=== PATIENT | female | born 1970 | race Caucasian/White ===

== ENCOUNTER 2016-12-02 00:25 | Emergency (ER) | payer OTHER, BC ==
[2016-12-02 00:41] VITALS: BP 157/98; PULSE 64; RESP 18; TEMP 98
[2016-12-02] MEDS ORDERED: AZITHROMYCIN 500 MG TAB PO STA (00:59)
[2016-12-02] MEDS ORDERED: IBUPROFEN 600 MG TAB PO STA (00:59)
--- NOTE | 2016-12-02 01:06 | ED ---
General Adult HPI - General Chief complaint: ENT Stated complaint: Ear Pain Time Seen by Provider: 12/02/16 00:47 Source: patient, RN notes reviewed Mode of arrival: ambulatory Limitations: no limitations - History of Present Illness Initial comments: Patient 46-year-old female who presents emergency room today with a chief complaint of increased pain to the right ear. Does admit that symptoms started week ago. Went to the urgent care 2 days ago had a cerumen impaction and it was irrigated. Does admit that the pain increased today. Does admit that she went back to urgent care had a check. States the pain was so bad she was unable to sleep tonight came here to the emergency room. Patient states that her daughter was diagnosed with a ear infection given antibiotic earlier today as well. Denies any other complaints or symptoms at this time. Patient mitts that she tried children's Tylenol at home with little relief. Patient denies any recent fever, chills, shortness of breath, chest pain, back pain, abdominal pain, nausea or vomiting, numbness or tingling, dysuria or hematuria, constipation or diarrhea, headaches or visual changes, or any other complaints. - Related Data Home Medications Medication Instructions Recorded Confirmed Lisinopril [Zestril] 20 mg PO HS 12/29/13 12/02/16 Multivitamins, Thera [Multivitamin] 1 tab PO DAILY 03/23/16 12/02/16 Previous Rx's Medication Instructions Recorded Azithromycin [Zithromax Z-pack] 0 mg PO DIRECTED #6 tab 12/02/16 Ofloxacin [Ofloxacin 0.3% Otic 10 drops RIGHT EAR BID 7 Days 12/02/16 Soln] Allergies Allergy/AdvReac Type Severity Reaction Status Date / Time Penicillins Allergy Unknown Verified 12/02/16 00:41 Childhood Sulfa (Sulfonamide Allergy Rash/Hives Verified 12/02/16 00:41 Antibiotics) Review of Systems ROS Statement: Those systems with pertinent positive or pertinent negative responses have been documented in the HPI. ROS Other: All systems not noted in ROS Statement are negative. Past Medical History Past Medical History: Hypertension Additional Past Medical History / Comment(s): hx neuroendocrine tumor, liver lesions, heart murmur History of Any Multi-Drug Resistant Organisms: None Reported Past Surgical History: Section, Orthopedic Surgery Additional Past Surgical History / Comment(s): whipple and tumor removed. orthopedic surgery john feet, c-sect x 1 Past Anesthesia/Blood Transfusion Reactions: No Reported Reaction Past Psychological History: No Psychological Hx Reported Smoking Status: Former smoker Past Alcohol Use History: Occasional Past Drug Use History: None Reported - Past Family History Mother Family Medical History: No Reported History General Exam - General Exam Comments Initial Comments: General: The patient is awake and alert, in no distress, and does not appear acutely ill. Eye: Pupils are equal, round and reactive to light, extra-ocular movements are intact. No nystagmus. There is normal conjunctiva bilaterally. No signs of icterus. Ears, nose, mouth and throat: There are moist mucous membranes and no oral lesions. Increased swelling to the right ear canal with white drainage. Difficult to see TM. Left is clear. Neck: The neck is supple, there is no tenderness or JVD. Cardiovascular: There is a regular rate and rhythm. No murmur, rub or gallop is appreciated. Respiratory: Lungs are clear to auscultation, respirations are non-labored, breath sounds are equal. No wheezes, stridor, rales, or rhonchi. Musculoskeletal: Normal ROM, no tenderness. Strength 5/5. Sensation intact. Pulses equal bilaterally 2+. Neurological: A&O x 3. CN II-XII intact, There are no obvious motor or sensory deficits. Coordination appears grossly intact. Speech is normal. Skin: Skin is warm and dry and no rashes or lesions are noted. Psychiatric: Cooperative, appropriate mood & affect, normal judgment. Limitations: no limitations Course Vital Signs 12/02/16 00:37 Temperature 98.0 F Pulse Rate 64 Respiratory 18 Rate Blood Pressure 157/98 O2 Sat by Pulse 100 Oximetry Medical Decision Making - Medical Decision Making Patient's findings are consistent with otitis externa. Will be started on antibiotic drops and oral antibiotic. Advised follow-up with the next 2 days return if any symptoms increase or worsen or for any other concerns. Disposition Clinical Impression: Acute otitis externa of right ear Disposition: HOME SELF-CARE Condition: Good Instructions: Otitis Externa (ED) Additional Instructions: Please use medication as discussed. Please follow-up with family doctor in the next 2 days of symptoms have not improved. Please return to emergency room if the symptoms increase or worsen or for any other concerns. Prescriptions: Azithromycin [Zithromax Z-pack] 0 mg PO DIRECTED #6 tab Ofloxacin [Ofloxacin 0.3% Otic Soln] 10 drops RIGHT EAR BID 7 Days Referrals: Esa Keller DO [Primary Care Provider] - 1-2 days Time of Disposition: 01:06
[2016-12-02] MEDS ORDERED: OFLOXACIN 0.3% OPHTH DROPS 5 ML BOTTLE RIGHT EAR SCH (09:00)
== END 2016-12-02 01:21 | disposition home or self-care (01) ==
LOC: EC 00:25
DX: H60.501 Unspecified acute noninfective otitis externa, right ear (principal); Z88.0 Allergy status to penicillin; Z88.2 Allergy status to sulfonamides; Z79.899 Other long term (current) drug therapy; I10 Essential (primary) hypertension; Z87.891 Personal history of nicotine dependence
CPT/HCPCS: 99282

== ENCOUNTER 2016-12-03 22:56 | Emergency (ER) | payer OTHER, BC ==
[2016-12-04] MEDS ORDERED: HYDROcodone/APAP 5-325MG 1 EACH TAB PO STA (01:08)
--- NOTE | 2016-12-04 01:11 | ED ---
General Adult HPI - General Chief complaint: ENT Stated complaint: Ear Pain Time Seen by Provider: 12/03/16 23:25 Source: patient, family, RN notes reviewed, old records reviewed Mode of arrival: ambulatory Limitations: no limitations - History of Present Illness Initial comments: Chief complaint and history of present illness is a 46-year-old female who presents today with a tender swollen right external canal. Diagnosed with otitis externa yesterday. Her family doctor has her on Augmentin at this time. She was also placed on eardrops but they can't get into the ear canal because it swollen.. A Cantor's otowick will be inserted. - Related Data Home Medications Medication Instructions Recorded Confirmed Lisinopril [Zestril] 20 mg PO HS 12/29/13 12/03/16 Multivitamins, Thera [Multivitamin] 1 tab PO DAILY 03/23/16 12/03/16 Amoxicillin/Potassium Clav 1 tab PO Q12HR 12/03/16 12/03/16 [Augmentin 875-125 Tablet] Ibuprofen [Motrin] 600 mg PO ONCE PRN 12/03/16 12/03/16 Previous Rx's Medication Instructions Recorded Ofloxacin [Ofloxacin 0.3% Otic 10 drops RIGHT EAR BID 7 Days 12/02/16 Soln] Hydrocodone/Acetaminophen [[place] 1 each PO Q6HR PRN #20 tab 12/04/16 5-325] Allergies Allergy/AdvReac Type Severity Reaction Status Date / Time Penicillins Allergy Unknown Verified 12/03/16 23:30 Childhood Sulfa (Sulfonamide Allergy Rash/Hives Verified 12/03/16 23:30 Antibiotics) Review of Systems ROS Statement: Those systems with pertinent positive or pertinent negative responses have been documented in the HPI. Review of systems patient has discomfort around the right ear. Evidence of discharge. Ear was irrigated at the clinic several days ago. Now it is swollen shut. Past medical problems include hypertension and history of neuroendocrine tumors. Surgeries , and a Whipple procedure for neuroendocrine tumor. ALLERGIES penicillin and sulfa ROS Other: All systems not noted in ROS Statement are negative. Past Medical History Past Medical History: Hypertension Additional Past Medical History / Comment(s): hx neuroendocrine tumor, liver lesions, heart murmur History of Any Multi-Drug Resistant Organisms: None Reported Past Surgical History: Section, Orthopedic Surgery Additional Past Surgical History / Comment(s): whipple and tumor removed. orthopedic surgery john feet, c-sect x 1 Past Anesthesia/Blood Transfusion Reactions: No Reported Reaction Past Psychological History: No Psychological Hx Reported Smoking Status: Former smoker Past Alcohol Use History: None Reported Past Drug Use History: None Reported - Past Family History Mother Family Medical History: No Reported History General Exam - General Exam Comments Initial Comments: General: The patient is awake and alert, mild to moderate distress because of the pain of right otitis externa. Vital signs temp 97.1 pulse 71 respiratory rate 18 pulse ox 99% room air blood pressure 155/84 Eye: Pupils are equal, extra-ocular movements are intact; there is normal conjunctiva bilaterally. Ears, nose, mouth and throat: Patient has tenderness and swelling all around the right ear as well as a swollen closed external auditory canal. Patient's been trying to put eardrops in but can't because the canal is closed. Neck: The neck is supple, mild preauricular lymphadenopathy. Limitations: no limitations Course Vital Signs 12/03/16 23:05 Temperature 97.1 F L Pulse Rate 71 Respiratory 18 Rate Blood Pressure 155/84 O2 Sat by Pulse 99 Oximetry Medical Decision Making - Medical Decision Making The patient states she does now to penicillin but she's been taking her Augmentin without problems. She can't remember why as a child she was told she has no ALLERGY. She is not having hives she does not have any respiratory distress. And her oncologist put her on Augmentin. She was advised to continue with this, she does develop some adverse reaction. Also advised to place the eardrops on the Cantor otowick 3 times daily. She will also be referred onto her family physician and follow up with ENT if she is not improved. Disposition Clinical Impression: Right otitis externa Disposition: HOME SELF-CARE Condition: Stable Instructions: Otitis Externa (ED) Additional Instructions: Take [place] in addition to your ibuprofen for pain relief. Continue until complete your antibiotics both eardrops and oral medications. Follow-up with your family physician, your oncologist and if needed on-call ENT Dr. Ramírez Prescriptions: Hydrocodone/Acetaminophen [[place] 5-325] 1 each PO Q6HR PRN #20 tab PRN Reason: Pain Referrals: Esa Keller DO [Primary Care Provider] - 1-2 days
[2016-12-04 01:18] VITALS: BP 157/66; PULSE 82; RESP 16; TEMP 97.8
== END 2016-12-04 01:17 | disposition home or self-care (01) ==
LOC: EC 22:56
DX: H60.91 Unspecified otitis externa, right ear (principal); Z87.891 Personal history of nicotine dependence; I10 Essential (primary) hypertension; Z79.899 Other long term (current) drug therapy; Z88.0 Allergy status to penicillin; Z88.2 Allergy status to sulfonamides
CPT/HCPCS: 99283

== ENCOUNTER 2016-12-04 17:19 | Emergency (ER) | payer OTHER, BC ==
[2016-12-04 17:37] VITALS: BP 164/77; PULSE 66; RESP 20; TEMP 99.6
--- NOTE | 2016-12-04 18:15 | ED ---
General Adult HPI - General Chief complaint: ENT Stated complaint: ENT, Revisit Time Seen by Provider: 12/04/16 17:46 Source: patient, RN notes reviewed, old records reviewed Mode of arrival: ambulatory Limitations: no limitations - History of Present Illness Initial comments: Patient 46-year-old female who presents emergency room today with chief complaint of pain to the right ear. Doesn't that she's been diagnosed with otitis media and externa. Patient states that she has been using antibiotics as prescribed. She states she was seen earlier this morning and had a wick placed in the right ear. She states it has fallen out. She states she still having pain swelling to the area. She states she's been using the hydrocodone that was prescribed with little relief the symptoms. She denies any other complaints or associated symptoms at this time. she does admit that she did try to follow-up with ENT specialist today but was not able to get her appointment until next week. Patient denies any recent fever, chills, shortness of breath, chest pain, back pain, abdominal pain, nausea or vomiting, numbness or tingling , dysuria or hematuria, constipation or diarrhea, headaches or visual changes, or any other complaints. - Related Data Home Medications Medication Instructions Recorded Confirmed Lisinopril [Zestril] 20 mg PO HS 12/29/13 12/03/16 Multivitamins, Thera [Multivitamin] 1 tab PO DAILY 03/23/16 12/03/16 Amoxicillin/Potassium Clav 1 tab PO Q12HR 12/03/16 12/03/16 [Augmentin 875-125 Tablet] Ibuprofen [Motrin] 600 mg PO ONCE PRN 12/03/16 12/03/16 Previous Rx's Medication Instructions Recorded Ofloxacin [Ofloxacin 0.3% Otic 10 drops RIGHT EAR BID 7 Days 12/02/16 Soln] Ciprofloxacin HCl [Cipro] 500 mg PO Q12HR #20 day 12/04/16 Hydrocodone/Acetaminophen [[place] 1 each PO Q6HR PRN #20 tab 12/04/16 5-325] Ofloxacin 0.3% Otic Soln [Floxin 10 drops BOTH EARS BID 7 Days 12/04/16 0.3% Otic Soln] Allergies Allergy/AdvReac Type Severity Reaction Status Date / Time Penicillins Allergy Unknown Verified 12/04/16 17:38 Childhood Sulfa (Sulfonamide Allergy Rash/Hives Verified 12/04/16 17:38 Antibiotics) Review of Systems ROS Statement: Those systems with pertinent positive or pertinent negative responses have been documented in the HPI. ROS Other: All systems not noted in ROS Statement are negative. Past Medical History Past Medical History: Hypertension Additional Past Medical History / Comment(s): hx neuroendocrine tumor, liver lesions, heart murmur History of Any Multi-Drug Resistant Organisms: None Reported Past Surgical History: Section, Orthopedic Surgery Additional Past Surgical History / Comment(s): whipple and tumor removed. orthopedic surgery john feet, c-sect x 1 Past Anesthesia/Blood Transfusion Reactions: No Reported Reaction Past Psychological History: No Psychological Hx Reported Smoking Status: Former smoker Past Alcohol Use History: None Reported Past Drug Use History: None Reported - Past Family History Mother Family Medical History: No Reported History General Exam - General Exam Comments Initial Comments: General: The patient is awake and alert, in no distress, and does not appear acutely ill. Eye: Pupils are equal, round and reactive to light, extra-ocular movements are intact. No nystagmus. There is normal conjunctiva bilaterally. No signs of icterus. Ears, nose, mouth and throat: There are moist mucous membranes and no oral lesions. Neck: The neck is supple, there is no tenderness or JVD. Cardiovascular: There is a regular rate and rhythm. No murmur, rub or gallop is appreciated. Respiratory: Lungs are clear to auscultation, respirations are non-labored, breath sounds are equal. No wheezes, stridor, rales, or rhonchi. Musculoskeletal: Normal ROM, no tenderness. Strength 5/5. Sensation intact. Pulses equal bilaterally 2+. Neurological: A&O x 3. CN II-XII intact, There are no obvious motor or sensory deficits. Coordination appears grossly intact. Speech is normal. Skin: Skin is warm and dry and no rashes or lesions are noted. Psychiatric: Cooperative, appropriate mood & affect, normal judgment. Limitations: no limitations Course Vital Signs 12/04/16 17:32 Temperature 99.6 F Pulse Rate 66 Respiratory 20 Rate Blood Pressure 164/77 O2 Sat by Pulse 99 Oximetry Medical Decision Making - Medical Decision Making Case was discussed with ENT custom protection officer Dr. Ramírez recommends changing antibiotic drop to ciprofloxacin. Patient did have photo were placed here in the emergency room. Patient had antibiotics of ciprofloxacin placed into the right ear canal. Patient tolerated well. Patient will be discharged home advised follow-up with ENT over the next 2 days. Disposition Clinical Impression: Acute otitis externa Disposition: HOME SELF-CARE Condition: Good Instructions: Otitis Externa (ED) Additional Instructions: Please continue antibiotic drops as previously prescribed. Please discontinue Augmentin and use Cipro antibiotic as discussed. Please follow-up with the ENT doctor over the next 2 days. Please return to emergency room if symptoms increase or worsen Prescriptions: Ciprofloxacin HCl [Cipro] 500 mg PO Q12HR #20 day Ofloxacin 0.3% Otic Soln [Floxin 0.3% Otic Soln] 10 drops BOTH EARS BID 7 Days Referrals: Esa Keller DO [Primary Care Provider] - 1-2 days Jung Solares DO [Doctor of Osteopathic Medicine] - 1-2 days Time of Disposition: 18:55
== END 2016-12-04 19:15 | disposition home or self-care (01) ==
LOC: EC 17:19
DX: H60.501 Unspecified acute noninfective otitis externa, right ear (principal); I10 Essential (primary) hypertension; Z87.891 Personal history of nicotine dependence; Z79.899 Other long term (current) drug therapy; Z88.0 Allergy status to penicillin; Z88.2 Allergy status to sulfonamides
CPT/HCPCS: 99283

== ENCOUNTER 2016-12-06 16:05 | Emergency (ER) | payer OTHER, BC ==
[2016-12-06 16:12] VITALS: BP 139/89; PULSE 84; RESP 20; TEMP 97.5
--- NOTE | 2016-12-06 16:45 | ED ---
ENT HPI - General Chief complaint: ENT Stated complaint: Ear Pain Time Seen by Provider: 12/06/16 16:13 Source: patient, RN notes reviewed, old records reviewed Mode of arrival: ambulatory Limitations: no limitations - History of Present Illness Initial comments: This is a 46-year-old female presenting with right ear pain. She's been seen in the emergency department four times due to this ear pain with in the last week. Patient reports that she had in the ear wick placed, but reports that the ear wic came out. . Patient reports she's concerned that the ear wick is still partially within the ear.She reports that her ear is feeling much better after being placed on the appropriate antibiotic yesterday. The swelling has went down.She reports that she still has trouble hearing from the ear. - Related Data Home Medications Medication Instructions Recorded Confirmed Lisinopril [Zestril] 20 mg PO HS 12/29/13 12/03/16 Multivitamins, Thera [Multivitamin] 1 tab PO DAILY 03/23/16 12/03/16 Amoxicillin/Potassium Clav 1 tab PO Q12HR 12/03/16 12/03/16 [Augmentin 875-125 Tablet] Ibuprofen [Motrin] 600 mg PO ONCE PRN 12/03/16 12/03/16 Previous Rx's Medication Instructions Recorded Ofloxacin [Ofloxacin 0.3% Otic 10 drops RIGHT EAR BID 7 Days 12/02/16 Soln] Ciprofloxacin HCl [Cipro] 500 mg PO Q12HR #20 day 12/04/16 Hydrocodone/Acetaminophen [[place] 1 each PO Q6HR PRN #20 tab 12/04/16 5-325] Ofloxacin 0.3% Otic Soln [Floxin 10 drops BOTH EARS BID 7 Days 12/04/16 0.3% Otic Soln] Allergies Allergy/AdvReac Type Severity Reaction Status Date / Time Penicillins Allergy Unknown Verified 12/06/16 16:12 Childhood Sulfa (Sulfonamide Allergy Rash/Hives Verified 12/06/16 16:12 Antibiotics) Review of Systems ROS Statement: Those systems with pertinent positive or pertinent negative responses have been documented in the HPI. ROS Other: All systems not noted in ROS Statement are negative. Past Medical History Past Medical History: Hypertension Additional Past Medical History / Comment(s): hx neuroendocrine tumor, liver lesions, heart murmur History of Any Multi-Drug Resistant Organisms: None Reported Past Surgical History: Section, Orthopedic Surgery Additional Past Surgical History / Comment(s): whipple and tumor removed. orthopedic surgery john feet, c-sect x 1 Past Anesthesia/Blood Transfusion Reactions: No Reported Reaction Past Psychological History: No Psychological Hx Reported Smoking Status: Former smoker Past Alcohol Use History: None Reported Past Drug Use History: None Reported - Past Family History Mother Family Medical History: No Reported History General Exam - General Exam Comments Initial Comments: Well. 46-year-old female.No acute distress. Limitations: no limitations General appearance: alert, in no apparent distress Head exam: Present: atraumatic, normocephalic, normal inspection Eye exam: Present: normal appearance, PERRL, EOMI. Absent: scleral icterus, conjunctival injection, periorbital swelling ENT exam: Present: normal exam, mucous membranes moist. Absent: TM's normal bilaterally (right ear canal is edematous. Not able to visualise TM, however there apears to be wax in the canal, possible retained ear wick. ) Neck exam: Present: normal inspection. Absent: tenderness, meningismus, lymphadenopathy Respiratory exam: Present: normal lung sounds bilaterally. Absent: respiratory distress, wheezes, rales, rhonchi, stridor Cardiovascular Exam: Present: regular rate, normal rhythm, normal heart sounds. Absent: systolic murmur, diastolic murmur, rubs, gallop, clicks GI/Abdominal exam: Present: soft, normal bowel sounds. Absent: distended, tenderness, guarding, rebound, rigid Extremities exam: Present: normal inspection, full ROM, normal capillary refill. Absent: tenderness, pedal edema, joint swelling, calf tenderness Back exam: Present: normal inspection Neurological exam: Present: alert, oriented X3, CN II-XII intact Psychiatric exam: Present: normal affect, normal mood Skin exam: Present: warm, dry, intact, normal color. Absent: rash Course Vital Signs 12/06/16 16:09 Temperature 97.5 F L Pulse Rate 84 Respiratory 20 Rate Blood Pressure 139/89 O2 Sat by Pulse 100 Oximetry Medical Decision Making - Medical Decision Making This is a 46-year-old female presenting with right ear pain. She's been seen in the emergency department four times due to this ear pain with in the last week. She has been diagnosed with otitis externa after having her ear irrigated. Patient reports that she had in the ear wick placed, but reports that the ear wic came out. . Patient reports she's concerned that the ear wick is still partially within the ear.She reports that her ear is feeling much better after being placed on the appropriate antibiotic yesterday. The swelling has went down.She reports that she still has trouble hearing from the ear. Right ear canal is still edematous, and patient TM not fully visualized. She reports it is improving. Possiblity of retained ear wick, multiple attempts to remove the foreign body and it appears to only be ear cerumen. A new ear wick was installed, and I used patient ear drops to place it. Patient agrees to follow upwith ENT. Return parameters discussed. Disposition Clinical Impression: Acute otitis externa of right ear Disposition: HOME SELF-CARE Condition: Good Instructions: Otitis Externa (ED) Additional Instructions: Patient is follow-up with her primary care provider and ENT specialist. Return to the emergency department if any alarming signs or symptoms occur. Take antibiotics as directed. Referrals: Esa Keller DO [Primary Care Provider] - 1-2 days Jung Solares DO [Doctor of Osteopathic Medicine] - 1-2 days Time of Disposition: 16:45
== END 2016-12-06 16:59 | disposition home or self-care (01) ==
LOC: EC 16:05
DX: H60.501 Unspecified acute noninfective otitis externa, right ear (principal); I10 Essential (primary) hypertension; Z87.891 Personal history of nicotine dependence; Z79.899 Other long term (current) drug therapy; Z88.0 Allergy status to penicillin; Z88.2 Allergy status to sulfonamides
CPT/HCPCS: 99283

== ENCOUNTER 2017-01-07 14:59 | Emergency (ER) | payer OTHER, BC ==
[2017-01-07] MEDS ORDERED: ORPHENADRINE 30 MG/ML 2 ML VIAL IM STA (15:30)
[2017-01-07] MEDS ORDERED: KETOROLAC 60 MG/2 ML VIAL IM STA (15:30)
--- NOTE | 2017-01-07 15:30 | ED ---
General Adult HPI - General Chief complaint: Back Pain/Injury Stated complaint: Back Pain Time Seen by Provider: 01/07/17 15:14 Source: patient, RN notes reviewed Mode of arrival: ambulatory Limitations: no limitations - History of Present Illness Initial comments: 46-year-old female presents to the emergency department with a chief complaint of right sided low back pain. Patient states she's been about 2 or 3 days. She states that she twisted she will that she then she has increased pain. 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 Patient states it radiated into her back. Patient states there is no falls traumas or injuries to the area. Patient states she hasn't had any changes in urination any nausea or vomiting. Patient states that she was concerned due to her discomfort so she thought that she should be seen.Patient denies any recent fever, chills, shortness of breath , chest pain, abdominal pain, nausea vomiting, numbness or tingling, dysuria or hematuria, constipation or diarrhea, headaches or visual changes, or any other current symptoms. - Related Data Home Medications Medication Instructions Recorded Confirmed Lisinopril [Zestril] 20 mg PO HS 12/29/13 01/07/17 Multivitamins, Thera [Multivitamin] 1 tab PO DAILY 03/23/16 01/07/17 Previous Rx's Medication Instructions Recorded Ciprofloxacin HCl [Cipro] 500 mg PO Q12HR #14 tablet 01/07/17 Ibuprofen [Motrin] 600 mg PO Q6HR PRN #20 tab 01/07/17 Orphenadrine [Norflex] 100 mg PO Q12H #10 tablet.er 01/07/17 Allergies Allergy/AdvReac Type Severity Reaction Status Date / Time Penicillins Allergy Unknown Verified 01/07/17 15:13 Childhood Sulfa (Sulfonamide Allergy Rash/Hives Verified 01/07/17 15:13 Antibiotics) Review of Systems ROS Statement: Those systems with pertinent positive or pertinent negative responses have been documented in the HPI. ROS Other: All systems not noted in ROS Statement are negative. Past Medical History Past Medical History: Hypertension Additional Past Medical History / Comment(s): hx neuroendocrine tumor, liver lesions, heart murmur History of Any Multi-Drug Resistant Organisms: None Reported Past Surgical History: Section, Orthopedic Surgery Additional Past Surgical History / Comment(s): whipple and tumor removed. orthopedic surgery john feet, c-sect x 1 Past Anesthesia/Blood Transfusion Reactions: No Reported Reaction Past Psychological History: No Psychological Hx Reported Smoking Status: Former smoker Past Alcohol Use History: Rare Past Drug Use History: None Reported - Past Family History Mother Family Medical History: No Reported History General Exam Limitations: no limitations General appearance: alert, in no apparent distress Head exam: Present: atraumatic, normocephalic, normal inspection ENT exam: Present: normal exam, mucous membranes moist Neck exam: Present: normal inspection. Absent: tenderness, meningismus, lymphadenopathy Respiratory exam: Present: normal lung sounds bilaterally. Absent: respiratory distress, wheezes, rales, rhonchi, stridor Cardiovascular Exam: Present: regular rate, normal rhythm, normal heart sounds. Absent: systolic murmur, diastolic murmur, rubs, gallop, clicks Extremities exam: Present: normal inspection, full ROM, normal capillary refill. Absent: tenderness, pedal edema, joint swelling, calf tenderness Back exam: Present: normal inspection, full ROM, paraspinal tenderness (Right). Absent: tenderness, rash noted Expanded Back exam: Negative Straight Leg Raising: Left, Right Neurological exam: Present: alert, oriented X3, CN II-XII intact Psychiatric exam: Present: normal affect, normal mood Skin exam: Present: warm, dry, intact, normal color. Absent: rash Course Vital Signs 01/07/17 15:09 Temperature 99.5 F Pulse Rate 90 Respiratory 20 Rate Blood Pressure 162/88 O2 Sat by Pulse 97 Oximetry Medical Decision Making - Medical Decision Making 46-year-old female presents to the emergency department with what appears to be lumbar strain. xrays reviewed as well as CAT scan and blood work. There is concern for UTI along with lumbar strain.. This time we did discuss follow-up and return parameters all patient's questions. pateint in agreement with plan. Patient will be discharged home. - Lab Data Result diagrams: 01/07/17 15:55 01/07/17 15:55 Lab Results 01/07/17 01/07/17 01/07/17 Range/Units 15:25 15:55 15:55 WBC 8.5 (3.8-10.6) k/uL RBC 4.28 (3.80-5.40) m/uL Hgb 11.6 (11.4-16.0) gm/dL Hct 34.4 (34.0-46.0) % MCV 80.4 (80.0-100.0) fL MCH 27.1 (25.0-35.0) pg MCHC 33.7 (31.0-37.0) g/dL RDW 13.9 (11.5-15.5) % Plt Count 295 (150-450) k/uL Neutrophils % 60 % Lymphocytes % 28 % Monocytes % 4 % Eosinophils % 6 % Basophils % 0 % Neutrophils # 5.1 (1.3-7.7) k/uL Lymphocytes # 2.4 (1.0-4.8) k/uL Monocytes # 0.3 (0-1.0) k/uL Eosinophils # 0.5 (0-0.7) k/uL Basophils # 0.0 (0-0.2) k/uL Sodium 141 (137-145) mmol/L Potassium 4.4 (3.5-5.1) mmol/L Chloride 105 (98-107) mmol/L Carbon Dioxide 26 (22-30) mmol/L Anion Gap 10 mmol/L BUN 13 (7-17) mg/dL Creatinine 0.70 (0.52-1.04) mg/dL Est GFR (MDRD) Af Amer >60 (>60 ml/min/1.73 sqM) Est GFR (MDRD) Non-Af >60 (>60 ml/min/1.73 sqM) Glucose 103 H (74-99) mg/dL Calcium 9.2 (8.4-10.2) mg/dL Total Bilirubin 0.2 (0.2-1.3) mg/dL AST 36 (14-36) U/L ALT 58 H (9-52) U/L Alkaline Phosphatase 84 (38-126) U/L Total Protein 7.0 (6.3-8.2) g/dL Albumin 4.1 (3.5-5.0) g/dL Urine Color Yellow Urine Appearance Clear (Clear) Urine pH 6.5 (5.0-8.0) Ur Specific [place] 1.015 (1.001-1.035) Urine Protein Negative (Negative) Urine Glucose (UA) Negative (Negative) Urine Ketones Negative (Negative) Urine Blood Large H (Negative) Urine Nitrite Negative (Negative) Urine Bilirubin Negative (Negative) Urine Urobilinogen <2.0 (<2.0) mg/dL Ur Leukocyte Esterase Small H (Negative) Urine RBC 42 H (0-5) /hpf Urine WBC 14 H (0-5) /hpf Ur Squamous Epith Cells 3 (0-4) /hpf Amorphous Sediment Occasional H (None) /hpf Urine Bacteria Occasional H (None) /hpf Hyaline Casts 7 H (0-2) /lpf Urine Mucus Rare H (None) /hpf - Radiology Data Radiology results: report reviewed, image reviewed Disposition Clinical Impression: Lumbar strain, UTI (urinary tract infection), Ovarian cyst, Hepatosplenomegaly Disposition: HOME SELF-CARE Condition: Stable Instructions: Low Back Strain (ED), Lower Back Exercises (ED) Additional Instructions: Please use medication as discussed. Please follow up with family doctor if symptoms have not improved over the next two days. Please return to the emergency room if your symptoms increase or worsen or for any other concerns. Prescriptions: Ciprofloxacin HCl [Cipro] 500 mg PO Q12HR #14 tablet Ibuprofen [Motrin] 600 mg PO Q6HR PRN #20 tab PRN Reason: Pain Orphenadrine [Norflex] 100 mg PO Q12H #10 tablet.er Referrals: Esa Keller DO [Primary Care Provider] - 1-2 days Time of Disposition: 16:41
[2017-01-07 15:39] LABS: Amorphous Sediment,Urine Occasional /hpf; Appearance,Urine Clear (Clear); Bacteria,Urine Occasional /hpf; Bilirubin,Urine Negative (Negative); Glucose,Urine (UA) Negative (Negative); Ketones,Urine Negative (Negative); Leukocyte Esterase,Urine Small (Negative); Mucus,Urine Rare /hpf; Nitrite,Urine Negative (Negative); PH, Urine 6.5 (5.0-8.0); Particle Count 3207; Protein,Urine Negative (Negative); RBC,Urine 42 /hpf (0-5); Specific Gravity,Urine 1.015 (1.001-1.035); Squamous Epithelial Cell,Urine 3 /hpf (0-4); UA Billing (MACRO vs. MICRO) MICRO; Urobilinogen,Urine <2.0 mg/dL (<2.0); WBC,Urine 14 /hpf (0-5)
--- NOTE | 2017-01-07 15:46 | XR ---
EXAM TYPE: LUMBAR SPINE X RAY SERIES COMPARISON: NONE HISTORY: right sided lower back pain TECHNIQUE: 4 views are submitted. FINDINGS: Alignment is anatomic. The pedicles are intact. The transverse processes are intact. There is no s pondylolysis or spondylolisthesis. Hypertrophic and degenerative change of the spine seen with most marked findings at L4-5 and L5-S1. IMPRESSION: 1. Degenerative disc disease at multiple levels. Correlate with MRI as clinically warranted.
[2017-01-07] MEDS ORDERED: SODIUM CHLORIDE 0.9% 1,000 ML IV STA (15:47)
[2017-01-07 16:18] LABS: Basophils % (A) 0 %; CH 26.5; CHCM 33.1; Eosinophils # (A) 0.5 k/uL (0-0.7); Eosinophils % (A) 6 %; HCT 34.4 % (34.0-46.0); HGB 11.6 gm/dL (11.4-16.0); Luc # (Auto) 0.14; Luc % (Auto) 2; Lymphocytes # (A) 2.4 k/uL (1.0-4.8); Lymphocytes % (A) 28 %; MCH 27.1 pg (25.0-35.0); MCHC 33.7 g/dL (31.0-37.0); MCV 80.4 fL (80.0-100.0); Mean Platelet Volume 7.2; Monocytes # (A) 0.3 k/uL (0-1.0); Monocytes % (A) 4 %; Neutrophils # (A) 5.1 k/uL (1.3-7.7); Neutrophils % (A) 60 %; RBC 4.28 m/uL (3.80-5.40); RDW 13.9 % (11.5-15.5); WBC 8.5 k/uL (3.8-10.6)
[2017-01-07 16:20] LABS: ALT 58 U/L (9-52); AST 36 U/L (14-36); Alkaline Phosphatase 84 U/L (38-126); Anion Gap 10 mmol/L; Blood Urea Nitrogen 13 mg/dL (7-17); Calcium 9.2 mg/dL (8.4-10.2); Carbon Dioxide 26 mmol/L (22-30); Chloride 105 mmol/L (98-107); Glucose 103 mg/dL (74-99); Non-African American GFR(MDRD) >60 (>60 ml/min/1.73 sqM); Potassium 4.4 mmol/L (3.5-5.1); Sodium 141 mmol/L (137-145); Total Bilirubin 0.2 mg/dL (0.2-1.3)
--- NOTE | 2017-01-07 16:26 | CT ---
EXAMINATION TYPE: CT abdomen pelvis wo con DATE OF EXAM: 01/07/2017 COMPARISON: Previous study dated 05/23/2012 HISTORY: Right flank pain. CT DLP: 1105.00 mGycm Automated exposure control for dose reduction was used. FINDINGS: Visualized portions of the lungs are clear. There is no pleural or pericardial fluid. The h eart is not enlarged. Within the abdomen, the liver is enlarged measuring 24 cm. The spleen is upper limits of normal in si ze measuring 13 cm. The liver is fatty infiltrated with focal areas of fatty sparing. The gallbladder is not identified. Both adrenal glands are normal. There is no evidence of hydronephrosis or nephrolithiasis. Limited views of the pancreas are unremarkable. There is stable, shotty para-aortic and paracaval adenopathy. There is a 2.1 cm right ovarian cyst. There is follicular change in the left ovary. The uterus is unr emarkable. The bladder is unremarkable. There is some thickening in the mid sigmoid colon. Much of the descending colon is collapsed making i t difficult to assess colonic wall thickening. The appendix is normal. Small bowel loops are normal in caliber. There is no free fluid and no free air identified. There is mild degenerative disc disease and hypertrophic spondylosis within the spine. No bony destru ctive lesion is seen. IMPRESSION: 1. HEPATOMEGALY AND BORDERLINE SPLENOMEGALY WITH FATTY INFILTRATION OF THE LIVER. 2. NO EVIDENCE OF NEPHROLITHIASIS OR HYDRONEPHROSIS. 3. 2.1 CM RIGHT OVARIAN CYST. 4. THICKENING IN THE SIGMOID COLON. I CANNOT EXCLUDE SOME THICKENING OF THE DESCENDING COLON. PLEASE CORRELATE CLINICALLY FOR COLITIS. 5. MILD DEGENERATIVE CHANGE IN THE SPINE.
[2017-01-07 16:48] VITALS: BP 159/91; PULSE 69; RESP 18; TEMP 97
== END 2017-01-07 17:02 | disposition home or self-care (01) ==
LOC: EC 14:59
DX: S39.012A Strain of muscle, fascia and tendon of lower back, initial encounter (principal); N83.201 Unspecified ovarian cyst, right side; N39.0 Urinary tract infection, site not specified; R16.2 Hepatomegaly with splenomegaly, not elsewhere classified; I10 Essential (primary) hypertension; Z87.891 Personal history of nicotine dependence; Z79.899 Other long term (current) drug therapy; Z88.0 Allergy status to penicillin; Z88.2 Allergy status to sulfonamides; Z53.20 Procedure and treatment not carried out because of patient's decision for unspecified reasons; X58.XXXA Exposure to other specified factors, initial encounter
CPT/HCPCS: 36415; 80053; 85025; 81001; 87086; 72100; 74176; 99284; 96365; 96361; 96372; J0696; J1885

== ENCOUNTER 2017-03-25 12:08 | Emergency (ER) | payer OTHER, BC ==
[2017-03-25 12:54] VITALS: BP 165/98; PULSE 62; RESP 18; TEMP 97.7
[2017-03-25] MEDS ORDERED: ORPHENADRINE 30 MG/ML 2 ML VIAL IM STA (13:08)
[2017-03-25] MEDS ORDERED: predniSONE 50 MG TAB PO STA (13:08)
--- NOTE | 2017-03-25 13:21 | ED ---
Back Pain HPI - General Chief Complaint: Back Pain/Injury Stated Complaint: Back Pain Time Seen by Provider: 03/25/17 12:54 Source: patient, RN notes reviewed Limitations: no limitations - History of Present Illness Initial Comments: This is a 46-year-old female who presents to the emergency department with chief complaint of right-sided back pain. 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 Patient states that she does repetitive movements of right-sided twisting every day for work. 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 Patient states that she was seen here in December with lumbar back pain and at that time the pain was much worse. When the pain came on this morning she was worried it was going to get as bad as it did in December. Patient states that currently her pain has significantly decreased because she took 400 mg of ibuprofen prior to arrival. Patient also states that while walking this morning she felt radiation of sharp pain down her right buttock which she attributes to sciatica. Patient denies saddle paresthesias or loss of bladder or bowel function. Denies fever, chills, chest pain, shortness of breath, abdominal pain, nausea or vomiting, constipation or diarrhea, dysuria or hematuria, numbness or tingling, headache or vision changes. - Related Data Home Medications Medication Instructions Recorded Confirmed Lisinopril [Zestril] 20 mg PO HS 12/29/13 01/07/17 Multivitamins, Thera [Multivitamin] 1 tab PO DAILY 03/23/16 01/07/17 Previous Rx's Medication Instructions Recorded Ciprofloxacin HCl [Cipro] 500 mg PO Q12HR #14 tablet 01/07/17 Ibuprofen [Motrin] 600 mg PO Q6HR PRN #20 tab 01/07/17 Orphenadrine [Norflex] 100 mg PO Q12H #10 tablet.er 01/07/17 Orphenadrine [Norflex] 100 mg PO Q12H #10 tablet.er 03/25/17 predniSONE 20 mg PO DAILY #4 tab 03/25/17 Allergies Allergy/AdvReac Type Severity Reaction Status Date / Time Penicillins Allergy Unknown Verified 03/25/17 12:54 Childhood Sulfa (Sulfonamide Allergy Rash/Hives Verified 03/25/17 12:54 Antibiotics) Review of Systems ROS Statement: Those systems with pertinent positive or pertinent negative responses have been documented in the HPI. ROS Other: All systems not noted in ROS Statement are negative. Past Medical History Past Medical History: Hypertension Additional Past Medical History / Comment(s): hx neuroendocrine tumor, liver lesions, heart murmur History of Any Multi-Drug Resistant Organisms: None Reported Past Surgical History: Section, Orthopedic Surgery Additional Past Surgical History / Comment(s): whipple and tumor removed. orthopedic surgery john feet, c-sect x 1 Past Anesthesia/Blood Transfusion Reactions: No Reported Reaction Past Psychological History: No Psychological Hx Reported Smoking Status: Former smoker Past Alcohol Use History: Rare Past Drug Use History: None Reported - Past Family History Mother Family Medical History: No Reported History General Exam - General Exam Comments Initial Comments: General: Awake and alert, well-developed; in no apparent distress. Pleasant and cooperative woman. HEENT: Head atraumatic, normocephalic. Pupils are equal, round and reactive to light. Extraocular movements intact. Oropharynx moist without erythema or exudate. Neck: Supple. Normal ROM. No tenderness. Cardiovascular: Regular rate and rhythm. No murmurs, rubs or gallops. Chest symmetrical. Respiratory: Lungs clear to auscultation bilaterally. No wheezes, rales or rhonchi. Normal respiratory effort with no use of accessory muscles. Musculoskeletal: Patient has full and active range of motion of full spine. There is tenderness on palpation of right sided paraspinal muscles. No vertebral bony point tenderness. Pain is elicited with right side-bending and twisting. Sensation is intact. Pedal and posterior tibial pulses are 2+ equal and palpable bilaterally. No CVA tenderness bilaterally. Skin: [place], warm and dry without rashes or lesions. Neurological: Alert and oriented x3. CN II-XII grossly intact. Speech is fluent and answers are appropriate. No focal neuro deficits. Psychiatric: Normal mood and affect. No overt signs of depression or anxiety noted. Limitations: no limitations Course Vital Signs 03/25/17 12:49 Temperature 97.7 F Pulse Rate 62 Respiratory 18 Rate Blood Pressure 165/98 O2 Sat by Pulse 100 Oximetry Medical Decision Making - Medical Decision Making This is a 46-year-old female who presents to the emergency department with chief complaint of right-sided lumbar back pain. Patient denies any injury or trauma. 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 Patient denies any saddle paresthesias or loss of bladder or bowel function. She denies any numbness or tingling. Patient is in no acute distress at this time and is feeling well. While in the emergency department she was given steroids and a muscle relaxer. She will be discharged home with a short course of steroids and muscle relaxers. She was also recommended to continue taking ibuprofen as needed. Patient is in agreement to the plan and voices understanding. All questions were answered. Disposition Clinical Impression: Strain of lumbar region, Sciatica Disposition: HOME SELF-CARE Condition: Good Instructions: Sciatica (ED), Low Back Strain (ED), Lower Back Exercises (ED) Additional Instructions: Please take medications as prescribed. Please follow up with primary care provider within 1-2 days. Return to emergency department if symptoms should worsen or any concerns arise. Prescriptions: Orphenadrine [Norflex] 100 mg PO Q12H #10 tablet.er predniSONE 20 mg PO DAILY #4 tab Referrals: Esa Keller DO [Primary Care Provider] - 1-2 days Time of Disposition: 13:37
== END 2017-03-25 13:35 | disposition home or self-care (01) ==
LOC: EC 12:08
DX: S39.012A Strain of muscle, fascia and tendon of lower back, initial encounter (principal); M54.31 Sciatica, right side; I10 Essential (primary) hypertension; Z87.891 Personal history of nicotine dependence; Z88.0 Allergy status to penicillin; Z88.2 Allergy status to sulfonamides; Z79.899 Other long term (current) drug therapy; X50.3XXA Overexertion from repetitive movements, initial encounter; Y93.89 Activity, other specified
CPT/HCPCS: 99283; 96372; J2360; J7512

== ENCOUNTER → 2018-09-08 | Outpatient (CLI) | payer OTHER, BC ==
--- NOTE | 2018-09-09 12:58 | MM ---
Reason for exam: screening (asymptomatic). Last mammogram was performed 5 years ago. History: Patient history of other cancer. Family history of breast cancer in paternal grandmother. Physical Findings: A clinical breast exam by your physician is recommended on an annual basis and results should be correlated with mammographic findings. MG 3D Screening Mammo W/Cad Bilateral CC and MLO view(s) were taken. Prior study comparison: September 05, 2013, bilateral digital screening mammo w/CAD. June 13, 2010, bilateral digital screening mammo w/CAD. The breast tissue is heterogeneously dense. This may lower the sensitivity of mammography. There is no discrete abnormality. ASSESSMENT: Negative, BI-RAD 1 RECOMMENDATION: Routine screening mammogram of both breasts in 1 year.
== END | disposition home or self-care (01) ==
LOC: RADMAMWWP 13:33
PROVIDERS: ATTEND Obstetrics & Gynecology
DX: Z12.31 Encounter for screening mammogram for malignant neoplasm of breast (principal)
CPT/HCPCS: 77063; 77067

== ENCOUNTER → 2019-01-23 | Outpatient (CLI) | payer OTHER, BC ==
[2019-01-23 20:53] LABS: Basophils % (A) 1 %; Eosinophils # (A) 0.1 k/uL (0-0.7); Eosinophils % (A) 4 %; HCT 31.3 % (34.0-46.0); HGB 10.5 gm/dL (11.4-16.0); Lymphocytes # (A) 1.2 k/uL (1.0-4.8); Lymphocytes % (A) 35 %; MCH 26.5 pg (25.0-35.0); MCHC 33.7 g/dL (31.0-37.0); MCV 78.5 fL (80.0-100.0); Mean Platelet Volume 8.7; Monocytes # (A) 0.1 k/uL (0-1.0); Monocytes % (A) 4 %; Neutrophils # (A) 1.9 k/uL (1.3-7.7); Neutrophils % (A) 55 %; Platelet Count 230 k/uL (150-450); RBC 3.98 m/uL (3.80-5.40); RDW 12.8 % (11.5-15.5); WBC 3.5 k/uL (3.8-10.6)
== END | disposition home or self-care (01) ==
LOC: LABWHC1 15:52
PROVIDERS: ATTEND Radiology Radiation Oncology
DX: C79.51 Secondary malignant neoplasm of bone (principal)
CPT/HCPCS: 36415; 85025

== ENCOUNTER 2019-05-29 10:45 | Emergency (ER) | payer OTHER, BC ==
[2019-05-29 11:36] LABS: Glucose,Whole Blood 362 mg/dL (75-99)
--- NOTE | 2019-05-29 11:45 | ED ---
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 hale. Patient also is a diabetic. Patient states that her sugars were over 400 and she's been very thirsty and urinating a lot so she decided come to the emergency department today. - Related Data Home Medications Medication Instructions Recorded Confirmed Lisinopril [Zestril] 20 mg PO HS 12/29/13 02/28/19 Multivitamins, Thera [Multivitamin] 1 tab PO DAILY 03/23/16 02/28/19 Cyclobenzaprine [Flexeril] 5 mg PO DAILY 02/28/19 02/28/19 Octreotide Lar [SandoSTATIN LAR] 20 mg SQ QMONTH 02/28/19 02/28/19 Ondansetron HCl 8 mg PO DAILY 02/28/19 02/28/19 Vit D3/Folic Acid/B2/B6/B12 1 tab PO DAILY 02/28/19 02/28/19 [Folgard Tablet] metFORMIN HCL 500 mg PO DAILY 02/28/19 02/28/19 metFORMIN HCL [metFORMIN HCL ER 1,000 mg PO DAILY 02/28/19 02/28/19 Osmotic] Previous Rx's Medication Instructions Recorded Ciprofloxacin HCl [Cipro] 500 mg PO Q12HR #14 tablet 01/07/17 Ibuprofen [Motrin] 600 mg PO Q6HR PRN #20 tab 01/07/17 Allergies Allergy/AdvReac Type Severity Reaction Status Date / Time Penicillins Allergy Unknown Verified 05/29/19 10:55 Childhood Sulfa (Sulfonamide Allergy Rash/Hives Verified 05/29/19 10:55 Antibiotics) Review of Systems ROS Statement: Those systems with pertinent positive or pertinent negative responses have been documented in the HPI. ROS Other: All systems not noted in ROS Statement are negative. Past Medical History Past Medical History: Cancer, Chest Pain / Angina, Diabetes Mellitus, Hy pertension Additional Past Medical History / Comment(s): hx neuroendocrine tumor, liver lesions, heart murmur History of Any Multi-Drug Resistant Organisms: None Reported Past Surgical History: Section, Orthopedic Surgery Additional Past Surgical History / Comment(s): whipple and tumor removed. orthopedic surgery john feet, c-sect x 1 Past Anesthesia/Blood Transfusion Reactions: No Reported Reaction Past Psychological History: No Psychological Hx Reported Smoking Status: Former smoker Past Alcohol Use History: None Reported Past Drug Use History: None Reported - Past Family History Mother Family Medical History: No Reported History General Exam - General Exam Comments Initial Comments: GENERAL: Patient is well-developed and well-nourished. Patient is nontoxic and well- hydrated and is in no acute distress. ENT: Neck is soft and supple. No significant lymphadenopathy is noted. Oropharynx is clear. Moist mucous membranes. Neck has full range of motion without eliciting any pain. EYES: The sclera were anicteric and conjunctiva were pink and moist. Extraocular movements were intact and pupils were equal round and reactive to light. Eyelids were unremarkable. PULMONARY: Unlabored respirations. Good breath sounds bilaterally. No audible rales rhonchi or wheezing was noted. CARDIOVASCULAR: There is a regular rate and rhythm without any murmurs gallops or rubs. ABDOMEN: Soft and nontender with normal bowel sounds. No palpable organomegaly was noted. There is no palpable pulsatile mass. SKIN: Skin is clear with no lesions or rashes and otherwise unremarkable. NEUROLOGIC: Patient is alert and oriented x3. Cranial nerves II through XII are grossly intact. Motor and sensory are also intact. Normal speech, volume and content. Symmetrical smile. MUSCULOSKELETAL: Normal extremities with adequate strength and full range of motion. No lower extremity swelling or edema. No calf tenderness. LYMPHATICS: No significant lymphadenopathy is noted PSYCHIATRIC: Normal psychiatric evaluation. Limitations: no limitations Course Vital Signs 05/29/19 10:50 Temperature 98.3 F Pulse Rate 77 Respiratory 18 Rate Blood Pressure 164/102 O2 Sat by Pulse 98 Oximetry Medical Decision Making - Medical Decision Making EKG shows normal sinus rhythm at 70 bpm KS interval is 146 QRS is under QT intervals 400 QTC is 432. Patient's EKG shows no ST segment elevation or depression or T wave abnormalities are noted. Patient's chest x-ray shows no acute abnormality. Patient was given 10 units of NovoLog in the emergency department and her glucose started to come down. Patient also was given a liter half of fluid. Patient states she was already given Jardiance but has not started it yet. She states she will start and follow-up with her doctor as soon as possible ensured he has an appointment Dr. Gallardo on Wednesday. - Lab Data Result diagrams: 05/29/19 11:37 05/29/19 11:37 Lab Results 05/29/19 05/29/19 05/29/19 Range/Units 11:35 11:37 11:37 WBC 4.3 (3.8-10.6) k/uL RBC 4.62 (3.80-5.40) m/uL Hgb 11.9 (11.4-16.0) gm/dL Hct 35.4 (34.0-46.0) % MCV 76.6 L (80.0-100.0) fL MCH 25.8 (25.0-35.0) pg MCHC 33.6 (31.0-37.0) g/dL RDW 13.9 (11.5-15.5) % Plt Count 220 (150-450) k/uL Neutrophils % 70 % Lymphocytes % 19 % Monocytes % 4 % Eosinophils % 4 % Basophils % 1 % Neutrophils # 3.0 (1.3-7.7) k/uL Lymphocytes # 0.8 L (1.0-4.8) k/uL Monocytes # 0.2 (0-1.0) k/uL Eosinophils # 0.2 (0-0.7) k/uL Basophils # 0.0 (0-0.2) k/uL Sodium 136 L (137-145) mmol/L Potassium 4.4 (3.5-5.1) mmol/L Chloride 99 (98-107) mmol/L Carbon Dioxide 26 (22-30) mmol/L Anion Gap 11 mmol/L BUN 17 (7-17) mg/dL Creatinine 0.68 (0.52-1.04) mg/dL Est GFR (CKD-EPI)AfAm >90 (>60 ml/min/1.73 sqM) Est GFR (CKD-EPI)NonAf >90 (>60 ml/min/1.73 sqM) Glucose 369 H (74-99) mg/dL POC Glucose (mg/dL) 362 H (75-99) mg/dL POC Glu Sleeve Setter Safety Stitch ID [place] Calcium 9.4 (8.4-10.2) mg/dL Total Bilirubin 0.5 (0.2-1.3) mg/dL AST 115 H (14-36) U/L ALT 116 H (4-34) U/L Alkaline Phosphatase 108 (38-126) U/L Total Protein 7.8 (6.3-8.2) g/dL Albumin 4.5 (3.5-5.0) g/dL Urine Color Urine Appearance (Clear) Urine pH (5.0-8.0) Ur Specific [place] (1.001-1.035) Urine Protein (Negative) Urine Glucose (UA) (Negative) Urine Ketones (Negative) Urine Blood (Negative) Urine Nitrite (Negative) Urine Bilirubin (Negative) Urine Urobilinogen (<2.0) mg/dL Ur Leukocyte Esterase (Negative) Urine RBC (0-5) /hpf Urine WBC (0-5) /hpf Ur Squamous Epith Cells (0-4) /hpf Urine Bacteria (None) /hpf Acetone, Qual Negative (Negative) 05/29/19 05/29/19 05/29/19 Range/Units 11:37 12:45 13:23 WBC (3.8-10.6) k/uL RBC (3.80-5.40) m/uL Hgb (11.4-16.0) gm/dL Hct (34.0-46.0) % MCV (80.0-100.0) fL MCH (25.0-35.0) pg MCHC (31.0-37.0) g/dL RDW (11.5-15.5) % Plt Count (150-450) k/uL Neutrophils % % Lymphocytes % % Monocytes % % Eosinophils % % Basophils % % Neutrophils # (1.3-7.7) k/uL Lymphocytes # (1.0-4.8) k/uL Monocytes # (0-1.0) k/uL Eosinophils # (0-0.7) k/uL Basophils # (0-0.2) k/uL Sodium (137-145) mmol/L Potassium (3.5-5.1) mmol/L Chloride (98-107) mmol/L Carbon Dioxide (22-30) mmol/L Anion Gap mmol/L BUN (7-17) mg/dL Creatinine (0.52-1.04) mg/dL Est GFR (CKD-EPI)AfAm (>60 ml/min/1.73 sqM) Est GFR (CKD-EPI)NonAf (>60 ml/min/1.73 sqM) Glucose (74-99) mg/dL POC Glucose (mg/dL) 338 H 311 H (75-99) mg/dL POC Glu Sleeve Setter Safety Stitch ID [place], Helga [place], Helga Calcium (8.4-10.2) mg/dL Total Bilirubin (0.2-1.3) mg/dL AST (14-36) U/L ALT (4-34) U/L Alkaline Phosphatase (38-126) U/L Total Protein (6.3-8.2) g/dL Albumin (3.5-5.0) g/dL Urine Color Yellow Urine Appearance Clear (Clear) Urine pH 5.5 (5.0-8.0) Ur Specific Hardy 1.029 (1.001-1.035) Urine Protein Trace H (Negative) Urine Glucose (UA) 4+ H (Negative) Urine Ketones Negative (Negative) Urine Blood Moderate H (Negative) Urine Nitrite Negative (Negative) Urine Bilirubin Negative (Negative) Urine Urobilinogen <2.0 (<2.0) mg/dL Ur Leukocyte Esterase Negative (Negative) Urine RBC 34 H (0-5) /hpf Urine WBC 1 (0-5) /hpf Ur Squamous Epith Cells 1 (0-4) /hpf Urine Bacteria Rare H (None) /hpf Acetone, Qual (Negative) Disposition Clinical Impression: Hyperglycemia Disposition: HOME SELF-CARE Condition: Good Instructions (If sedation given, give patient instructions): Diabetic Hyperglycemia (ED) Additional Instructions: Patient is to follow-up with primary medical care doctor for elevated sugars. Is patient prescribed a controlled substance at d/c from ED?: No Referrals: Esa Keller DO [Primary Care Provider] - 1-2 days Time of Disposition: 13:25
[2019-05-29] MEDS ORDERED: INSULIN ASPART (NovoLOG) 100 UNIT/ML VIAL SQ ONE ×2 (11:46→11:47)
[2019-05-29] MEDS ORDERED: SODIUM CHLORIDE 0.9% 500 ML 500 ML IV ONE (11:47)
[2019-05-29] MEDS ORDERED: SODIUM CHLORIDE 0.9% 1,000 ML IV ONE (11:47)
[2019-05-29 12:19] LABS: ALT 116 U/L (4-34); AST 115 U/L (14-36); African American GFR (CKD) >90 (>60 ml/min/1.73 sqM); Albumin 4.5 g/dL (3.5-5.0); Alkaline Phosphatase 108 U/L (38-126); Anion Gap 11 mmol/L; Blood Urea Nitrogen 17 mg/dL (7-17); Calcium 9.4 mg/dL (8.4-10.2); Carbon Dioxide 26 mmol/L (22-30); Chloride 99 mmol/L (98-107); Glucose 369 mg/dL (74-99); Non-African American GFR(CKD) >90 (>60 ml/min/1.73 sqM); Potassium 4.4 mmol/L (3.5-5.1); Sodium 136 mmol/L (137-145); Total Bilirubin 0.5 mg/dL (0.2-1.3); Total Protein 7.8 g/dL (6.3-8.2)
--- NOTE | 2019-05-29 12:19 | XR ---
EXAMINATION TYPE: XR chest 2V DATE OF EXAM: 05/29/2019 COMPARISON: 05/23/2012 HISTORY: Chest pain TECHNIQUE: Frontal and lateral views of the chest are obtained. FINDINGS: There is no focal air space opacity. No evidence for pneumothorax. No pleural effusion. The cardiac silhouette size is within normal limits. The osseous structures are grossly intact. IMPRESSION: 1. No acute cardiopulmonary process.
[2019-05-29 12:24] LABS: Basophils % (A) 1 %; Eosinophils # (A) 0.2 k/uL (0-0.7); Eosinophils % (A) 4 %; HCT 35.4 % (34.0-46.0); HGB 11.9 gm/dL (11.4-16.0); Lymphocytes # (A) 0.8 k/uL (1.0-4.8); Lymphocytes % (A) 19 %; MCH 25.8 pg (25.0-35.0); MCHC 33.6 g/dL (31.0-37.0); MCV 76.6 fL (80.0-100.0); Mean Platelet Volume 8.6; Monocytes # (A) 0.2 k/uL (0-1.0); Monocytes % (A) 4 %; Neutrophils % (A) 70 %; Platelet Count 220 k/uL (150-450); RBC 4.62 m/uL (3.80-5.40); RDW 13.9 % (11.5-15.5); WBC 4.3 k/uL (3.8-10.6)
[2019-05-29 12:26] LABS: Appearance,Urine Clear (Clear); Bacteria,Urine Rare /hpf; Bilirubin,Urine Negative (Negative); Blood,Urine Moderate (Negative); Color,Urine Yellow; Glucose,Urine (UA) 4+ (Negative); Ketones,Urine Negative (Negative); Leukocyte Esterase,Urine Negative (Negative); Nitrite,Urine Negative (Negative); PH, Urine 5.5 (5.0-8.0); Protein,Urine Trace (Negative); RBC,Urine 34 /hpf (0-5); Specific Gravity,Urine 1.029 (1.001-1.035); Squamous Epithelial Cell,Urine 1 /hpf (0-4); Urobilinogen,Urine <2.0 mg/dL (<2.0); WBC,Urine 1 /hpf (0-5)
[2019-05-29 12:48] LABS: Glucose,Whole Blood 338 mg/dL (75-99)
[2019-05-29 13:26] LABS: Glucose,Whole Blood 311 mg/dL (75-99)
[2019-05-29 13:46] VITALS: BP 154/92; PULSE 76; RESP 16; TEMP 98
== END 2019-05-29 13:44 | disposition home or self-care (01) ==
LOC: EC 10:45
DX: E11.65 Type 2 diabetes mellitus with hyperglycemia (principal); I10 Essential (primary) hypertension; Z87.891 Personal history of nicotine dependence; Z88.0 Allergy status to penicillin; Z88.2 Allergy status to sulfonamides; Z79.84 Long term (current) use of oral hypoglycemic drugs; Z79.899 Other long term (current) drug therapy; Z85.858 Personal history of malignant neoplasm of other endocrine glands; Z98.890 Other specified postprocedural states
CPT/HCPCS: 36415; 71046; 80053; 81001; 82009; 85025; 93005; 96360; 99285

== ENCOUNTER 2019-06-02 08:36 | Inpatient (IN) | payer OTHER, BC ==
[2019-06-02] MEDS ORDERED: HYDROmorphone 1 MG/ML 1 ML SYRINGE IVP STA (09:03)
[2019-06-02] MEDS ORDERED: SODIUM CHLORIDE 0.9% 1,000 ML IV STA (09:03)
--- NOTE | 2019-06-02 09:08 | ED ---
General Adult HPI - General Chief complaint: Abdominal Pain Stated complaint: ride sided pain Time Seen by Provider: 06/02/19 08:57 Source: patient, RN notes reviewed Mode of arrival: ambulatory Limitations: no limitations - History of Present Illness Initial comments: Patient is a pleasant 58-year-old female presenting to the emergency Department with right-sided rib pain. Onset of symptoms was around an hour ago. Symptoms started after eating cereal. Patient states she has had her gallbladder removed during her Whipple procedure years ago. No nausea or vomiting. No constipation or diarrhea. Discomfort is a right lower ribs and patient states that does wrap around towards the back. Discomfort does increase somewhat with breathing and movement. Otherwise no shortness of breath. Discomfort is waxing and waning and is up to 8/10. No history of similar symptoms previously. - Related Data Home Medications Medication Instructions Recorded Confirmed Lisinopril [Zestril] 20 mg PO HS 12/29/13 06/02/19 metFORMIN HCL 1,000 mg PO BID 02/28/19 06/02/19 Afinitor 10mg 10 mg PO HS 06/02/19 06/02/19 Calcium Carbonate [Calcium] 600 mg PO DAILY 06/02/19 06/02/19 Cholecalciferol [Vitamin D3 (25 1,000 unit PO DAILY 06/02/19 06/02/19 Mcg = 1000 Iu)] Empagliflozin [Jardiance] 10 mg PO HS 06/02/19 06/02/19 Ferrous Sulfate [Feosol] 325 mg PO DAILY 06/02/19 06/02/19 Insulin Aspart [NovoLOG Flexpen] See Protocol SQ ACHS 06/02/19 06/02/19 Insulin Glargine,Hum.rec.anlog 10 unit SQ HS 06/02/19 06/02/19 [Lantus Solostar] Octreotide Lar [SandoSTATIN LAR] 30 mg IM Q30D 06/02/19 06/02/19 Allergies Allergy/AdvReac Type Severity Reaction Status Date / Time Penicillins Allergy Unknown Verified 06/02/19 10:20 Childhood Sulfa (Sulfonamide Allergy Rash/Hives Verified 06/02/19 10:20 Antibiotics) GANOLINIUM CONTRAST Allergy Unknown Uncoded 06/02/19 10:20 Review of Systems ROS Statement: Those systems with pertinent positive or pertinent negative responses have been documented in the HPI. ROS Other: All systems not noted in ROS Statement are negative. Constitutional: Denies: fever, chills Eyes: Denies: eye pain ENT: Denies: as per HPI, throat pain Respiratory: Denies: cough, dyspnea Cardiovascular: Reports: as per HPI Endocrine: Denies: as per HPI Gastrointestinal: Reports: as per HPI Genitourinary: Denies: dysuria Musculoskeletal: Reports: as per HPI Skin: Denies: rash Neurological: Denies: weakness Past Medical History Past Medical History: Cancer, Chest Pain / Angina, Diabetes Mellitus, Hypertension Additional Past Medical History / Comment(s): hx neuroendocrine tumor, liver lesions, heart murmur History of Any Multi-Drug Resistant Organisms: None Reported Past Surgical History: Section, Orthopedic Surgery Additional Past Surgical History / Comment(s): whipple and tumor removed. orthopedic surgery john feet, c-sect x 1 Past Anesthesia/Blood Transfusion Reactions: No Reported Reaction Past Psychological History: No Psychological Hx Reported Smoking Status: Former smoker Past Alcohol Use History: None Reported Past Drug Use History: None Reported - Past Family History Mother Family Medical History: No Reported History General Exam Limitations: no limitations General appearance: alert, other (Patient does appear uncomfortable at times) Head exam: Present: normocephalic Eye exam: Present: normal appearance Neck exam: Present: normal inspection Respiratory exam: Present: normal lung sounds bilaterally. Absent: chest wall tenderness Cardiovascular Exam: Present: regular rate, normal rhythm Expanded Peripheral pulses: 2+: Posterior Tibialis (R), Posterior Tibialis (L), Dorsalis Pedis (R), Dorsalis Pedis (L) GI/Abdominal exam: Present: soft, normal bowel sounds. Absent: distended, tenderness, guarding, rebound, rigid, pulsatile mass Extremities exam: Present: normal inspection. Absent: pedal edema, calf tenderness Back exam: Present: normal inspection. Absent: tenderness, CVA tenderness (R) Neurological exam: Present: alert Psychiatric exam: Present: normal affect, normal mood Skin exam: Present: normal color Course Vital Signs 06/02/19 06/02/19 06/02/19 08:45 08:50 09:50 Temperature 98.2 F Pulse Rate 98 90 Respiratory 18 20 20 Rate Blood Pressure 142/80 140/85 145/92 O2 Sat by Pulse 96 96 96 Oximetry 06/02/19 06/02/19 10:00 11:00 Temperature Pulse Rate 90 85 Respiratory 20 20 Rate Blood Pressure 140/92 135/91 O2 Sat by Pulse 96 96 Oximetry EKG Findings - EKG Comments: EKG Findings:: Normal sinus rhythm 87. UT 164. QRS 98. QT 386. QTc 464. Normal axis. Normal QRS. No acute ST change. Medical Decision Making - Medical Decision Making Patient reevaluated and resting comfortably in bed. Abdomen soft and nontender. Patient and family updated on results and plan. Case was discussed with Dr. Sexton, covering for Dr. Mack, who admits for Dr. Keller, who will admit. - Lab Data Result diagrams: 06/02/19 08:57 06/02/19 08:57 Lab Results 06/02/19 06/02/19 06/02/19 Range/Units 08:57 08:57 08:57 WBC 6.6 (3.8-10.6) k/uL RBC 4.86 (3.80-5.40) m/uL Hgb 12.7 (11.4-16.0) gm/dL Hct 38.0 (34.0-46.0) % MCV 78.2 L (80.0-100.0) fL MCH 26.1 (25.0-35.0) pg MCHC 33.4 (31.0-37.0) g/dL RDW 13.9 (11.5-15.5) % Plt Count 291 (150-450) k/uL Neutrophils % 78 % Lymphocytes % 15 % Monocytes % 3 % Eosinophils % 3 % Basophils % 0 % Neutrophils # 5.2 (1.3-7.7) k/uL Lymphocytes # 1.0 (1.0-4.8) k/uL Monocytes # 0.2 (0-1.0) k/uL Eosinophils # 0.2 (0-0.7) k/uL Basophils # 0.0 (0-0.2) k/uL PT 9.4 (9.0-12.0) sec INR 0.9 (<1.2) APTT 23.1 (22.0-30.0) sec Sodium 142 (137-145) mmol/L Potassium 3.9 (3.5-5.1) mmol/L Chloride 106 (98-107) mmol/L Carbon Dioxide 20 L (22-30) mmol/L Anion Gap 16 mmol/L BUN 23 H (7-17) mg/dL Creatinine 0.75 (0.52-1.04) mg/dL Est GFR (CKD-EPI)AfAm >90 (>60 ml/min/1.73 sqM) Est GFR (CKD-EPI)NonAf >90 (>60 ml/min/1.73 sqM) Glucose 321 H (74-99) mg/dL Calcium 9.2 (8.4-10.2) mg/dL Total Bilirubin 0.6 (0.2-1.3) mg/dL AST 123 H (14-36) U/L ALT 124 H (4-34) U/L Alkaline Phosphatase 107 (38-126) U/L Creatine Kinase 216 H (30-135) U/L Troponin I (0.000-0.034) ng/mL Total Protein 8.2 (6.3-8.2) g/dL Albumin 4.5 (3.5-5.0) g/dL Amylase 40 (30-110) U/L Lipase 41 (23-300) U/L Urine Color Urine Appearance (Clear) Urine pH (5.0-8.0) Ur Specific [place] (1.001-1.035) Urine Protein (Negative) Urine Glucose (UA) (Negative) Urine Ketones (Negative) Urine Blood (Negative) Urine Nitrite (Negative) Urine Bilirubin (Negative) Urine Urobilinogen (<2.0) mg/dL Ur Leukocyte Esterase (Negative) Urine RBC (0-5) /hpf Urine WBC (0-5) /hpf Ur Squamous Epith Cells (0-4) /hpf 06/02/19 06/02/19 Range/Units 08:57 10:30 WBC (3.8-10.6) k/uL RBC (3.80-5.40) m/uL Hgb (11.4-16.0) gm/dL Hct (34.0-46.0) % MCV (80.0-100.0) fL MCH (25.0-35.0) pg MCHC (31.0-37.0) g/dL RDW (11.5-15.5) % Plt Count (150-450) k/uL Neutrophils % % Lymphocytes % % Monocytes % % Eosinophils % % Basophils % % Neutrophils # (1.3-7.7) k/uL Lymphocytes # (1.0-4.8) k/uL Monocytes # (0-1.0) k/uL Eosinophils # (0-0.7) k/uL Basophils # (0-0.2) k/uL PT (9.0-12.0) sec INR (<1.2) APTT (22.0-30.0) sec Sodium (137-145) mmol/L Potassium (3.5-5.1) mmol/L Chloride (98-107) mmol/L Carbon Dioxide (22-30) mmol/L Anion Gap mmol/L BUN (7-17) mg/dL Creatinine (0.52-1.04) mg/dL Est GFR (CKD-EPI)AfAm (>60 ml/min/1.73 sqM) Est GFR (CKD-EPI)NonAf (>60 ml/min/1.73 sqM) Glucose (74-99) mg/dL Calcium (8.4-10.2) mg/dL Total Bilirubin (0.2-1.3) mg/dL AST (14-36) U/L ALT (4-34) U/L Alkaline Phosphatase (38-126) U/L Creatine Kinase (30-135) U/L Troponin I <0.012 (0.000-0.034) ng/mL Total Protein (6.3-8.2) g/dL Albumin (3.5-5.0) g/dL Amylase (30-110) U/L Lipase (23-300) U/L Urine Color Light Yellow Urine Appearance Clear (Clear) Urine pH 5.0 (5.0-8.0) Ur Specific [place] 1.029 (1.001-1.035) Urine Protein Negative (Negative) Urine Glucose (UA) 4+ H (Negative) Urine Ketones Negative (Negative) Urine Blood Moderate H (Negative) Urine Nitrite Negative (Negative) Urine Bilirubin Negative (Negative) Urine Urobilinogen <2.0 (<2.0) mg/dL Ur Leukocyte Esterase Small H (Negative) Urine RBC 12 H (0-5) /hpf Urine WBC 9 H (0-5) /hpf Ur Squamous Epith Cells 1 (0-4) /hpf - Radiology Data Radiology results: report reviewed (CT angios chest showschanges to suspect pulmonary embolism however suboptimal study. No dissection of the aorta. Computed tomography scan of the abdomen pelvis shows possible right upper to mid abdomen enteritis or partial small bowel obstruction.) Disposition Clinical Impression: Abdominal pain Disposition: ADMITTED IP TO THIS HOSP Is patient prescribed a controlled substance at d/c from ED?: No Referrals: Esa Keller DO [Primary Care Provider] - 1-2 days Decision Time: 11:29
[2019-06-02 09:15] LABS: Basophils % (A) 0 %; Eosinophils # (A) 0.2 k/uL (0-0.7); Eosinophils % (A) 3 %; HGB 12.7 gm/dL (11.4-16.0); Lymphocytes % (A) 15 %; MCH 26.1 pg (25.0-35.0); MCHC 33.4 g/dL (31.0-37.0); MCV 78.2 fL (80.0-100.0); Monocytes # (A) 0.2 k/uL (0-1.0); Monocytes % (A) 3 %; Neutrophils # (A) 5.2 k/uL (1.3-7.7); Neutrophils % (A) 78 %; Platelet Count 291 k/uL (150-450); RBC 4.86 m/uL (3.80-5.40); RDW 13.9 % (11.5-15.5); WBC 6.6 k/uL (3.8-10.6)
[2019-06-02 09:24] LABS: ALT 124 U/L (4-34); AST 123 U/L (14-36); African American GFR (CKD) >90 (>60 ml/min/1.73 sqM); Albumin 4.5 g/dL (3.5-5.0); Alkaline Phosphatase 107 U/L (38-126); Amylase 40 U/L (30-110); Anion Gap 16 mmol/L; Blood Urea Nitrogen 23 mg/dL (7-17); Calcium 9.2 mg/dL (8.4-10.2); Carbon Dioxide 20 mmol/L (22-30); Chloride 106 mmol/L (98-107); Creatine Kinase 216 U/L (30-135); Glucose 321 mg/dL (74-99); Non-African American GFR(CKD) >90 (>60 ml/min/1.73 sqM); Potassium 3.9 mmol/L (3.5-5.1); Sodium 142 mmol/L (137-145); Total Bilirubin 0.6 mg/dL (0.2-1.3); Total Protein 8.2 g/dL (6.3-8.2)
[2019-06-02 09:30] LABS: INR 0.9 (<1.2); Partial Thromboplastin Time 23.1 sec (22.0-30.0); Prothrombin Time 9.4 sec (9.0-12.0)
[2019-06-02 10:54] LABS: Appearance,Urine Clear (Clear); Bilirubin,Urine Negative (Negative); Blood,Urine Moderate (Negative); Color,Urine Light Yellow; Glucose,Urine (UA) 4+ (Negative); Ketones,Urine Negative (Negative); Leukocyte Esterase,Urine Small (Negative); Nitrite,Urine Negative (Negative); Protein,Urine Negative (Negative); RBC,Urine 12 /hpf (0-5); Specific Gravity,Urine 1.029 (1.001-1.035); Squamous Epithelial Cell,Urine 1 /hpf (0-4); Urobilinogen,Urine <2.0 mg/dL (<2.0); WBC,Urine 9 /hpf (0-5)
--- NOTE | 2019-06-02 10:54 | CT ---
EXAMINATION TYPE: CT abdomen pelvis w con DATE OF EXAM: 06/02/2019 HISTORY: RUQ pain CT DLP: 1002mGycm Automated Exposure Control for Dose Reduction was Utilized. CONTRAST: CT scan of the abdomen and pelvis is performed with oral and with IV Contrast, patient injected with 100 mL of Isovue 370. COMPARISON: CT January 07, [address] May 23, 2012 FINDINGS: LUNG BASES: Please refer to same day CTA chest report for complete details on the lung bases. Persist ent elevated right hemidiaphragm. LIVER/GB: Persistent low dense diffuse appearance to liver consistent with diffuse fatty infiltration . Liver size stable and measures upper limits of normal. PANCREAS: No significant abnormality is seen. SPLEEN: Spleen is mildly enlarged at 13.4 cm long axis axial image 26. ADRENALS: No significant abnormality is seen. KIDNEYS: Symmetric cortical medullary uptake and excretion without hydronephrosis bilaterally. BOWEL: Oral contrast only and stomach makes evaluation majority of bowel suboptimal. There is no susp icious small bowel dilatation. Few small bowel loops in the right upper to mid abdomen are fluid-fill ed and slightly prominent measuring nearly after 3.0 cm in diameter with some air-fluid levels. Fecal material is seen in nondistended colon along the periphery. Slight redundancy of the sigmoid colon. Poor visualization of duodenal sweep due to suboptimal opacification and adjacent bowel loops. Linear curvilinear density right upper quadrant redemonstrated near coronal image 39 significantly changed from prior. UTERUS/ADNEXA: Anteverted uterus projects just to left of midline. LYMPH NODES: No greater than 1cm abdominal or pelvic lymph nodes are appreciated. OSSEOUS STRUCTURES: Endplate sclerosis inferior L2 level with [id number] spurring. Additional m [id number] multilevel spurring greatest at L4 level. OTHER: No significant additional abnormality is seen. IMPRESSION: Possible right upper to mid abdominal enteritis and/or partial proximal small bowel obstr uction. Correlate clinically.
--- NOTE | 2019-06-02 10:57 | CT ---
EXAMINATION TYPE: CT angio chest DATE OF EXAM: 06/02/2019 COMPARISON: 05/23/2012 HISTORY: RUQ pain, history of pancreatic cancer with Whipple procedure MR right rib pain00 CT DLP: 1013.6 mGycm, Automated exposure control for dose reduction was used. CONTRAST: Performed injected with 100 mL of Isovue 370. TECHNIQUE: Axial images were obtained at 5 mm thick sections. Reconstructed images are reviewed on [employer] computer in the coronal plane. Contrast timing is suboptimal for pulmonary embolism evaluation. No aortic dissection is identified. FINDINGS: Portion of the thyroid visualized is normal. No suspicious lung nodules or focal infiltrates are present. No enlarged mediastinal or hilar adenopathy is evident. The ascending aorta diameter at the level o f the main pulmonary artery is 3.8 cm. The main pulmonary artery diameter at the bifurcation is 3.[address] sections are obtained through the upper abdomen. There is moderate fatty infiltration thro ugh the enlarged liver. No suspicious osseous abnormality is evident. IMPRESSIONS: 1. No suspicious changes to suggest acute pulmonary embolism. However, examination is suboptimal with contrast timing. Smaller pulmonary emboli may not be visualized. 2. No aortic dissection.
[2019-06-02] MEDS ORDERED: NALOXONE 0.4 MG/ML 1 ML VIAL IV PRN (11:29)
[2019-06-02] MEDS ORDERED: HYDROmorphone 1 MG/ML 1 ML SYRINGE IVP PRN (11:29)
[2019-06-02 12:28] LABS: Glucose,Whole Blood 185 mg/dL (75-99)
[2019-06-02] MEDS: SODIUM CHLORIDE 0.9% 1,000 ML IV SCH ×2 (12:33→21:13)
[2019-06-02] MEDS: INSULIN ASPART (NovoLOG) 100 UNIT/ML VIAL SQ SCH ×3 (12:34→20:41)
[2019-06-02] MEDS ORDERED: ONDANSETRON 4 MG/2 ML VIAL IVP PRN (15:40)
[2019-06-02 16:43] LABS: Glucose,Whole Blood 173 mg/dL (75-99)
[2019-06-02] MEDS: HEPARIN SODIUM,PORCINE 5,000 UNIT/ML 1 ML VIAL SQ SCH ×2 (16:51→23:13)
--- NOTE | 2019-06-02 18:32 | P.GSCN ---
History of Present Illness Consult date: 06/02/19 History of present illness: CHIEF COMPLAINT: Small bowel obstruction HISTORY OF PRESENT ILLNESS: The patient is a 48 year old female who is admitted secondary to small bowel obstruction. She reports this started acutely this morning right upper quadrant crampy and sharp steady abdominal pain, less than 18 hours ago. She denies any alleviating or modifying factors. She has history for Whipple procedure 7 years ago at [facility] for pancreatic neuroendocrine tumor. She follows up with oncologist. 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 She is now passing flatus which is new since this morning. She still reports right upper quadrant abdominal pain initially intense now tolerable. No significant emesis. PAST MEDICAL HISTORY: See list. PAST SURGICAL HISTORY: See list. MEDICATIONS: See list. ALLERGIES: See list. SOCIAL HISTORY: See list. FAMILY HISTORY: See list. REVIEW OF ORGAN SYSTEMS: CONSTITUTIONAL: No fevers or chills. No recent weight loss. EYES: Denies any trouble with vision. HEENT: No difficulties with hearing. No nosebleeds. No difficulty swallowing. RESPIRATORY: Denies pneumonia. Denies any troubles with breathing or dyspnea on exertion. CARDIOVASCULAR: Denies any chest pain, palpitations, or recent heart attacks. Has hypertension. GASTROINTESTINAL: Denies fatty food intolerance. Denies change in bowel habits and gas bloat. GENITOURINARY: Denies any blood in urine or increased urinary frequency. NEUROLOGICAL: Denies any numbness or tingling along the distal extremities. No seizure disorders or headaches. MUSCULOSKELETAL: Has back pain, stiffness or joint arthritis. SKIN: No current skin cancer. No rash. PSYCHIATRIC: Denies current depression or suicidal thoughts. ENDOCRINE: Denies current thyroid disorders.Has blood sugar glucose intolerance. 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 No recent deep venous thrombosis. ALLERGY/IMMUNOLOGY: On chemotherapy BREAST: Denies current breast lumps, pain or nipple discharge. PHYSICAL EXAM: VITALS: Reviewed CONSTITUTIONAL: Well developed and in no acute distress. EYES: Conjuctivae without sclera icterus. Extraocular movements grossly intact. HEAD, EARS, NOSE, THROAT: Moist buccal mucosa. Head is atraumatic, normocephalic. Hears conversational speech. No nasal drainage. NECK: Supple. No JV distention. RESPIRATORY: Non-labored respirations and equal bilateral excursions. No gross wheezes. CARDIOVASCULAR: Regular rate and rhythm. Palpable 2+ radial pulses. ABDOMEN: Soft. No peritonitis. MUSCULOSKELETAL: Nail and fingers with good capillary refill. SKIN: Warm and well perfused with good skin turgor. NEUROLOGIC: Cranial nerves I through XII grossly intact. Sensation upper and extremities intact. No focal or lateralizing signs. PSYCH: Appropriate affect. Alert and oriented to person, place and time. Displays appropriate insight. CLINCAL LABS: Reviewed. WBC normal. AST and ALT elevated IMAGING: CT of the abdomen and pelvis independently reviewed by me demonstrating mild localized dilated loop right upper quadrant. Rest of the abdomen suspic ious for ileus. RADIOLOGY: Report reviewed ASSESSMENT: 1. Small bowel obstruction, resolving 2. History of Whipple for pancreatic neuroendocrine tumor 3. Diabetes type 2, insulin dependent PLAN: 1. Recommend repeat abdominal x-ray. 2. May start liquid diet. 3. Likely no surgical prevention needed at this time. Thank you for this kind consultation. Past Medical History Past Medical History: Cancer, Chest Pain / Angina, Diabetes Mellitus, Hypertension Additional Past Medical History / Comment(s): hx neuroendocrine tumor, liver lesions, heart murmur History of Any Multi-Drug Resistant Organisms: None Reported Past Surgical History: Section, Orthopedic Surgery Additional Past Surgical History / Comment(s): whipple and tumor removed. orthopedic surgery john feet, c-sect x 1 Past Anesthesia/Blood Transfusion Reactions: No Reported Reaction Past Psychological History: No Psychological Hx Reported Smoking Status: Former smoker Past Alcohol Use History: None Reported Additional Past Alcohol Use History / Comment(s): smoked 10-12 years 1/2 ppd quit age 27 Past Drug Use History: None Reported - Past Family History Mother Family Medical History: No Reported History Medications and Allergies Home Medications Medication Instructions Recorded Confirmed Type Lisinopril [Zestril] 20 mg PO HS 12/29/13 06/02/19 History metFORMIN HCL 1,000 mg PO BID 02/28/19 06/02/19 History Afinitor 10mg 10 mg PO HS 06/02/19 06/02/19 History Calcium Carbonate [Calcium] 600 mg PO DAILY 06/02/19 06/02/19 History Cholecalciferol [Vitamin D3 (25 1,000 unit PO DAILY 06/02/19 06/02/19 History Mcg = 1000 Iu)] Empagliflozin [Jardiance] 10 mg PO HS 06/02/19 06/02/19 History Ferrous Sulfate [Feosol] 325 mg PO DAILY 06/02/19 06/02/19 History Insulin Aspart [NovoLOG Flexpen] See Protocol SQ ACHS 06/02/19 06/02/19 History Insulin Glargine,Hum.rec.anlog 10 unit SQ HS 06/02/19 06/02/19 History [Lantus Solostar] Octreotide Lar [SandoSTATIN LAR] 30 mg IM Q30D 06/02/19 06/02/19 History Allergies Allergy/AdvReac Type Severity Reaction Status Date / Time Penicillins Allergy Unknown Verified 06/02/19 10:20 Childhood Sulfa (Sulfonamide Allergy Rash/Hives Verified 06/02/19 10:20 Antibiotics) GANOLINIUM CONTRAST Allergy Unknown Uncoded 06/02/19 10:20 Surgical - Exam Vital Signs Temp Pulse Resp BP Pulse Ox 98.2 F 98 18 142/80 96 06/02/19 08:45 06/02/19 08:45 06/02/19 08:45 06/02/19 08:45 06/02/19 08:45 Results - Labs 06/02/19 08:57 06/02/19 08:57 Abnormal Lab Results - Last 24 Hours (Table) 06/02/19 06/02/19 06/02/19 Range/Units 08:57 08:57 10:30 MCV 78.2 L (80.0-100.0) fL Carbon Dioxide 20 L (22-30) mmol/L BUN 23 H (7-17) mg/dL Glucose 321 H (74-99) mg/dL POC Glucose (mg/dL) (75-99) mg/dL AST 123 H (14-36) U/L ALT 124 H (4-34) U/L Creatine Kinase 216 H (30-135) U/L Urine Glucose (UA) 4+ H (Negative) Urine Blood Moderate H (Negative) Ur Leukocyte Esterase Small H (Negative) Urine RBC 12 H (0-5) /hpf Urine WBC 9 H (0-5) /hpf 06/02/19 06/02/19 Range/Units 12:26 16:41 MCV (80.0-100.0) fL Carbon Dioxide (22-30) mmol/L BUN (7-17) mg/dL Glucose (74-99) mg/dL POC Glucose (mg/dL) 185 H 173 H (75-99) mg/dL AST (14-36) U/L ALT (4-34) U/L Creatine Kinase (30-135) U/L Urine Glucose (UA) (Negative) Urine Blood (Negative) Ur Leukocyte Esterase (Negative) Urine RBC (0-5) /hpf Urine WBC (0-5) /hpf Diabetes panel 06/02/19 Range/Units 08:57 Sodium 142 (137-145) mmol/L Potassium 3.9 (3.5-5.1) mmol/L Chloride 106 (98-107) mmol/L Carbon Dioxide 20 L (22-30) mmol/L BUN 23 H (7-17) mg/dL Creatinine 0.75 (0.52-1.04) mg/dL Glucose 321 H (74-99) mg/dL Calcium 9.2 (8.4-10.2) mg/dL AST 123 H (14-36) U/L ALT 124 H (4-34) U/L Alkaline Phosphatase 107 (38-126) U/L Total Protein 8.2 (6.3-8.2) g/dL Albumin 4.5 (3.5-5.0) g/dL Calcium panel 06/02/19 Range/Units 08:57 Calcium 9.2 (8.4-10.2) mg/dL Albumin 4.5 (3.5-5.0) g/dL Pituitary panel 06/02/19 Range/Units 08:57 Sodium 142 (137-145) mmol/L Potassium 3.9 (3.5-5.1) mmol/L Chloride 106 (98-107) mmol/L Carbon Dioxide 20 L (22-30) mmol/L BUN 23 H (7-17) mg/dL Creatinine 0.75 (0.52-1.04) mg/dL Glucose 321 H (74-99) mg/dL Calcium 9.2 (8.4-10.2) mg/dL Adrenal panel 06/02/19 Range/Units 08:57 Sodium 142 (137-145) mmol/L Potassium 3.9 (3.5-5.1) mmol/L Chloride 106 (98-107) mmol/L Carbon Dioxide 20 L (22-30) mmol/L BUN 23 H (7-17) mg/dL Creatinine 0.75 (0.52-1.04) mg/dL Glucose 321 H (74-99) mg/dL Calcium 9.2 (8.4-10.2) mg/dL Total Bilirubin 0.6 (0.2-1.3) mg/dL AST 123 H (14-36) U/L ALT 124 H (4-34) U/L Alkaline Phosphatase 107 (38-126) U/L Total Protein 8.2 (6.3-8.2) g/dL Albumin 4.5 (3.5-5.0) g/dL Assessment and Plan (1) Small bowel obstruction Current Visit: Yes Status: Acute Code(s): K56.609 - UNSP INTESTNL OBST, UNSP TO PARTIAL VERSUS COMPLETE OBST SNOMED Code(s): 926804352 (2) H/O resection of pancreas Current Visit: Yes Status: Acute Code(s): Z90.410 - ACQUIRED TOTAL ABSENCE OF PANCREAS SNOMED Code(s): 065611640 (3) Diabetes mellitus, insulin dependent (IDDM), controlled Current Visit: Yes Status: Acute Code(s): E11.9 - TYPE 2 DIABETES MELLITUS WITHOUT COMPLICATIONS; Z79.4 - CLINICAL REVIEW NURSE (CURRENT) USE OF INSULIN SNOMED Code(s): 51795570 (4) Neuroendocrine tumor of pancreas Current Visit: Yes Status: Acute Code(s): D3A.8 - OTHER BENIGN NEUROENDOCRINE TUMORS SNOMED Code(s): 223886821 (5) Morbid obesity due to excess calories Current Visit: Yes Status: Acute Code(s): E66.01 - MORBID (SEVERE) OBESITY DUE TO EXCESS CALORIES SNOMED Code(s): 334080182 (6) Metastatic disease Current Visit: Yes Status: Acute Code(s): C79.9 - SECONDARY MALIGNANT NEOPLASM OF UNSPECIFIED SITE SNOMED Code(s): 781633922
[2019-06-02 20:02] LABS: Glucose,Whole Blood 157 mg/dL (75-99)
[2019-06-02] MEDS ORDERED: INSULIN DETEMIR (LEVEMIR) 100 UNIT/ML SYR SQ SCH (21:00)
[2019-06-02] MEDS ORDERED: LISINOPRIL 20 MG TAB PO SCH (21:00)
--- NOTE | 2019-06-02 22:53 | P.HPIM ---
History of Present Illness H&P Date: 06/02/19 Chief Complaint: Right-sided rib pain. Patient is a 48 old female with a known history of metastatic pancreatic neuroendocrine tumor to her liver lung and spine, history of Whipple's procedure secondary to neuroendocrine tumor 7 years ago at [facility], diabetes type 2, hypertension, osteoarthritis and previous history of smoking came to ER with complaints of right-sided chest pain. Chest pain is mainly right lower rib cage and right upper quadrant abdominal pain. Associated with nausea. Discomfort is mainly at right lower ribs and wraps around towards the back. Associated with some shortness of breath. Pain is 8 x 10 in severity. Patient presented to ER for evaluation. CT of abdomen pelvis showed right upper to mid abdominal enteritis, partial small bowel obstruction. Correlate clinically CT angiogram of the chest showed no evidence of pulmonary embolism. EKG showed normal sinus rhythm. Laboratory data reviewed. Blood sugar is greater than 350 elevated AST and ALT Review of Systems Constitutional: Patient denies any fever or chills . No generalized weakness or weight loss. Abdomen: Patient denied nausea vomiting and diarrhea and abdominal pain. Right upper quadrant pain. Cardiovascular: Patient denies any chest pain or short of breath no palpitations. Respiratory: patient denied any cough is from production. No shortness of breath Neurologic: Patient denied any numbness or tingling headache. Musculoskeletal: Patient denies any complaints of joint swelling or deformity. Skin: Negative Psychiatric: Negative Endocrine: No heat or cold intolerance. No recent weight gain. Genitourinary: No dysuria or hematuria. All other 14 point ROS negative except the above Past Medical History Past Medical History: Cancer, Chest Pain / Angina, Diabetes Mellitus, Hypertension Additional Past Medical History / Comment(s): hx neuroendocrine tumor, liver lesions, heart murmur History of Any Multi-Drug Resistant Organisms: None Reported Past Surgical History: Section, Orthopedic Surgery Additional Past Surgical History / Comment(s): whipple and tumor removed. orthopedic surgery john feet, c-sect x 1 Past Anesthesia/Blood Transfusion Reactions: No Reported Reaction Past Psychological History: No Psychological Hx Reported Smoking Status: Former smoker Past Alcohol Use History: None Reported Additional Past Alcohol Use History / Comment(s): smoked 10-12 years 1/2 ppd quit age 27 Past Drug Use History: None Reported - Past Family History Mother Family Medical History: No Reported History Medications and Allergies Home Medications Medication Instructions Recorded Confirmed Type Lisinopril [Zestril] 20 mg PO HS 12/29/13 06/02/19 History metFORMIN HCL 1,000 mg PO BID 02/28/19 06/02/19 History Afinitor 10mg 10 mg PO HS 06/02/19 06/02/19 History Calcium Carbonate [Calcium] 600 mg PO DAILY 06/02/19 06/02/19 History Cholecalciferol [Vitamin D3 (25 1,000 unit PO DAILY 06/02/19 06/02/19 History Mcg = 1000 Iu)] Empagliflozin [Jardiance] 10 mg PO HS 06/02/19 06/02/19 History Ferrous Sulfate [Feosol] 325 mg PO DAILY 06/02/19 06/02/19 History Insulin Aspart [NovoLOG Flexpen] See Protocol SQ ACHS 06/02/19 06/02/19 History Insulin Glargine,Hum.rec.anlog 10 unit SQ HS 06/02/19 06/02/19 History [Lantus Solostar] Octreotide Lar [SandoSTATIN LAR] 30 mg IM Q30D 06/02/19 06/02/19 History Allergies Allergy/AdvReac Type Severity Reaction Status Date / Time Penicillins Allergy Unknown Verified 06/02/19 10:20 Childhood Sulfa (Sulfonamide Allergy Rash/Hives Verified 06/02/19 10:20 Antibiotics) GANOLINIUM CONTRAST Allergy Unknown Uncoded 06/02/19 10:20 Physical Exam Vitals: Vital Signs Temp Pulse Pulse Resp BP BP Pulse Ox 06/02/19 14:57 98.1 F 68 16 138/89 98 06/02/19 12:06 78 20 134/93 97 06/02/19 12:00 98.2 F 80 16 146/87 99 06/02/19 11:00 85 20 135/91 96 06/02/19 10:00 90 20 140/92 96 06/02/19 09:50 90 20 145/92 96 06/02/19 08:50 20 140/85 96 06/02/19 08:45 98.2 F 98 18 142/80 96 Intake and Output 06/02/19 06/02/19 06/02/19 06:59 14:59 22:59 Other: Weight 101.605 kg PHYSICAL EXAMINATION: Patient is lying in the bed comfortably, no acute distress, awake alert and oriented.. HEENT: Normocephalic. Neck is supple. Pupils reactive. Nostrils clear. Oral cavity is moist. Ears reveal no drainage. Neck reveals no JVD, carotid bruits, or thyromegaly. CHEST EXAMINATION: Trachea is central. Symmetrical expansion. Lung corley clear to auscultation and percussion. CARDIAC: Normal S1, S2 with no gallops. No murmurs ABDOMEN: Soft. Upper abdominal tenderness. No guarding no rigidity. Bowel sounds normal. No organomegaly. No abdominal bruits. Extremities: reveal no edema. No clubbing or cyanosis Neurologically awake, alert, oriented x3 with well-coordinated movements. No focal deficits noted Skin: No rash or skin lesions. Psychiatric: Coperative. Nonsuicidal Musculoskeletal: No joint swelling or deformity. Normal range of motion. Results CBC & Chem 7: 06/02/19 08:57 06/02/19 08:57 Labs: Abnormal Lab Results - Last 24 Hours (Table) 06/02/19 06/02/19 06/02/19 Range/Units 08:57 08:57 10:30 MCV 78.2 L (80.0-100.0) fL Carbon Dioxide 20 L (22-30) mmol/L BUN 23 H (7-17) mg/dL Glucose 321 H (74-99) mg/dL POC Glucose (mg/dL) (75-99) mg/dL AST 123 H (14-36) U/L ALT 124 H (4-34) U/L Creatine Kinase 216 H (30-135) U/L Urine Glucose (UA) 4+ H (Negative) Urine Blood Moderate H (Negative) Ur Leukocyte Esterase Small H (Negative) Urine RBC 12 H (0-5) /hpf Urine WBC 9 H (0-5) /hpf 06/02/19 06/02/19 06/02/19 Range/Units 12:26 16:41 20:00 MCV (80.0-100.0) fL Carbon Dioxide (22-30) mmol/L BUN (7-17) mg/dL Glucose (74-99) mg/dL POC Glucose (mg/dL) 185 H 173 H 157 H (75-99) mg/dL AST (14-36) U/L ALT (4-34) U/L Creatine Kinase (30-135) U/L Urine Glucose (UA) (Negative) Urine Blood (Negative) Ur Leukocyte Esterase (Negative) Urine RBC (0-5) /hpf Urine WBC (0-5) /hpf Thrombosis Risk Factor Assmnt - DVT/VTE Prophylaxis DVT/VTE Prophylaxis: Pharmacologic Prophylaxis ordered Assessment and Plan Assessment: Right upper quadrant abdominal pain with CT evidence of enteritis and partial small bowel obstruction Partial small bowel obstruction Hyperglycemia with uncontrolled diabetes type 2. Insulin-dependent. History of pancreatic neuroendocrine tumor status post Whipple's procedure in 7 years ago and metastasis to lung and liver and bones Previous history of smoking Hypertension Morbid obesity with BMI 35.1 DVT prophylaxis with heparin subcu Plan: Patient will be continued on IV fluids, pain management and nothing by mouth until patient is able to tolerate oral diet. Symptomatic management for nausea and vomiting. Gen. surgery was consulted. No surgical intervention recommended at this time. Follow up closely. Time with Patient: Greater than 30
[2019-06-03 06:55] LABS: Glucose,Whole Blood 147 mg/dL (75-99)
[2019-06-03] MEDS: INSULIN ASPART (NovoLOG) 100 UNIT/ML VIAL SQ SCH ×2 (07:07→12:12)
--- NOTE | 2019-06-03 07:08 | XR ---
EXAMINATION TYPE: XR abdomen 2V , 3 VIEWS DATE OF EXAM ORDERED: 06/03/2019 HISTORY: ileus. COMPARISON: Previous study dated 05/23/2012. FINDINGS: The lung bases are clear. Within the abdomen, there is contrast within the colon from a previous CT scan of the abdomen from . There is no evidence of obstruction or free air. No unusual calcifications are seen. IMPRESSION: NO ACUTE INTRA-ABDOMINAL ABNORMALITY.
[2019-06-03 07:33] LABS: Basophils % (A) 1 %; Eosinophils # (A) 0.1 k/uL (0-0.7); Eosinophils % (A) 2 %; HCT 33.5 % (34.0-46.0); HGB 10.7 gm/dL (11.4-16.0); Lymphocytes # (A) 0.6 k/uL (1.0-4.8); Lymphocytes % (A) 21 %; MCH 25.4 pg (25.0-35.0); MCV 79.3 fL (80.0-100.0); Monocytes # (A) 0.2 k/uL (0-1.0); Monocytes % (A) 6 %; Neutrophils # (A) 2.1 k/uL (1.3-7.7); Neutrophils % (A) 69 %; Platelet Count 173 k/uL (150-450); RBC 4.22 m/uL (3.80-5.40); RDW 14.2 % (11.5-15.5); WBC 3.1 k/uL (3.8-10.6)
[2019-06-03 07:53] LABS: ALT 99 U/L (4-34); AST 85 U/L (14-36); African American GFR (CKD) >90 (>60 ml/min/1.73 sqM); Albumin 3.5 g/dL (3.5-5.0); Alkaline Phosphatase 93 U/L (38-126); Anion Gap 8 mmol/L; Blood Urea Nitrogen 15 mg/dL (7-17); Calcium 8.5 mg/dL (8.4-10.2); Carbon Dioxide 26 mmol/L (22-30); Chloride 108 mmol/L (98-107); Glucose 150 mg/dL (74-99); Non-African American GFR(CKD) >90 (>60 ml/min/1.73 sqM); Potassium 3.8 mmol/L (3.5-5.1); Sodium 142 mmol/L (137-145); Total Bilirubin 0.6 mg/dL (0.2-1.3); Total Protein 6.6 g/dL (6.3-8.2)
[2019-06-03] MEDS: HEPARIN SODIUM,PORCINE 5,000 UNIT/ML 1 ML VIAL SQ SCH ×2 (08:23→16:03)
[2019-06-03] MEDS: SODIUM CHLORIDE 0.9% 1,000 ML IV SCH (08:24)
[2019-06-03] MEDS ORDERED: PANTOPRAZOLE 40 MG/10 ML VIAL IV SCH (09:00)
[2019-06-03 11:43] LABS: Glucose,Whole Blood 255 mg/dL (75-99)
--- NOTE | 2019-06-03 14:49 | P.PN ---
Subjective Progress Note Date: 06/03/19 CHIEF COMPLAINT: Small bowel obstruction HISTORY OF PRESENT ILLNESS: The patient is a 48 year old female who is admitted secondary to small bowel obstruction yesterday. She presented with focal right upper quadrant abdominal pain. Today, "I feel great.". She is tolerating liquids. Her abdominal pain is resolved. No nausea and vomiting. She is eager for discharge. She also reports eating a pineapple pizza where she had emesis last night and feels so much better. REVIEW OF ORGAN SYSTEMS: No nausea or vomiting today. No fevers or chills. PHYSICAL EXAM: VITALS: Reviewed CONSTITUTIONAL: Well developed and in no acute distress. EYES: Conjuctivae without sclera icterus. Extraocular movements grossly intact. HEAD, EARS, NOSE, THROAT: Moist buccal mucosa. Head is atraumatic, normocephal ic. Hears conversational speech. No nasal drainage. NECK: Supple. No JV distention. RESPIRATORY: Non-labored respirations and equal bilateral excursions. No gross wheezes. CARDIOVASCULAR: Regular rate and rhythm. Palpable 2+ radial pulses. ABDOMEN: Soft. No peritonitis. Nontender MUSCULOSKELETAL: Nail and fingers with good capillary refill. SKIN: Warm and well perfused with good skin turgor. NEUROLOGIC: Cranial nerves I through XII grossly intact. Sensation upper and extremities intact. No focal or lateralizing signs. PSYCH: Appropriate affect. Alert and oriented to person, place and time. Displays appropriate insight. IMAGING: Abdominal x-ray independently reviewed demonstrating no bowel obstruction free air or dilated small intestine. RADIOLOGY: Report reviewed abdominal x-ray done obstructive bowel gas pattern ASSESSMENT: 1. Small bowel obstruction, resolved 2. History of Whipple for pancreatic neuroendocrine tumor 3. Diabetes type 2, insulin dependent PLAN: 1. Regular diet. 2. May discharge home once tolerating diet 3. Follow-up as outpatient as needed Objective - Vital Signs Vital signs: Vital Signs Temp 97.7 F 06/03/19 07:00 Pulse 62 06/03/19 07:00 Resp 17 06/03/19 07:00 BP 142/86 06/03/19 07:00 Pulse Ox 99 06/03/19 07:00 Intake & Output 06/02/19 06/03/19 06/03/19 18:59 06:59 18:59 Intake Total 1380 Balance 1380 Weight 101.605 kg Intake: Intake, IV Titration 800 Amount Sodium Chloride 0.9% 1, 800 000 ml @ 100 mls/hr IV . Q10H [facility] Rx#:[id number] Oral 580 Other: # Voids 1 2 - Labs CBC & Chem 7: 06/03/19 06:28 06/03/19 06:28 Labs: Abnormal Lab Results - Last 24 Hours (Table) 06/02/19 06/02/19 06/03/19 Range/Units 16:41 20:00 06:28 WBC (3.8-10.6) k/uL Hgb (11.4-16.0) gm/dL Hct (34.0-46.0) % MCV (80.0-100.0) fL Lymphocytes # (1.0-4.8) k/uL Chloride 108 H (98-107) mmol/L Glucose 150 H (74-99) mg/dL POC Glucose (mg/dL) 173 H 157 H (75-99) mg/dL AST 85 H (14-36) U/L ALT 99 H (4-34) U/L 06/03/19 06/03/19 06/03/19 Range/Units 06:28 06:52 11:41 WBC 3.1 L (3.8-10.6) k/uL Hgb 10.7 L (11.4-16.0) gm/dL Hct 33.5 L (34.0-46.0) % MCV 79.3 L (80.0-100.0) fL Lymphocytes # 0.6 L (1.0-4.8) k/uL Chloride (98-107) mmol/L Glucose (74-99) mg/dL POC Glucose (mg/dL) 147 H 255 H (75-99) mg/dL AST (14-36) U/L ALT (4-34) U/L Assessment and Plan (1) Small bowel obstruction Current Visit: Yes Status: Acute Code(s): K56.609 - UNSP INTESTNL OBST, UNSP TO PARTIAL VERSUS COMPLETE OBST SNOMED Code(s): 923495861 (2) H/O resection of pancreas Current Visit: Yes Status: Acute Code(s): Z90.410 - ACQUIRED TOTAL ABSENCE OF PANCREAS SNOMED Code(s): 506941216 (3) Diabetes mellitus, insulin dependent (IDDM), controlled Current Visit: Yes Status: Acute Code(s): E11.9 - TYPE 2 DIABETES MELLITUS WITHOUT COMPLICATIONS; Z79.4 - LONGTERM (CURRENT) USE OF INSULIN SNOMED Code(s): 90751450 (4) Neuroendocrine tumor of pancreas Current Visit: Yes Status: Acute Code(s): D3A.8 - OTHER BENIGN NEUROENDOCRINE TUMORS SNOMED Code(s): 400074062 (5) Morbid obesity due to excess calories Current Visit: Yes Status: Acute Code(s): E66.01 - MORBID (SEVERE) OBESITY DUE TO EXCESS CALORIES SNOMED Code(s): 845764999 (6) Metastatic disease Current Visit: Yes Status: Acute Code(s): C79.9 - SECONDARY MALIGNANT NEOPLASM OF UNSPECIFIED SITE SNOMED Code(s): 712486478
[2019-06-03 14:59] VITALS: BP 143/90; PULSE 67; RESP 16; TEMP 98.2
== END 2019-06-03 16:00 | disposition home or self-care (01) | DRG 389 ==
LOC: EC 08:36 → 4SSUR 11:29
PROVIDERS: ADMIT Internal Medicine; ATTEND Internal Medicine
DX: K56.600 Partial intestinal obstruction, unspecified as to cause (principal); C7B.8 Other secondary neuroendocrine tumors; K86.81 Exocrine pancreatic insufficiency; K52.9 Noninfective gastroenteritis and colitis, unspecified; E11.65 Type 2 diabetes mellitus with hyperglycemia; I10 Essential (primary) hypertension; M19.90 Unspecified osteoarthritis, unspecified site; E66.01 Morbid (severe) obesity due to excess calories; Z68.35 Body mass index [BMI] 35.0-35.9, adult; Z79.4 Long term (current) use of insulin; Z79.899 Other long term (current) drug therapy; Z85.07 Personal history of malignant neoplasm of pancreas; Z90.411 Acquired partial absence of pancreas; Z90.49 Acquired absence of other specified parts of digestive tract; Z87.891 Personal history of nicotine dependence; Z98.891 History of uterine scar from previous surgery; Z98.890 Other specified postprocedural states; Z88.0 Allergy status to penicillin; Z88.2 Allergy status to sulfonamides; Z91.041 Radiographic dye allergy status
CPT/HCPCS: 36415; 71275; 74019; 74177; 80053; 81001; 82150; 82550; 83690; 84484; 85025; 85610; 85730; 93005; 96361; 96374; 99285

== ENCOUNTER 2020-02-15 12:10 | Inpatient (IN) | payer OTHER, BC ==
[2020-02-15] MEDS ORDERED: ACETAMINOPHEN TAB 500 MG TAB PO STA (12:52)
--- NOTE | 2020-02-15 13:00 | ED ---
General Adult HPI - General Chief complaint: Fever Stated complaint: cancer pt, fever Time Seen by Provider: 02/15/20 12:30 Source: patient, RN notes reviewed Mode of arrival: ambulatory Limitations: no limitations - History of Present Illness Initial comments: Patient is a pleasant 49-year-old female presenting to the emergency department with complaints of fever. Onset of symptoms was this morning. Temperature was 101 and then when she rechecked it was higher. Patient complains of fatigue and myalgias and chills. No abdominal pain. No nausea vomiting. No dysuria or urinary symptoms. No cough. Patient does take oral chemotherapy - Related Data Home Medications Medication Instructions Recorded Confirmed lisinopriL [Zestril] 20 mg PO DAILY 12/29/13 02/15/20 Afinitor 10mg 10 mg PO DIRECTED 06/02/19 02/15/20 Calcium Carbonate [Calcium] 600 mg PO DAILY 06/02/19 02/15/20 Cholecalciferol [Vitamin D3 (25 1,000 unit PO DAILY 06/02/19 02/15/20 Mcg = 1000 Iu)] Ferrous Sulfate [Iron (65 MG 325 mg PO DAILY 06/02/19 02/15/20 Elemental)] Insulin Glargine,Hum.rec.anlog 10 unit SQ HS 06/02/19 02/15/20 [Lantus Solostar] Octreotide Lar [SandoSTATIN LAR] 30 mg IM Q30D 06/02/19 02/15/20 Ascorbic Acid [Vitamin C] 500 mg PO DAILY 02/15/20 02/15/20 Insulin Lispro [humaLOG Kwikpen] See Protocol SQ AC-TID 02/15/20 02/15/20 Levofloxacin [Levaquin] 500 mg PO DAILY 02/15/20 02/15/20 [place]-3 Fatty Acids [[place]-3] 1,000 mg PO DAILY 02/15/20 02/15/20 Turmeric Root Extract [Turmeric] 500 mg PO DAILY 02/15/20 02/15/20 Ubidecarenone [Co Q-10] 100 mg PO DAILY 02/15/20 02/15/20 metFORMIN HCL [Glucophage] 1,000 mg PO W/SUPPER 02/15/20 02/15/20 metFORMIN HCL [Glucophage] 500 mg PO DAILY 02/15/20 02/15/20 Allergies Allergy/AdvReac Type Severity Reaction Status Date / Time Penicillins Allergy Unknown Verified 02/15/20 13:45 Childhood Sulfa (Sulfonamide Allergy Rash/Hives Verified 02/15/20 13:45 Antibiotics) GANOLINIUM CONTRAST Allergy Unknown Uncoded 02/15/20 12:30 Review of Systems ROS Statement: Those systems with pertinent positive or pertinent negative responses have been documented in the HPI. ROS Other: All systems not noted in ROS Statement are negative. Constitutional: Reports: fever, chills Eyes: Denies: eye pain ENT: Denies: ear pain Respiratory: Denies: cough, dyspnea Cardiovascular: Denies: chest pain Endocrine: Reports: fatigue Gastrointestinal: Denies: abdominal pain, nausea, vomiting, diarrhea, constipation Genitourinary: Denies: dysuria, frequency, hematuria Musculoskeletal: Denies: back pain Skin: Denies: rash Neurological: Denies: weakness Past Medical History Past Medical History: Cancer, Chest Pain / Angina, Diabetes Mellitus, Hypertension Additional Past Medical History / Comment(s): hx neuroendocrine tumor, liver lesions, heart murmur History of Any Multi-Drug Resistant Organisms: None Reported Past Surgical History: Section, Orthopedic Surgery Additional Past Surgical History / Comment(s): whipple and tumor removed. orthopedic surgery john feet, c-sect x 1 Past Anesthesia/Blood Transfusion Reactions: No Reported Reaction Past Psychological History: No Psychological Hx Reported Smoking Status: Never smoker Past Alcohol Use History: Rare Past Drug Use History: None Reported - Past Family History Mother Family Medical History: No Reported History General Exam Limitations: no limitations General appearance: alert, in no apparent distress Head exam: Present: normocephalic Eye exam: Present: normal appearance ENT exam: Present: normal oropharynx Neck exam: Present: normal inspection. Absent: tenderness, meningismus Respiratory exam: Present: normal lung sounds bilaterally. Absent: respiratory distress Cardiovascular Exam: Present: tachycardia GI/Abdominal exam: Present: soft. Absent: tenderness Extremities exam: Present: normal inspection. Absent: pedal edema, calf tenderness Neurological exam: Present: alert Psychiatric exam: Present: normal affect, normal mood Skin exam: Present: normal color Course Vital Signs 02/15/20 02/15/20 02/15/20 12:26 12:42 14:16 Temperature 104.5 F H 103.2 F H 102.2 F H Pulse Rate 117 H 109 H Respiratory 18 17 Rate Blood Pressure 157/88 147/95 O2 Sat by Pulse 98 98 Oximetry - Reevaluation(s) Reevaluation #1: 02/15/20 14:24 Patient does meet sepsis criteria diagnosed at 1420. Blood culture and lactic acid ordered. IV antibiotics will be started. Medical Decision Making - Medical Decision Making Of note patient was positive for Coronavirus in July. Patient did have antibody testing done 1 month ago which was still positive. Case was discussed in detail with practitioner Hillary Antonio, who would like patient to be admitted for IV antibiotics. Case also discussed with Dr. Mack who will admit For Dr. Keller. - Lab Data Result diagrams: 02/15/20 13:00 02/15/20 13:00 Lab Results 02/15/20 02/15/20 02/15/20 Range/Units 13:00 13:00 13:00 WBC 6.5 (3.8-10.6) k/uL RBC 4.23 (3.80-5.40) m/uL Hgb 10.6 L (11.4-16.0) gm/dL Hct 32.1 L (34.0-46.0) % MCV 75.8 L (80.0-100.0) fL MCH 25.0 (25.0-35.0) pg MCHC 33.0 (31.0-37.0) g/dL RDW 15.1 (11.5-15.5) % Plt Count 186 (150-450) k/uL Neutrophils % 86 % Lymphocytes % 6 % Monocytes % 4 % Eosinophils % 4 % Basophils % 0 % Neutrophils # 5.6 (1.3-7.7) k/uL Lymphocytes # 0.4 L (1.0-4.8) k/uL Monocytes # 0.2 (0-1.0) k/uL Eosinophils # 0.3 (0-0.7) k/uL Basophils # 0.0 (0-0.2) k/uL Microcytosis Slight PT 9.7 (9.0-12.0) sec INR 0.9 (<1.2) APTT 23.7 (22.0-30.0) sec Sodium (137-145) mmol/L Potassium (3.5-5.1) mmol/L Chloride (98-107) mmol/L Carbon Dioxide (22-30) mmol/L Anion Gap mmol/L BUN (7-17) mg/dL Creatinine (0.52-1.04) mg/dL Est GFR (CKD-EPI)AfAm (>60 ml/min/1.73 sqM) Est GFR (CKD-EPI)NonAf (>60 ml/min/1.73 sqM) Glucose (74-99) mg/dL Plasma Lactic Acid Chavez (0.7-2.0) mmol/L Calcium (8.4-10.2) mg/dL Total Bilirubin (0.2-1.3) mg/dL AST (14-36) U/L ALT (4-34) U/L Alkaline Phosphatase (38-126) U/L Total Protein (6.3-8.2) g/dL Albumin (3.5-5.0) g/dL Urine Color Yellow Urine Appearance Clear (Clear) Urine pH 6.5 (5.0-8.0) Ur Specific [place] 1.014 (1.001-1.035) Urine Protein 1+ H (Negative) Urine Glucose (UA) Negative (Negative) Urine Ketones Negative (Negative) Urine Blood Large H (Negative) Urine Nitrite Negative (Negative) Urine Bilirubin Negative (Negative) Urine Urobilinogen <2.0 (<2.0) mg/dL Ur Leukocyte Esterase Moderate H (Negative) Urine RBC 54 H (0-5) /hpf Urine WBC 12 H (0-5) /hpf Ur Squamous Epith Cells 1 (0-4) /hpf Hyaline Casts 3 H (0-2) /lpf Urine Mucus Rare H (None) /hpf 02/15/20 02/15/20 Range/Units 13:00 13:00 WBC (3.8-10.6) k/uL RBC (3.80-5.40) m/uL Hgb (11.4-16.0) gm/dL Hct (34.0-46.0) % MCV (80.0-100.0) fL MCH (25.0-35.0) pg MCHC (31.0-37.0) g/dL RDW (11.5-15.5) % Plt Count (150-450) k/uL Neutrophils % % Lymphocytes % % Monocytes % % Eosinophils % % Basophils % % Neutrophils # (1.3-7.7) k/uL Lymphocytes # (1.0-4.8) k/uL Monocytes # (0-1.0) k/uL Eosinophils # (0-0.7) k/uL Basophils # (0-0.2) k/uL Microcytosis PT (9.0-12.0) sec INR (<1.2) APTT (22.0-30.0) sec Sodium 135 L (137-145) mmol/L Potassium 4.5 (3.5-5.1) mmol/L Chloride 100 (98-107) mmol/L Carbon Dioxide 26 (22-30) mmol/L Anion Gap 9 mmol/L BUN 17 (7-17) mg/dL Creatinine 1.00 (0.52-1.04) mg/dL Est GFR (CKD-EPI)AfAm 78 (>60 ml/min/1.73 sqM) Est GFR (CKD-EPI)NonAf 68 (>60 ml/min/1.73 sqM) Glucose 147 H (74-99) mg/dL Plasma Lactic Acid Chavez 1.5 (0.7-2.0) mmol/L Calcium 9.3 (8.4-10.2) mg/dL Total Bilirubin 0.7 (0.2-1.3) mg/dL AST 48 H (14-36) U/L ALT 44 H (4-34) U/L Alkaline Phosphatase 79 (38-126) U/L Total Protein 7.4 (6.3-8.2) g/dL Albumin 4.1 (3.5-5.0) g/dL Urine Color Urine Appearance (Clear) Urine pH (5.0-8.0) Ur Specific [place] (1.001-1.035) Urine Protein (Negative) Urine Glucose (UA) (Negative) Urine Ketones (Negative) Urine Blood (Negative) Urine Nitrite (Negative) Urine Bilirubin (Negative) Urine Urobilinogen (<2.0) mg/dL Ur Leukocyte Esterase (Negative) Urine RBC (0-5) /hpf Urine WBC (0-5) /hpf Ur Squamous Epith Cells (0-4) /hpf Hyaline Casts (0-2) /lpf Urine Mucus (None) /hpf - Radiology Data Radiology results: image reviewed (Chest x-ray shows no acute process) Critical Care Time Critical Care Time: Yes Total Critical Care Time: 32 Disposition Clinical Impression: Neuroendocrine tumor of pancreas, Urinary tract infection, Sepsis Disposition: ADMITTED IP TO THIS HOSP Is patient prescribed a controlled substance at d/c from ED?: No Referrals: Esa Keller DO [Primary Care Provider] - 1-2 days Decision Time: 14:26
[2020-02-15 13:14] LABS: Basophils % (A) 0 %; Eosinophils # (A) 0.3 k/uL (0-0.7); Eosinophils % (A) 4 %; HCT 32.1 % (34.0-46.0); HGB 10.6 gm/dL (11.4-16.0); Lymphocytes # (A) 0.4 k/uL (1.0-4.8); Lymphocytes % (A) 6 %; MCV 75.8 fL (80.0-100.0); Mean Platelet Volume 7.2; Microcytosis Slight; Monocytes # (A) 0.2 k/uL (0-1.0); Monocytes % (A) 4 %; Neutrophils # (A) 5.6 k/uL (1.3-7.7); Neutrophils % (A) 86 %; Platelet Count 186 k/uL (150-450); RBC 4.23 m/uL (3.80-5.40); RDW 15.1 % (11.5-15.5); WBC 6.5 k/uL (3.8-10.6)
[2020-02-15 13:23] LABS: Albumin 4.1 g/dL (3.5-5.0); Calcium 9.3 mg/dL (8.4-10.2); Potassium 4.5 mmol/L (3.5-5.1); Total Bilirubin 0.7 mg/dL (0.2-1.3); Total Protein 7.4 g/dL (6.3-8.2)
[2020-02-15 13:26] LABS: Appearance,Urine Clear (Clear); Bilirubin,Urine Negative (Negative); Blood,Urine Large (Negative); Color,Urine Yellow; Glucose,Urine (UA) Negative (Negative); Hyaline Casts,Urine 3 /lpf (0-2); Ketones,Urine Negative (Negative); Leukocyte Esterase,Urine Moderate (Negative); Mucus,Urine Rare /hpf; Nitrite,Urine Negative (Negative); PH, Urine 6.5 (5.0-8.0); Protein,Urine 1+ (Negative); RBC,Urine 54 /hpf (0-5); Specific Gravity,Urine 1.014 (1.001-1.035); Squamous Epithelial Cell,Urine 1 /hpf (0-4); Urobilinogen,Urine <2.0 mg/dL (<2.0); WBC,Urine 12 /hpf (0-5)
[2020-02-15 13:30] LABS: INR 0.9 (<1.2); Partial Thromboplastin Time 23.7 sec (22.0-30.0); Prothrombin Time 9.7 sec (9.0-12.0)
[2020-02-15] MEDS: SODIUM CHLORIDE 0.9% 1,000 ML IV SCH ×2 (13:31→21:45)
--- NOTE | 2020-02-15 13:42 | XR ---
EXAMINATION TYPE: XR chest 2V DATE OF EXAM: 02/15/2020 COMPARISON: Chest x-ray May 29, 2019. CTA chest June 02, 2019 HISTORY: Recent cold with no fever. TECHNIQUE: Frontal and lateral views of the chest are obtained. FINDINGS: There is no suspicious new focal air space opacity, pleural effusion, or pneumothorax seen . The cardiac silhouette size remains within normal limits. The osseous structures are intact. IMPRESSION: No suspicious new acute pulmonary process.
[2020-02-15] MEDS ORDERED: ACETAMINOPHEN TAB 325 MG TAB PO PRN (14:26)
[2020-02-15] MEDS ORDERED: NALOXONE 0.4 MG/ML 1 ML VIAL IV PRN (14:26)
[2020-02-15] MEDS ORDERED: LEVOFLOXACIN 750MG-D5W PMX 750 MG in DEXTROSE/WATER 1 150ML.BAG IVPB STA (14:26)
[2020-02-15 21:03] LABS: Glucose,Whole Blood 180 mg/dL (75-99)
[2020-02-15] MEDS: INSULIN ASPART (NovoLOG) 100 UNIT/ML VIAL SQ SCH ×2 (21:38→21:44)
[2020-02-15] MEDS: INSULIN DETEMIR (LEVEMIR) 100 UNIT/ML SYR SQ SCH (21:45)
--- NOTE | 2020-02-15 21:52 | P.HPIM ---
History of Present Illness H&P Date: 02/15/20 Chief Complaint: fever or chills History of presenting complaint: This is a pleasant 49-year-old patient of Dr. Keller. Diagnosed with pancreatic cancer and about 7 a half years ago. During a routine ultrasound. Underwent Whipple's procedure. About 2 years ago done of metastatic systems the liver and/or vertebra. Patient is on a maintenance chemotherapy pill doing this well with the same. One day ago patient started out with high fevers and chills at home. No respiratory symptoms. It may be noted that patient's children were positive for: September of this year with antibodies. Also January. Patient had no obvious urine symptoms. Patient UA did come back positive the ER started on Levaquin. Since then patient's feeling better. Previously feeling t ired and rundown. Review of systems: GEN.: Fever tired EYES: None HEENT: None NECK: None RESPIRATORY: None CARDIOVASCULAR: None GASTROINTESTINAL: None GENITOURINARY: None MUSCULOSKELETAL: None LYMPHATICS: None HEMATOLOGICAL: None PSYCHIATRY: None NEUROLOGICAL: None. Past medical history to include: Diabetes mellitus type 2, hypertension, or endocrine tumor, liver lesions, pancreatic cancer metastatic systems the liver and lower vertebra, plantar fasciitis Social history: Patient smoked for about 10-12 years, half a pack a day stopped her age of 27. Alcohol rarely. Family history: Reviewed, noncontributory to presentation Physical examination: VITAL SIGNS: 102.2, 109, 17, 147/95, 98% room air GENERAL: BMI 32.9, laying in bed, comfortable. EYES: Pupils equal. Conjunctiva normal. HEENT: External appearance of nose and ears normal, oral cavity grossly normal. NECK: JVD not raised; masses not palpable. HEART: First and second heart sounds are normal; no edema. LUNGS: Respiratory rate normal; clear to auscultation. ABDOMEN: Soft, nontender, liver spleen not palpable, no masses palpable. PSYCH: Alert and oriented x3; mood and affect normal. NEUROLOGICAL: Cranial nerves grossly intact; no facial asymmetry, power and sensation grossly intact. LYMPHATICS: No lymph nodes palpable in the axilla and neck INVESTIGATIONS, reviewed in the clinical context: White count 6.5 hemoglobin 10.6 platelets 186 potassium 4.5 creatinine 1.0 UA positive for leukoesterase, WBC Chest x-ray film personally reviewed by rupert Assessment: -Acute UTI with cystitis, in a patient who is immunosuppressed. Only 1 day history of fever and chills. With a positive UA. Clinical symptomatology more compatible with UTI then with COVID. -Sepsis from UTI -Pancreatic cancer treated with Whipple's surgery several half years ago but now with recurrence to the liver and lower vertebra. Currently on chemotherapeutic pills that she takes for 3 weeks on and 1 week off -Diabetes mellitus type 2 -Essential hypertension -Obesity BMI 32.9 Plan: Home medications be continued. Accu-Cheks will be followed with sliding scale insulin. Patient be continued on Levaquin. IV fluids. Blood cultures are pending. COVID 19 this tested but clinically seems to be unlikely care was di scussed with the patient. Questions answered. 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 orthopedic surgery john feet, c-sect x 1 Past Anesthesia/Blood Transfusion Reactions: No Reported Reaction Past Psychological History: No Psychological Hx Reported Smoking Status: Former smoker Past Alcohol Use History: Rare Additional Past Alcohol Use History / Comment(s): smoked 10-12 years 1/2 ppd quit age 27 Past Drug Use History: None Reported - Past Family History Mother Family Medical History: No Reported History Medications and Allergies Home Medications Medication Instructions Recorded Confirmed Type lisinopriL [Zestril] 20 mg PO DAILY 12/29/13 02/15/20 History Afinitor 10mg 10 mg PO DIRECTED 06/02/19 02/15/20 History Calcium Carbonate [Calcium] 600 mg PO DAILY 06/02/19 02/15/20 History Cholecalciferol [Vitamin D3 (25 1,000 unit PO DAILY 06/02/19 02/15/20 History Mcg = 1000 Iu)] Ferrous Sulfate [Iron (65 MG 325 mg PO DAILY 06/02/19 02/15/20 History Elemental)] Insulin Glargine,Hum.rec.anlog 10 unit SQ HS 06/02/19 02/15/20 History [Lantus Solostar] Octreotide Lar [SandoSTATIN LAR] 30 mg IM Q30D 06/02/19 02/15/20 History Ascorbic Acid [Vitamin C] 500 mg PO DAILY 02/15/20 02/15/20 History Insulin Lispro [humaLOG Kwikpen] See Protocol SQ AC-TID 02/15/20 02/15/20 History Levofloxacin [Levaquin] 500 mg PO DAILY 02/15/20 02/15/20 History [place]-3 Fatty Acids [[place]-3] 1,000 mg PO DAILY 02/15/20 02/15/20 History Turmeric Root Extract [Turmeric] 500 mg PO DAILY 02/15/20 02/15/20 History Ubidecarenone [Co Q-10] 100 mg PO DAILY 02/15/20 02/15/20 History metFORMIN HCL [Glucophage] 1,000 mg PO W/SUPPER 02/15/20 02/15/20 History metFORMIN HCL [Glucophage] 500 mg PO DAILY 02/15/20 02/15/20 History Allergies Allergy/AdvReac Type Severity Reaction Status Date / Time Penicillins Allergy Unknown Verified 02/15/20 13:45 Childhood Sulfa (Sulfonamide Allergy Rash/Hives Verified 02/15/20 13:45 Antibiotics) GANOLINIUM CONTRAST Allergy Unknown Uncoded 02/15/20 12:30 Physical Exam Vitals: Vital Signs Temp Pulse Pulse Resp BP BP Pulse Ox 02/15/20 16:05 99.1 F 103 H 18 123/80 97 02/15/20 15:55 102 H 18 141/85 97 02/15/20 15:08 100.2 F H 02/15/20 14:16 102.2 F H 109 H 17 147/95 98 02/15/20 12:42 103.2 F H 02/15/20 12:26 104.5 F H 117 H 18 157/88 98 Intake and Output 02/15/20 02/15/20 02/15/20 06:59 14:59 22:59 Other: Weight 95.254 kg 95.254 kg Results CBC & Chem 7: 02/15/20 13:00 02/15/20 13:00 Labs: Abnormal Lab Results - Last 24 Hours (Table) 02/15/20 02/15/20 02/15/20 Range/Units 13:00 13:00 13:00 Hgb 10.6 L (11.4-16.0) gm/dL Hct 32.1 L (34.0-46.0) % MCV 75.8 L (80.0-100.0) fL Lymphocytes # 0.4 L (1.0-4.8) k/uL Sodium 135 L (137-145) mmol/L Glucose 147 H (74-99) mg/dL POC Glucose (mg/dL) (75-99) mg/dL AST 48 H (14-36) U/L ALT 44 H (4-34) U/L Urine Protein 1+ H (Negative) Urine Blood Large H (Negative) Ur Leukocyte Esterase Moderate H (Negative) Urine RBC 54 H (0-5) /hpf Urine WBC 12 H (0-5) /hpf Hyaline Casts 3 H (0-2) /lpf Urine Mucus Rare H (None) /hpf 02/15/20 Range/Units 20:57 Hgb (11.4-16.0) gm/dL Hct (34.0-46.0) % MCV (80.0-100.0) fL Lymphocytes # (1.0-4.8) k/uL Sodium (137-145) mmol/L Glucose (74-99) mg/dL POC Glucose (mg/dL) 180 H (75-99) mg/dL AST (14-36) U/L ALT (4-34) U/L Urine Protein (Negative) Urine Blood (Negative) Ur Leukocyte Esterase (Negative) Urine RBC (0-5) /hpf Urine WBC (0-5) /hpf Hyaline Casts (0-2) /lpf Urine Mucus (None) /hpf Microbiology - Last 24 Hours (Table) 02/15/20 13:00 Urine Culture - Preliminary Urine,Voided
[2020-02-15] MEDS: ENOXAPARIN 40 MG/0.4 ML SYRINGE SQ SCH (22:33)
[2020-02-16] MEDS: SODIUM CHLORIDE 0.9% 1,000 ML IV SCH ×3 (04:41→20:25)
[2020-02-16 06:12] LABS: Basophils % (A) 0 %; Eosinophils # (A) 0.1 k/uL (0-0.7); Eosinophils % (A) 2 %; HCT 28.3 % (34.0-46.0); HGB 9.5 gm/dL (11.4-16.0); Lymphocytes # (A) 0.7 k/uL (1.0-4.8); Lymphocytes % (A) 17 %; MCH 25.5 pg (25.0-35.0); MCHC 33.4 g/dL (31.0-37.0); MCV 76.3 fL (80.0-100.0); Mean Platelet Volume 7.1; Microcytosis Slight; Monocytes # (A) 0.3 k/uL (0-1.0); Monocytes % (A) 7 %; Neutrophils % (A) 73 %; Platelet Count 146 k/uL (150-450); RBC 3.71 m/uL (3.80-5.40); RDW 15.2 % (11.5-15.5); WBC 4.1 k/uL (3.8-10.6)
[2020-02-16 07:01] LABS: Glucose,Whole Blood 149 mg/dL (75-99)
[2020-02-16] MEDS: FERROUS SULFATE 325 MG TAB PO SCH (07:19)
[2020-02-16] MEDS: ASCORBIC ACID 500 MG TAB PO SCH (07:19)
[2020-02-16] MEDS: CHOLECALCIFEROL 1,000 UNIT TAB PO SCH (07:19)
[2020-02-16] MEDS: CALCIUM CARBONATE 500 MG CHEWABLE PO SCH (07:20)
[2020-02-16] MEDS: INSULIN ASPART (NovoLOG) 100 UNIT/ML VIAL SQ SCH ×8 (07:20→20:34)
[2020-02-16] MEDS: metFORMIN 500 MG TAB PO SCH ×2 (07:20→17:22)
[2020-02-16] MEDS: ENOXAPARIN 40 MG/0.4 ML SYRINGE SQ SCH (07:22)
[2020-02-16] MEDS: lisinopriL 20 MG TAB PO SCH (07:25)
[2020-02-16 10:17] LABS: African American GFR (CKD) 88.2 (60.0-200.0); Albumin 3.6 g/dL (3.80-4.90); Albumin/Globulin Ratio 1.71 (1.60-3.17); Anion Gap 8.7 mmol/L (4.00-12.00); BUN/Creat Ratio 16.67 Ratio (12.00-20.00); Calcium 8.9 mg/dL (8.7-10.3); Carbon Dioxide 26.3 mmol/L (21.6-31.8); Globulin 2.1 g/dL (1.6-3.3); Non-African American GFR(CKD) 76.1 (60.0-200.0); Potassium 4.1 mmol/L (3.5-5.5); Total Bilirubin 0.5 mg/dL (0.3-1.2); Total Protein 5.7 g/dL (6.2-8.2)
[2020-02-16 11:47] LABS: Reticulocyte % 2.7 % (0.5-2.0)
[2020-02-16 11:58] LABS: Glucose,Whole Blood 123 mg/dL (75-99)
--- NOTE | 2020-02-16 15:33 | P.CONS ---
History of Present Illness - Reason for Consult Consult date: 02/16/20 Neuroendocrine Pancreatic Cancer Requesting physician: Conrad Hanley - Chief Complaint Fever on Chemo - History of Present Illness Trice is a patient who is well known to our practice for treatment of underlying metastatic pancreatic neuroendocrine. She continues on afinitor and sandostatin since December of 2018 with well controlled disease. In september if this year she did have diagnosis of COVID and antibodies were present following active infection. She presented to emergency with mid-high back pain, Fever T- Max 104, and hot and cold chills and sweats. She denies any recent known sick contacts. She is on her off week of afinitor, which is now on hold with concern of likely UTI/pyelonephritis. Antibiotics have been initiated and she has not had fever in past 12 hours, as well as feels much better overall. Review of Systems All systems: negative Constitutional: Reports as per HPI Past Medical History Past Medical History: Cancer, Chest Pain / Angina, Diabetes Mellitus, Hypertension Additional Past Medical History / Comment(s): hx neuroendocrine tumor, liver lesions, heart murmur, pancreatic cancer with metastasis to liver and lower vertebrae, plantar fascitis History of Any Multi-Drug Resistant Organisms: None Reported Past Surgical History: Section, Orthopedic Surgery Additional Past Surgical History / Comment(s): whipple and tumor removed. orthopedic surgery john feet, c-sect x 1 Past Anesthesia/Blood Transfusion Reactions: No Reported Reaction Past Psychological History: No Psychological Hx Reported Smoking Status: Former smoker Past Alcohol Use History: Rare Additional Past Alcohol Use History / Comment(s): smoked 10-12 years 1/2 ppd quit age 27 Past Drug Use History: None Reported - Past Family History Mother Family Medical History: No Reported History Medications and Allergies Home Medications Medication Instructions Recorded Confirmed Type lisinopriL [Zestril] 20 mg PO DAILY 12/29/13 02/15/20 History Afinitor 10mg 10 mg PO DIRECTED 06/02/19 02/15/20 History Calcium Carbonate [Calcium] 600 mg PO DAILY 06/02/19 02/15/20 History Cholecalciferol [Vitamin D3 (25 1,000 unit PO DAILY 06/02/19 02/15/20 History Mcg = 1000 Iu)] Ferrous Sulfate [Iron (65 MG 325 mg PO DAILY 06/02/19 02/15/20 History Elemental)] Insulin Glargine,Hum.rec.anlog 10 unit SQ HS 06/02/19 02/15/20 History [Lantus Solostar] Octreotide Lar [SandoSTATIN LAR] 30 mg IM Q30D 06/02/19 02/15/20 History Ascorbic Acid [Vitamin C] 500 mg PO DAILY 02/15/20 02/15/20 History Insulin Lispro [humaLOG Kwikpen] See Protocol SQ AC-TID 02/15/20 02/15/20 History Levofloxacin [Levaquin] 500 mg PO DAILY 02/15/20 02/15/20 History [place]-3 Fatty Acids [[place]-3] 1,000 mg PO DAILY 02/15/20 02/15/20 History Turmeric Root Extract [Turmeric] 500 mg PO DAILY 02/15/20 02/15/20 History Ubidecarenone [Co Q-10] 100 mg PO DAILY 02/15/20 02/15/20 History metFORMIN HCL [Glucophage] 1,000 mg PO W/SUPPER 02/15/20 02/15/20 History metFORMIN HCL [Glucophage] 500 mg PO DAILY 02/15/20 02/15/20 History Allergies Allergy/AdvReac Type Severity Reaction Status Date / Time Penicillins Allergy Unknown Verified 02/15/20 13:45 Childhood Sulfa (Sulfonamide Allergy Rash/Hives Verified 02/15/20 13:45 Antibiotics) GANOLINIUM CONTRAST Allergy Unknown Uncoded 02/15/20 12:30 Physical Exam Vitals: Vital Signs Temp Pulse Pulse Resp BP BP Pulse Ox 02/16/20 07:15 16 02/16/20 06:56 98.4 F 75 16 143/87 97 02/16/20 03:15 20 02/16/20 01:45 99.1 F 83 20 138/88 97 02/16/20 00:10 20 02/15/20 20:00 98.5 F 87 20 139/81 99 02/15/20 19:40 20 02/15/20 16:05 99.1 F 103 H 18 123/80 97 02/15/20 15:55 102 H 18 141/85 97 02/15/20 15:08 100.2 F H 02/15/20 14:16 102.2 F H 109 H 17 147/95 98 02/15/20 12:42 103.2 F H 02/15/20 12:26 104.5 F H 117 H 18 157/88 98 Intake and Output 02/15/20 02/16/20 02/16/20 22:59 06:59 14:59 Intake Total 1630 Balance 1630 Intake: Intake, IV Titration 1530 Amount Levofloxacin 750Mg-D5w 100 Pmx 750 mg In Dextrose/ Water 1 150ml.bag @ 100 mls/hr IVPB Q24H [facility] Rx#: [id number] Sodium Chloride 0.9% 1, 1430 000 ml @ 130 mls/hr IV . Q7H42M [facility] Rx#:[id number] Oral 100 Other: Voiding Method Toilet Toilet # Voids 2 1 Weight 95.254 kg - Constitutional General appearance: cooperative, no acute distress - EENT Eyes: EOMI, PERRLA ENT: NA/AT, normal oropharynx - Neck Neck: normal ROM - Respiratory Respiratory: bilateral: CTA - Cardiovascular Rhythm: regular Heart sounds: normal: S1, S2 - Gastrointestinal General gastrointestinal: distended, soft - Integumentary Integumentary: pale - Neurologic Neurologic: CNII-XII intact - Musculoskeletal Musculoskeletal: generalized weakness - Psychiatric Psychiatric: A&O x's 3, appropriate affect, intact judgment & insight Results CBC & Chem 7: 02/16/20 05:49 02/16/20 05:49 Labs: Abnormal Lab Results - Last 24 Hours (Table) 02/15/20 02/15/20 02/15/20 Range/Units 13:00 13:00 13:00 RBC (3.80-5.40) m/uL Hgb 10.6 L (11.4-16.0) gm/dL Hct 32.1 L (34.0-46.0) % MCV 75.8 L (80.0-100.0) fL Plt Count (150-450) k/uL Lymphocytes # 0.4 L (1.0-4.8) k/uL Sodium 135 L (137-145) mmol/L Glucose 147 H (74-99) mg/dL POC Glucose (mg/dL) (75-99) mg/dL AST 48 H (14-36) U/L ALT 44 H (4-34) U/L Total Protein (6.2-8.2) g/dL Albumin (3.80-4.90) g/dL Urine Protein 1+ H (Negative) Urine Blood Large H (Negative) Ur Leukocyte Esterase Moderate H (Negative) Urine RBC 54 H (0-5) /hpf Urine WBC 12 H (0-5) /hpf Hyaline Casts 3 H (0-2) /lpf Urine Mucus Rare H (None) /hpf 02/15/20 02/16/20 02/16/20 Range/Units 20:57 05:49 05:49 RBC 3.71 L (3.80-5.40) m/uL Hgb 9.5 L (11.4-16.0) gm/dL Hct 28.3 L (34.0-46.0) % MCV 76.3 L (80.0-100.0) fL Plt Count 146 L (150-450) k/uL Lymphocytes # 0.7 L (1.0-4.8) k/uL Sodium (137-145) mmol/L Glucose 139 H (74-99) mg/dL POC Glucose (mg/dL) 180 H (75-99) mg/dL AST 36 H (14-36) U/L ALT (4-34) U/L Total Protein 5.7 L (6.2-8.2) g/dL Albumin 3.60 L (3.80-4.90) g/dL Urine Protein (Negative) Urine Blood (Negative) Ur Leukocyte Esterase (Negative) Urine RBC (0-5) /hpf Urine WBC (0-5) /hpf Hyaline Casts (0-2) /lpf Urine Mucus (None) /hpf 02/16/20 Range/Units 06:57 RBC (3.80-5.40) m/uL Hgb (11.4-16.0) gm/dL Hct (34.0-46.0) % MCV (80.0-100.0) fL Plt Count (150-450) k/uL Lymphocytes # (1.0-4.8) k/uL Sodium (137-145) mmol/L Glucose (74-99) mg/dL POC Glucose (mg/dL) 149 H (75-99) mg/dL AST (14-36) U/L ALT (4-34) U/L Total Protein (6.2-8.2) g/dL Albumin (3.80-4.90) g/dL Urine Protein (Negative) Urine Blood (Negative) Ur Leukocyte Esterase (Negative) Urine RBC (0-5) /hpf Urine WBC (0-5) /hpf Hyaline Casts (0-2) /lpf Urine Mucus (None) /hpf Microbiology - Last 24 Hours (Table) 02/15/20 13:00 Urine Culture - Preliminary Urine,Voided Chest x-ray: report reviewed Assessment and Plan (1) Neuroendocrine tumor of pancreas Current Visit: Yes Status: Acute Code(s): D3A.8 - OTHER BENIGN NEUROENDOCRINE TUMORS SNOMED Code(s): 393108431 (2) Sepsis Current Visit: Yes Status: Acute Code(s): A41.9 - SEPSIS, UNSPECIFIED ORGANISM SNOMED Code(s): 04558831 (3) Urinary tract infection Current Visit: Yes Status: Acute Code(s): N39.0 - URINARY TRACT INFECTION, SITE NOT SPECIFIED SNOMED Code(s): 58817638 (4) Abdominal pain Current Visit: No Status: Acute Code(s): R10.9 - UNSPECIFIED ABDOMINAL PAIN SNOMED Code(s): 70142925 Plan: SIRS: 3/: - Probable UTI - Awaiting Cultures - Febrile T max 104 - Blood Cultures Pending Metastatic Neuroendocrine Tumor of pancreas: - Receives Sandostatin and Afinitor with well controlled disease since December 2018 - Hold Afinitor right now with concern of infectious process - Chromagranin level Microcytic Anemia: - Lower than her usual baseline - Anemia Work-up initiated Plan: - Continue to await cultures and continue antibipotic - Hold Afinitor - Plan to follow-up 1-2 weeks after discharge for ok to restart afinitor Physician Attest: I have completed the full history and physicial and agree with above dictation, dictated as a scribe.
[2020-02-16] MEDS ORDERED: LEVOFLOXACIN 750MG-D5W PMX 750 MG in DEXTROSE/WATER 1 150ML.BAG IVPB SCH (16:00)
[2020-02-16 17:06] LABS: Glucose,Whole Blood 216 mg/dL (75-99)
[2020-02-16 17:31] LABS: % Iron Saturation 162.6 (12.00-45.00); Ferritin 569.7 ng/mL (10.0-291.0); Folate, Serum 10.4 ng/mL
--- NOTE | 2020-02-16 18:38 | P.PN ---
Progress Note - Text Progress Note Date: 02/16/20 Chief Complaint: fever or chills History of presenting complaint: This is a pleasant 49-year-old patient of Dr. Keller. Diagnosed with pancreatic cancer and about 7 a half years ago. During a routine ultrasound. Underwent Whipple's procedure. About 2 years ago done of metastatic systems the liver and/or vertebra. Patient is on a maintenance chemotherapy pill doing this well with the same. One day ago patient started out with high fevers and chills at home. No respiratory symptoms. It may be noted that patient's children were positive for: September of this year with antibodies. Also January. Patient had no obvious urine symptoms. Patient UA did come back positive the ER started on Levaquin. Since then patient's feeling better. Previously feeling tired and rundown. Admitted with UTI with cystitis causing sepsis and immunosuppressed patient. Started IV ceftriaxone. Today-feeling better. Fever coming down. T-max of 102.2 yesterday. Appetite improving. Review of systems: Was done for constitutional, cardiovascular, GI, pulmonary. relevant finding as above Active Medications Acetaminophen (Acetaminophen Tab 325 Mg Tab) 650 mg PO Q6HR PRN PRN Reason: Mild Pain or Fever > 100.5 Ascorbic Acid (Ascorbic Acid 500 Mg Tab) 500 mg PO DAILY [facility] Last Admin: 02/16/20 07:19 Dose: 500 mg Documented by: Calcium Carbonate/Glycine (Calcium Carbonate 500 Mg Chewable) 500 mg PO DAILY [facility] Last Admin: 02/16/20 07:20 Dose: 500 mg Documented by: Cholecalciferol (Cholecalciferol 1,000 Unit Tab) 1,000 unit PO DAILY [facility] Last Admin: 02/16/20 07:19 Dose: 1,000 unit Documented by: Enoxaparin Sodium (Enoxaparin 40 Mg/0.4 Ml Syringe) 40 mg SQ DAILY [facility] Last Admin: 02/16/20 07:22 Dose: 40 mg Documented by: Ferrous Sulfate (Ferrous Sulfate 325 Mg Tab) 325 mg PO DAILY [facility] Last Admin: 02/16/20 07:19 Dose: 325 mg Documented by: Sodium Chloride (Saline 0.9%) 1,000 mls @ 130 mls/hr IV .Q7H42M [facility] Last Admin: 02/16/20 14:13 Dose: Not Given Documented by: Ceftriaxone Sodium 1 gm/ (Sodium Chloride) 50 mls @ 100 mls/hr IVPB Q24HR [facility] Last Admin: 02/16/20 07:21 Dose: 100 mls/hr Documented by: Insulin Aspart (Insulin Aspart (Novolog) 100 Unit/Ml Vial) 0 unit SQ ACHS [facility]; Protocol Last Admin: 02/16/20 17:23 Dose: 3 unit Documented by: Insulin Aspart (Insulin Aspart (Novolog) 100 Unit/Ml Vial) 0 unit SQ ACHS [facility]; Protocol Last Admin: 02/16/20 17:23 Dose: Not Given Documented by: Insulin Detemir (Insulin Detemir (Levemir) 100 Unit/Ml Syr) 10 unit SQ HS [facility] Last Admin: 02/15/20 21:45 Dose: 10 unit Documented by: Lisinopril (Lisinopril 20 Mg Tab) 20 mg PO DAILY [facility] Last Admin: 02/16/20 07:25 Dose: Not Given Documented by: Metformin HCl (Metformin 500 Mg Tab) 500 mg PO DAILY [facility] Last Admin: 02/16/20 07:20 Dose: 500 mg Documented by: Metformin HCl (Metformin 500 Mg Tab) 1,000 mg PO W/SUPPER [facility] Last Admin: 02/16/20 17:22 Dose: 1,000 mg Documented by: Naloxone HCl (Naloxone 0.4 Mg/Ml 1 Ml Vial) 0.2 mg IV Q2M PRN PRN Reason: Opioid Reversal Physical examination: VITAL SIGNS: T-max 100.2, 75, 16, 143/87, 97% room air GENERAL: Sitting on bed, more comfortable EYES: Pupils equal. Conjunctiva normal. NECK: JVD not raised; masses not palpable. HEART: First and second heart sounds are normal; no edema. LUNGS: Respiratory rate normal; clear to auscultation. ABDOMEN: Soft, nontender, liver spleen not palpable, no masses palpable. PSYCH: Alert and oriented x3; mood and affect normal. INVESTIGATIONS, reviewed in the clinical context: White count 4.1 hemoglobin 9.5 platelets 146 potassium 4.1 creatinine 0.9 Urine culture negative final COVID 19 P/Cr-not detected Blood culture pending White count 6.5 hemoglobin 10.6 platelets 186 potassium 4.5 creatinine 1.0 UA positive for leukoesterase, WBC Chest x-ray film personally reviewed by me-clear Assessment: -Acute UTI with cystitis, in a patient who is immunosuppressed. Only 1 day history of fever and chills. With a positive UA. -Sepsis from UTI-improving -Pancreatic cancer treated with Whipple's surgery several half years ago but now with recurrence to the liver and lower vertebra. Currently on chemotherapeutic pills that she takes for 3 weeks on and 1 week off -Diabetes mellitus type 2 -Essential hypertension -Obesity BMI 32.9 Plan: Doing better. We'll give another 24 hours IV ceftriaxone. If remains well will Be discharged tomorrow. Continue IV fluids.
[2020-02-16 20:20] LABS: Glucose,Whole Blood 182 mg/dL (75-99)
[2020-02-16] MEDS: INSULIN DETEMIR (LEVEMIR) 100 UNIT/ML SYR SQ SCH (20:30)
[2020-02-16 23:42] LABS: Hemoglobin A1C 7.3 % (4.0-6.0)
[2020-02-17] MEDS: SODIUM CHLORIDE 0.9% 1,000 ML IV SCH ×2 (01:16→11:25)
[2020-02-17 07:09] LABS: Glucose,Whole Blood 118 mg/dL (75-99)
[2020-02-17] MEDS: INSULIN ASPART (NovoLOG) 100 UNIT/ML VIAL SQ SCH ×8 (07:32→21:17)
[2020-02-17] MEDS: ASCORBIC ACID 500 MG TAB PO SCH (07:38)
[2020-02-17] MEDS: CHOLECALCIFEROL 1,000 UNIT TAB PO SCH (07:38)
[2020-02-17] MEDS: FERROUS SULFATE 325 MG TAB PO SCH (07:38)
[2020-02-17] MEDS: metFORMIN 500 MG TAB PO SCH ×2 (07:38→17:26)
[2020-02-17] MEDS: CALCIUM CARBONATE 500 MG CHEWABLE PO SCH (07:39)
[2020-02-17] MEDS: lisinopriL 20 MG TAB PO SCH (07:39)
[2020-02-17] MEDS: ENOXAPARIN 40 MG/0.4 ML SYRINGE SQ SCH (07:39)
[2020-02-17 10:24] LABS: Basophils % (A) 0 %; Eosinophils # (A) 0.1 k/uL (0-0.7); Eosinophils % (A) 2 %; HCT 28.3 % (34.0-46.0); HGB 9.3 gm/dL (11.4-16.0); Lymphocytes # (A) 0.8 k/uL (1.0-4.8); Lymphocytes % (A) 19 %; MCH 25.4 pg (25.0-35.0); MCV 76.9 fL (80.0-100.0); Mean Platelet Volume 7.4; Microcytosis Slight; Monocytes # (A) 0.3 k/uL (0-1.0); Monocytes % (A) 6 %; Neutrophils # (A) 2.8 k/uL (1.3-7.7); Neutrophils % (A) 70 %; Platelet Count 164 k/uL (150-450); RBC 3.68 m/uL (3.80-5.40); RDW 15.4 % (11.5-15.5)
[2020-02-17 10:36] LABS: African American GFR (CKD) >90 (>60 ml/min/1.73 sqM); Anion Gap 7 mmol/L; Blood Urea Nitrogen 12 mg/dL (7-17); C Reactive Protein 72.7 mg/L (<10.0); Calcium 8.7 mg/dL (8.4-10.2); Carbon Dioxide 25 mmol/L (22-30); Chloride 107 mmol/L (98-107); Glucose 214 mg/dL (74-99); Non-African American GFR(CKD) 86 (>60 ml/min/1.73 sqM); Potassium 3.9 mmol/L (3.5-5.1); Sodium 139 mmol/L (137-145)
[2020-02-17 11:23] LABS: Glucose,Whole Blood 158 mg/dL (75-99)
[2020-02-17 16:33] LABS: Glucose,Whole Blood 168 mg/dL (75-99)
--- NOTE | 2020-02-17 20:01 | P.PN ---
Subjective from the record, per This is a pleasant 49-year-old patient of Dr. Keller. Diagnosed with pancreatic cancer and about 7 a half years ago. During a routine ultrasound. Underwent Whipple's procedure. About 2 years ago done of metastatic systems the liver and/or vertebra. Patient is on a maintenance chemotherapy pill doing this well with the same. One day ago patient started out with high fevers and chills at home. No respiratory symptoms. It may be noted that patient's children were positive for: September of this year with antibodies. Also January. Patient had no obvious urine symptoms. Patient UA did come back positive the ER started on Levaquin. Since then patient's feeling better. Previously feeling tired and rundown. Admitted with UTI with cystitis causing sepsis and immunosuppressed patient. Started IV ceftriaxone. Today-feeling better. Fever coming down. T-max of 102.2 yesterday. Appetite improving. Subjective 02/17/2020 This is a pleasant 49 years old female with multiple medical problems admitted with fever and some low back pain. Patient was admitted with a diagnosis of possible UTI with abnormal urine analysis, she was started on ceftriaxone, urine culture came back negative. However her fever subsided for more than 24 hours and her back pain has resolved, patient denies any other symptoms, no chest pain or dyspnea or headache or weakness or abdominal pain or nausea vomiting or cat nge in urine or bowel habits, no vomiting. She patient denies dysuria or change in frequency no suprapubic tenderness or pain. Blood culture has been negative. Also patient with history of pancreatic cancer status post Whipple procedure about 2 years ago, she has evidence of metastasis to the liver and the spine which is been stable chemotherapy. Hepatology Physician/oncologist evaluated the patient and held her afinitor and recommended that she follow up with her oncologist Hillary/Dr. Gallardo in 1-2 weeks to started again, it was held because of possible infection. Patient understands with this and she agrees. Objective - Vital Signs Vital signs: Vital Signs Temp 98.5 F 02/17/20 14:40 Pulse 62 02/17/20 14:40 Resp 17 02/17/20 14:40 BP 156/97 02/17/20 14:40 Pulse Ox 99 02/17/20 14:40 Intake & Output 02/17/20 02/17/2020 06:59 18:59 06:59 Intake Total 300 Balance 300 Intake: Oral 300 Other: Voiding Method Toilet Toilet # Voids 1 - Exam GENERAL: The patient is alert and oriented x3, not in any acute distress. Well developed, well nourished. HEENT: Pupils are round and equally reacting to light. EOMI. No scleral icterus. No conjunctival pallor. Normocephalic, atraumatic. No pharyngeal erythema. No thyromegaly. CARDIOVASCULAR: S1 and S2 present. No murmurs, rubs, or gallops. PULMONARY: Chest is clear to auscultation, no wheezing or crackles. ABDOMEN: Soft, nontender, nondistended, normoactive bowel sounds. No palpable organomegaly. MUSCULOSKELETAL: No joint swelling or deformity. EXTREMITIES: No cyanosis, clubbing, or pedal edema. NEUROLOGICAL: Gross neurological examination did not reveal any focal deficits. SKIN: No rashes. no petechiae. - Labs CBC & Chem 7: 02/17/20 10:04 02/17/20 10:04 Labs: Abnormal Lab Results - Last 24 Hours (Table) 02/16/20 02/16/20 02/17/20 Range/Units 05:49 20:19 07:07 RBC (3.80-5.40) m/uL Hgb (11.4-16.0) gm/dL Hct (34.0-46.0) % MCV (80.0-100.0) fL Lymphocytes # (1.0-4.8) k/uL Glucose (74-99) mg/dL POC Glucose (mg/dL) 182 H 118 H (75-99) mg/dL Hemoglobin A1c 7.3 H (4.0-6.0) % C-Reactive Protein (<10.0) mg/L Procalcitonin (0.02-0.09) ng/mL 02/17/20 02/17/20 02/17/20 Range/Units 10:04 10:04 10:04 RBC 3.68 L (3.80-5.40) m/uL Hgb 9.3 L (11.4-16.0) gm/dL Hct 28.3 L (34.0-46.0) % MCV 76.9 L (80.0-100.0) fL Lymphocytes # 0.8 L (1.0-4.8) k/uL Glucose 214 H (74-99) mg/dL POC Glucose (mg/dL) (75-99) mg/dL Hemoglobin A1c (4.0-6.0) % C-Reactive Protein 72.7 H (<10.0) mg/L Procalcitonin 0.12 H (0.02-0.09) ng/mL 02/17/20 02/17/20 Range/Units 11:20 16:32 RBC (3.80-5.40) m/uL Hgb (11.4-16.0) gm/dL Hct (34.0-46.0) % MCV (80.0-100.0) fL Lymphocytes # (1.0-4.8) k/uL Glucose (74-99) mg/dL POC Glucose (mg/dL) 158 H 168 H (75-99) mg/dL Hemoglobin A1c (4.0-6.0) % C-Reactive Protein (<10.0) mg/L Procalcitonin (0.02-0.09) ng/mL Microbiology - Last 24 Hours (Table) 02/15/20 13:00 Blood Culture - Preliminary Blood No Growth after 48 hours 02/15/20 13:00 Urine Culture - Final Urine,Voided Assessment and Plan Assessment: -Acute UTI with cystitis, in a patient who is immunosuppressed. Urine culture positive. Continue with Rocephin, ID consult and follow blood culture -Sepsis from UTI-improving. -Pancreatic cancer treated with Whipple's surgery several half years ago but now with recurrence to the liver and lower vertebra. Currently on chemotherapeutic , Oncology team for following the case and recommended to hold Afinitor and follow up as outpt with her oncologist -Diabetes mellitus type 2 -Essential hypertension -Obesity BMI 32.9 DVT prophylaxis: Lovenox GI prophylaxis Pepcid or PPI PT/OT: No need Possible discharge in 24-48 hours if she keeps improving
[2020-02-17 20:17] LABS: Glucose,Whole Blood 180 mg/dL (75-99)
[2020-02-17] MEDS ORDERED: AFINITOR 10 MG PO SCH (21:00)
[2020-02-17] MEDS: INSULIN DETEMIR (LEVEMIR) 100 UNIT/ML SYR SQ SCH (21:17)
[2020-02-18] MEDS: SODIUM CHLORIDE 0.9% 1,000 ML IV SCH (04:46)
--- NOTE | 2020-02-18 06:23 | P.CONS ---
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 presenting to the ER at [facility] on 02/15/2020 with fever of 1 day duration patient mentioned she did have a fever of 104 Fahrenheit along with cold sweat and chills, but denies having any headache DVT she denies having any URI symptoms denies having any chest pain shortness of breath or cough no nausea no vomiting no abdominal pain no diarrhea with the symptoms patient was evaluated by the physician on arrival to the ER patient did have fever of 104 Fahrenheit patient was mildly tachycardic with a pulse of 103 patient did have a normal white count with lymphopenia, patient did have mildly elevated liver enzymes, the patient did have elevated CRP and pro-calcitonin patient did have positive UA with moderate leukocyte esterase, WBC, patient chest x-ray was negative: L came back negative patient has been treated with Rocephin 1 g daily with overall resolution of her fever to culture has been negative infectious disease was consulted today for recommendation regarding antibiotic therapy, patient is feeling much better and has been insisting to go home Review of Systems Positive point has been mentioned in the HPI rest of the systems are negative Past Medical History Past Medical History: Cancer, Chest Pain / Angina, Diabetes Mellitus, Hypertension Additional Past Medical History / Comment(s): hx neuroendocrine tumor, liver lesions, heart murmur, pancreatic cancer with metastasis to liver and lower vertebrae, plantar fascitis History of Any Multi-Drug Resistant Organisms: None Reported Past Surgical History: Section, Orthopedic Surgery Additional Past Surgical History / Comment(s): whipple and tumor removed. orthopedic surgery john feet, c-sect x 1 Past Anesthesia/Blood Transfusion Reactions: No Reported Reaction Past Psychological History: No Psychological Hx Reported Smoking Status: Former smoker Past Alcohol Use History: Rare Additional Past Alcohol Use History / Comment(s): smoked 10-12 years 1/2 ppd quit age 27 Past Drug Use History: None Reported - Past Family History Mother Family Medical History: No Reported History Medications and Allergies Home Medications Medication Instructions Recorded Confirmed Type lisinopriL [Zestril] 20 mg PO DAILY 12/29/13 02/15/20 History Afinitor 10mg 10 mg PO DIRECTED 06/02/19 02/15/20 History Calcium Carbonate [Calcium] 600 mg PO DAILY 06/02/19 02/15/20 History Cholecalciferol [Vitamin D3 (25 1,000 unit PO DAILY 06/02/19 02/15/20 History Mcg = 1000 Iu)] Ferrous Sulfate [Iron (65 MG 325 mg PO DAILY 06/02/19 02/15/20 History Elemental)] Insulin Glargine,Hum.rec.anlog 10 unit SQ HS 06/02/19 02/15/20 History [Lantus Solostar] Octreotide Lar [SandoSTATIN LAR] 30 mg IM Q30D 06/02/19 02/15/20 History Ascorbic Acid [Vitamin C] 500 mg PO DAILY 02/15/20 02/15/20 History Insulin Lispro [humaLOG Kwikpen] See Protocol SQ AC-TID 02/15/20 02/15/20 History Levofloxacin [Levaquin] 500 mg PO DAILY 02/15/20 02/15/20 History [place]-3 Fatty Acids [[place]-3] 1,000 mg PO DAILY 02/15/20 02/15/20 History Turmeric Root Extract [Turmeric] 500 mg PO DAILY 02/15/20 02/15/20 History Ubidecarenone [Co Q-10] 100 mg PO DAILY 02/15/20 02/15/20 History metFORMIN HCL [Glucophage] 1,000 mg PO W/SUPPER 02/15/20 02/15/20 History metFORMIN HCL [Glucophage] 500 mg PO DAILY 02/15/20 02/15/20 History Cefuroxime Axetil [Ceftin] 500 mg PO BID #8 tab 02/17/20 Rx Allergies Allergy/AdvReac Type Severity Reaction Status Date / Time Penicillins Allergy Unknown Verified 02/15/20 13:45 Childhood Sulfa (Sulfonamide Allergy Rash/Hives Verified 02/15/20 13:45 Antibiotics) GANOLINIUM CONTRAST Allergy Unknown Uncoded 02/15/20 12:30 Physical Exam Vitals: Vital Signs Temp Pulse Resp BP Pulse Ox 02/17/20 07:40 16 02/17/20 07:00 98.7 F 62 16 137/77 97 02/17/20 01:15 98.3 F 72 16 149/92 98 02/16/20 19:10 98.2 F 71 14 152/93 98 Intake and Output 02/16/20 02/17/20 02/17/20 22:59 06:59 14:59 Intake Total 100 200 Balance 100 200 Intake: Oral 100 200 Other: Voiding Method Toilet Toilet # Voids 1 GENERAL DESCRIPTION: Middle-aged female lying in bed, no distress. No tachypnea or accessory muscle of respiration use. HEENT: Shows Pallor , no scleral icterus. Oral mucous membrane is dry. No phar yngeal erythema or thrush NECK: Trachea central, no thyromegaly. LUNGS: Unlabored breathing. Clear to auscultation anteriorly. No wheeze or crackle. HEART: S1, S2, regular rate and rhythm. No loud murmur ABDOMEN: Soft, no tenderness , guarding or rigidity, no organomegaly EXTREMITIES: No edema of feet. SKIN: No rash, no masses palpable. NEUROLOGICAL: The patient is awake, alert, oriented x3, mood and affect normal. Results CBC & Chem 7: 02/17/20 10:04 02/17/20 10:04 Labs: Abnormal Lab Results - Last 24 Hours (Table) 02/16/20 02/16/20 02/16/20 Range/Units 05:49 05:49 17:04 RBC (3.80-5.40) m/uL Hgb (11.4-16.0) gm/dL Hct (34.0-46.0) % MCV (80.0-100.0) fL Lymphocytes # (1.0-4.8) k/uL Glucose (74-99) mg/dL POC Glucose (mg/dL) 216 H (75-99) mg/dL Hemoglobin A1c 7.3 H (4.0-6.0) % Iron 426 H (50-170) ug/dL % Saturation 162.60 H (12.00-45.00) Ferritin 569.7 H (10.0-291.0) ng/mL C-Reactive Protein (<10.0) mg/L 02/16/20 02/17/20 02/17/20 Range/Units 20:19 07:07 10:04 RBC 3.68 L (3.80-5.40) m/uL Hgb 9.3 L (11.4-16.0) gm/dL Hct 28.3 L (34.0-46.0) % MCV 76.9 L (80.0-100.0) fL Lymphocytes # 0.8 L (1.0-4.8) k/uL Glucose (74-99) mg/dL POC Glucose (mg/dL) 182 H 118 H (75-99) mg/dL Hemoglobin A1c (4.0-6.0) % Iron (50-170) ug/dL % Saturation (12.00-45.00) Ferritin (10.0-291.0) ng/mL C-Reactive Protein (<10.0) mg/L 02/17/20 02/17/20 Range/Units 10:04 11:20 RBC (3.80-5.40) m/uL Hgb (11.4-16.0) gm/dL Hct (34.0-46.0) % MCV (80.0-100.0) fL Lymphocytes # (1.0-4.8) k/uL Glucose 214 H (74-99) mg/dL POC Glucose (mg/dL) 158 H (75-99) mg/dL Hemoglobin A1c (4.0-6.0) % Iron (50-170) ug/dL % Saturation (12.00-45.00) Ferritin (10.0-291.0) ng/mL C-Reactive Protein 72.7 H (<10.0) mg/L Microbiology - Last 24 Hours (Table) 02/15/20 13:00 Urine Culture - Final Urine,Voided 02/15/20 13:00 Blood Culture - Preliminary Blood No Growth after 24 hours Assessment and Plan Assessment: 1- patient presented to the hospital with fever of 1 day duration in this patient who did have positive UA and no other obvious focus of infection, patient did have overall resolution of the fever With the Rocephin and cultures remains to be negative, patient is feeling better and insisted in going home 2-Patient with multiple antibiotic ALLERGIES that would limit the number of antibiotic safe to use (1) Fever Current Visit: Yes Status: Acute Code(s): R50.9 - FEVER, UNSPECIFIED SN OMED Code(s): 327458195 Plan: 1- as the patient seemed to have clinically responded to Rocephin and cultures has been negative and no other obvious focus of infection antibiotics will be switched over to Ceftin 500 mg twice a day for 7 days prescription has been sent to the pharmacy, patient can go home from infectious disease standpoint, daily patient on Rocephin 1 g daily while the patient We will follow on clinical condition and cultures to further adjust medication if needed Thank you for this consultation will follow this patient with you Time with Patient: Greater than 30
[2020-02-18 07:25] VITALS: BP 155/91; PULSE 67; RESP 18; TEMP 97.7
[2020-02-18 07:26] LABS: Glucose,Whole Blood 122 mg/dL (75-99)
[2020-02-18] MEDS: ENOXAPARIN 40 MG/0.4 ML SYRINGE SQ SCH (07:28)
[2020-02-18] MEDS: CHOLECALCIFEROL 1,000 UNIT TAB PO SCH (07:28)
[2020-02-18] MEDS: ASCORBIC ACID 500 MG TAB PO SCH (07:28)
[2020-02-18] MEDS: FERROUS SULFATE 325 MG TAB PO SCH (07:28)
[2020-02-18] MEDS: metFORMIN 500 MG TAB PO SCH (07:28)
[2020-02-18] MEDS: CALCIUM CARBONATE 500 MG CHEWABLE PO SCH (07:28)
[2020-02-18] MEDS: INSULIN ASPART (NovoLOG) 100 UNIT/ML VIAL SQ SCH ×4 (07:29→12:10)
[2020-02-18] MEDS: lisinopriL 20 MG TAB PO SCH (07:29)
[2020-02-18 11:52] LABS: Glucose,Whole Blood 148 mg/dL (75-99)
--- NOTE | 2020-02-18 13:08 | P.DS ---
Providers Date of admission: 02/15/20 14:26 Attending physician: David Mack Consults: 02/15/20 14:27 Consult Physician Urgent Consulting Provider: Hugo Gallardo Consult Reason/Comments: Oncological care Do you want consulting provider notified?: Already Contacted 02/17/20 11:22 Consult Physician Urgent Consulting Provider: Ryan Hameed Consult Reason/Comments: fever with no source, possilbe UTI Do you want consulting provider notified?: Yes Primary care physician: Esa Keller [facility] Course: diagnoses: -Acute UTI with cystitis, in a patient who is immunosuppressed. Urine culture negative. Continue with ceftin upon discharge by ID team -Sepsis from UTI-improving. -Pancreatic cancer treated with Whipple's surgery several half years ago but now with recurrence to the liver and lower vertebra. Currently on chemotherapeutic , Oncology team for following the case and recommended to hold Afinitor and follow up as outpt with her oncologist -Diabetes mellitus type 2 -Essential hypertension -Obesity BMI 32.9 Hospital course: This is a pleasant 49-year-old patient of Dr. Keller. Diagnosed with pancreatic cancer and about 7 a half years ago. During a routine ultrasound. U nderwent Whipple's procedure. About 2 years ago done of metastatic systems the liver and/or vertebra. Patient is on a maintenance chemotherapy pill doing this well with the same. One day ago patient started out with high fevers and chills at home. No respiratory symptoms. Was suspicious for infection.Admitted with UTI with cystitis causing sepsis and immunosuppressed patient. Started IV ceftriaxone.fever subsided. For 2 days patient was asymptomatic no chest pain or abdominal pain, no dysuria or change in urine or bowel habits. No more fever. Patient was cleared by ID team for discharge on , prescription was sent to the pharmacy by ID team Problems and management plan were discussed with the patient and he verbalized understanding and acceptance Patient was found stable and can be discharged home however he needs follow-up as an outpatient. Patient was instructed to follow up with PCP Dr. Keller within one week and patient agrees. Patient also was instructed to follow up with Hillary from hematology oncology with Dr. Lanza/Dr. Uriostegui in one week and she agrees to call and make appointment Gen: patient is a AAOx3, no distress CVS: S1-S2, RRR, no murmur Lungs: B/L CTA, no wheezing Abdomen: soft, no distention, no tenderness, positive bowel sounds Extremity: no leg edema or induration Time spent more than 35 minutes Plan - Discharge Summary New Discharge Prescriptions: New Cefuroxime Axetil [Ceftin] 500 mg PO BID #8 tab Continue lisinopriL [Zestril] 20 mg PO DAILY Ferrous Sulfate [Iron (65 MG Elemental)] 325 mg PO DAILY Cholecalciferol [Vitamin D3 (25 Mcg = 1000 Iu)] 1,000 unit PO DAILY Octreotide Lar [SandoSTATIN LAR] 30 mg IM Q30D Insulin Glargine,Hum.rec.anlog [Lantus Solostar] 10 unit SQ HS Afinitor 10mg 10 mg PO DIRECTED Calcium Carbonate [Calcium] 600 mg PO DAILY Ascorbic Acid [Vitamin C] 500 mg PO DAILY Insulin Lispro [humaLOG Kwikpen] See Protocol SQ AC-TID metFORMIN HCL [Glucophage] 500 mg PO DAILY metFORMIN HCL [Glucophage] 1,000 mg PO W/SUPPER [place]-3 Fatty Acids [[place]-3] 1,000 mg PO DAILY Turmeric Root Extract [Turmeric] 500 mg PO DAILY Ubidecarenone [Co Q-10] 100 mg PO DAILY Discontinued Levofloxacin [Levaquin] 500 mg PO DAILY Discharge Medication List lisinopriL [Zestril] 20 mg PO DAILY 12/29/13 [History] Afinitor 10mg 10 mg PO DIRECTED 06/02/19 [History] Calcium Carbonate [Calcium] 600 mg PO DAILY 06/02/19 [History] Cholecalciferol [Vitamin D3 (25 Mcg = 1000 Iu)] 1,000 unit PO DAILY 06/02/19 [History] Ferrous Sulfate [Iron (65 MG Elemental)] 325 mg PO DAILY 06/02/19 [History] Insulin Glargine,Hum.rec.anlog [Lantus Solostar] 10 unit SQ HS 06/02/19 [ History] Octreotide Lar [SandoSTATIN LAR] 30 mg IM Q30D 06/02/19 [History] Ascorbic Acid [Vitamin C] 500 mg PO DAILY 02/15/20 [History] Insulin Lispro [humaLOG Kwikpen] See Protocol SQ AC-TID 02/15/20 [History] [place]-3 Fatty Acids [[place]-3] 1,000 mg PO DAILY 02/15/20 [History] Turmeric Root Extract [Turmeric] 500 mg PO DAILY 02/15/20 [History] Ubidecarenone [Co Q-10] 100 mg PO DAILY 02/15/20 [History] metFORMIN HCL [Glucophage] 1,000 mg PO W/SUPPER 02/15/20 [History] metFORMIN HCL [Glucophage] 500 mg PO DAILY 02/15/20 [History] Cefuroxime Axetil [Ceftin] 500 mg PO BID #8 tab 02/17/20 [Rx] Follow up Appointment(s)/Referral(s): Esa Keller DO [Primary Care Provider] - 1-2 days Grupo Lanza MD [STAFF PHYSICIAN] - 1 Week (follow-up with Hillary from hematology oncology team.) Activity/Diet/Wound Care/Special Instructions: heart healthy diet Activity as tolerated
[2020-02-20 06:21] LABS: Methylmalonic Acid 0.43 umol/L (<0.40)
== END 2020-02-18 13:19 | disposition home or self-care (01) | DRG 872 ==
LOC: EC 12:10 → 4SSUR 14:26
PROVIDERS: ADMIT Hospitalist; ATTEND Hospitalist
DX: A41.9 Sepsis, unspecified organism (principal); C79.51 Secondary malignant neoplasm of bone; D84.9 Immunodeficiency, unspecified; C78.7 Secondary malignant neoplasm of liver and intrahepatic bile duct; E66.9 Obesity, unspecified; I10 Essential (primary) hypertension; E11.9 Type 2 diabetes mellitus without complications; N30.90 Cystitis, unspecified without hematuria; Z20.828 Contact with and (suspected) exposure to other viral communicable diseases; D3A.8 Other benign neuroendocrine tumors; Z79.84 Long term (current) use of oral hypoglycemic drugs; Z68.32 Body mass index [BMI] 32.0-32.9, adult; Z79.899 Other long term (current) drug therapy; Z88.0 Allergy status to penicillin; Z88.2 Allergy status to sulfonamides; Z91.09 Other allergy status, other than to drugs and biological substances; Z98.890 Other specified postprocedural states; Z98.891 History of uterine scar from previous surgery
CPT/HCPCS: 36415; 71046; 80048; 80053; 81001; 82607; 82728; 82746; 83036; 83540; 83550; 83605; 83615; 83921; 84145; 85025; 85045; 85610; 85730; 86140; 86316; 87040; 87086; 87502; 96365; 99285

== ENCOUNTER → 2020-03-26 | Outpatient (CLI) | payer OTHER, BC ==
[2020-03-26 10:04] LABS: African American GFR (CKD) >90 (>60 ml/min/1.73 sqM); Blood Urea Nitrogen 17 mg/dL (7-17); Non-African American GFR(CKD) 88 (>60 ml/min/1.73 sqM)
--- NOTE | 2020-03-26 14:12 | CT ---
EXAMINATION TYPE: CT abdomen pelvis w con DATE OF EXAM: 03/26/2020 COMPARISON: HISTORY: Pancreatic Cancer CT DLP: 1566 mGycm Automated exposure control for dose reduction was used. TECHNIQUE: Helical acquisition of images from the lung bases through the pelvis have been completed. CONTRAST: Performed with Oral Contrast and with IV Contrast, patient injected with 100 ml mL of Isovue 370. FINDINGS: LUNG BASES: No significant abnormality is appreciated. AORTA: No significant abnormality is appreciated. LIVER/GB: There is hepatic steatosis, some areas of relative increased attenuation noted on the arter ial phase towards the dome, axial image 15. Delayed imaging shows more homogenous uptake within the l iver, small focus of increased attenuation towards the posterior dome seen on previous CT on axial im age 8 and 21 is not seen definitively on today's exam. Liver is enlarged. Gallbladder is not seen. PANCREAS: Pancreas is small, atrophic similar to prior exam, discrete mass is not identified, there i s no ductal dilatation. SPLEEN: No significant abnormality is seen. ADRENALS: No significant abnormality is seen. KIDNEYS: No significant abnormality is seen. REPRODUCTIVE ORGANS: No significant abnormality is seen BOWEL: Surgical clips are noted associated with the bowel loop near the head of the pancreas. FREE AIR: No Free Air visible. ASCITES: None visible. PELVIC ADENOPATHY: None visualized. RETROPERITONEAL ADENOPATHY: No Retroperitoneal Adenopathy visible. URINARY BLADDER: No significant abnormality is seen. OSSEOUS STRUCTURES: No significant abnormality is seen. IMPRESSION: POSTOP CHANGES. ABNORMALITIES WITHIN THE LIVER MAY BE RELATED TO HEPATIC STEATOSIS, LIVER MRI COULD B E CONFIRMATORY, FOLLOW-UP SUGGESTED TO ASSESS FOR STABILITY.
== END | disposition home or self-care (01) ==
LOC: RADCTMAIN 09:00
PROVIDERS: ATTEND Internal Medicine Hematology & Oncology
DX: R93.2 Abnormal findings on diagnostic imaging of liver and biliary tract (principal); C25.4 Malignant neoplasm of endocrine pancreas; E11.9 Type 2 diabetes mellitus without complications; Z98.890 Other specified postprocedural states; Z88.0 Allergy status to penicillin; Z88.2 Allergy status to sulfonamides; Z91.09 Other allergy status, other than to drugs and biological substances
CPT/HCPCS: 82565; 84520; 74177; 36415; Q9967

== ENCOUNTER 2020-11-28 01:17 | Emergency (ER) | payer OTHER, BC ==
[2020-11-28 01:30] VITALS: RESP 20
[2020-11-28] MEDS ORDERED: IBUPROFEN 600 MG TAB PO STA (01:47)
[2020-11-28] MEDS ORDERED: ACETAMINOPHEN TAB 500 MG TAB PO STA (01:47)
[2020-11-28] MEDS ORDERED: SODIUM CHLORIDE 0.9% 1,000 ML IV STA (01:47)
[2020-11-28] MEDS ORDERED: cefTRIAXone IN SWFI 1,000 MG/10 ML SYRINGE IVP STA (02:06)
--- NOTE | 2020-11-28 02:08 | ED ---
General Adult HPI - General Chief complaint: Fever Stated complaint: Fever, chills Time Seen by Provider: 11/28/20 01:36 Source: patient, RN notes reviewed Mode of arrival: ambulatory - History of Present Illness Initial comments: 50-year-old female with a past medical history of diabetes mellitus, hypertension, pancreatic cancer with metastases to the liver and lower vertebrae , neuroendocrine tumor presents to the emergency room for a chief complaint of fever. Patient reports she had chills all day today by her temperature was normal. However she was tossing and turning all night and went to check her temperature again and it was 101. Patient reports the last time this happened she turn septic. Patient states that she is on a low-dose chemo pill for pancreatic cancer with metastasis. Patient states she was outside working in the garden this past weekend and had several mosquito bites and has been scratching a lot, concerned she may have acquired an infection from this. Patient denies cough congestion sore throat. Denies abdominal pain. Denies dysuria.Patient has no other complaints at this time including shortness of breath, chest pain, abdominal pain, nausea or vomiting, headache, or visual changes. - Related Data Home Medications Medication Instructions Recorded Confirmed lisinopriL [Zestril] 20 mg PO DAILY 12/29/13 02/15/20 Afinitor 10mg 10 mg PO DIRECTED 06/02/19 02/15/20 Calcium Carbonate [Calcium] 600 mg PO DAILY 06/02/19 02/15/20 Cholecalciferol [Vitamin D3 (25 1,000 unit PO DAILY 06/02/19 02/15/20 Mcg = 1000 Iu)] Ferrous Sulfate [Iron (65 MG 325 mg PO DAILY 06/02/19 02/15/20 Elemental)] Insulin Glargine,Hum.rec.anlog 10 unit SQ HS 06/02/19 02/15/20 [Lantus Solostar] Octreotide Lar [SandoSTATIN LAR] 30 mg IM Q30D 06/02/19 02/15/20 Ascorbic Acid [Vitamin C] 500 mg PO DAILY 02/15/20 02/15/20 Insulin Lispro [humaLOG Kwikpen] See Protocol SQ AC-TID 02/15/20 02/15/20 [place]-3 Fatty Acids [[place]-3] 1,000 mg PO DAILY 02/15/20 02/15/20 Turmeric Root Extract [Turmeric] 500 mg PO DAILY 02/15/20 02/15/20 Ubidecarenone [Co Q-10] 100 mg PO DAILY 02/15/20 02/15/20 metFORMIN HCL [Glucophage] 1,000 mg PO W/SUPPER 02/15/20 02/15/20 metFORMIN HCL [Glucophage] 500 mg PO DAILY 02/15/20 02/15/20 Previous Rx's Medication Instructions Recorded Cefuroxime Axetil [Ceftin] 500 mg PO BID #8 tab 02/17/20 Allergies Allergy/AdvReac Type Severity Reaction Status Date / Time Penicillins Allergy Unknown Verified 11/28/20 01:30 Childhood Sulfa (Sulfonamide Allergy Rash/Hives Verified 11/28/20 01:30 Antibiotics) GANOLINIUM CONTRAST Allergy Unknown Uncoded 11/28/20 01:30 Review of Systems ROS Statement: Those systems with pertinent positive or pertinent negative responses have been documented in the HPI. ROS Other: All systems not noted in ROS Statement are negative. Past Medical History Past Medical History: Cancer, Chest Pain / Angina, Diabetes Mellitus, Hypertension Additional Past Medical History / Comment(s): hx neuroendocrine tumor, liver l esions, heart murmur, pancreatic cancer with metastasis to liver and lower vertebrae, plantar fascitis History of Any Multi-Drug Resistant Organisms: None Reported Past Surgical History: Section, Orthopedic Surgery Additional Past Surgical History / Comment(s): whipple and tumor removed. orthopedic surgery john feet, c-sect x 1 Past Anesthesia/Blood Transfusion Reactions: No Reported Reaction Past Psychological History: No Psychological Hx Reported Smoking Status: Former smoker Past Alcohol Use History: Rare Past Drug Use History: None Reported - Past Family History Mother Family Medical History: No Reported History General Exam General appearance: alert, in no apparent distress Head exam: Present: atraumatic, normocephalic, normal inspection Eye exam: Present: normal appearance ENT exam: Present: normal exam, mucous membranes moist Neck exam: Present: normal inspection, full ROM. Absent: tenderness, meningismus, lymphadenopathy Respiratory exam: Present: normal lung sounds bilaterally. Absent: respiratory distress, wheezes, rales, rhonchi, stridor Cardiovascular Exam: Present: regular rate, normal rhythm, normal heart sounds. Absent: systolic murmur, diastolic murmur, rubs, gallop, clicks GI/Abdominal exam: Present: soft, normal bowel sounds. Absent: distended, tenderness, guarding, rebound, rigid Course Vital Signs 11/28/20 01:26 Temperature 101.2 F H Pulse Rate 105 H Respiratory 20 Rate Blood Pressure 160/100 O2 Sat by Pulse 97 Oximetry Medical Decision Making - Medical Decision Making Vitals are stable. Patient does have a fever of 101.2. Patient is well-appearing. Lungs are clear. CBC is is unremarkable. White blood cell count is 6.4. CMP unremarkable. No abdominal pain. Urinalysis does not show any significant evidence of infection, culture pending. Coronavirus negative. Lactic acid normal. Blood cultures ordered. Chest x-ray shows a normal test. At this time patient reevaluated, well-appearing. Patient can be discharged home to follow up with primary care and her oncologist Dr Gallardo. - Lab Data Result diagrams: 11/28/20 02:16 11/28/20 02:16 Lab Results 11/28/20 11/28/20 11/28/20 Range/Units 02:16 02:16 02:16 WBC 6.4 (3.8-10.6) k/uL RBC 4.04 (3.80-5.40) m/uL Hgb 10.5 L (11.4-16.0) gm/dL Hct 30.1 L (34.0-46.0) % MCV 74.6 L (80.0-100.0) fL MCH 26.0 (25.0-35.0) pg MCHC 34.9 (31.0-37.0) g/dL RDW 13.3 (11.5-15.5) % Plt Count 225 (150-450) k/uL MPV 7.6 Neutrophils % 72 % Lymphocytes % 18 % Monocytes % 6 % Eosinophils % 2 % Basophils % 1 % Neutrophils # 4.6 (1.3-7.7) k/uL Lymphocytes # 1.2 (1.0-4.8) k/uL Monocytes # 0.4 (0-1.0) k/uL Eosinophils # 0.1 (0-0.7) k/uL Basophils # 0.0 (0-0.2) k/uL Microcytosis Slight PT 9.9 (9.0-12.0) sec INR 0.9 (<1.2) APTT 23.6 (22.0-30.0) sec Sodium (137-145) mmol/L Potassium (3.5-5.1) mmol/L Chloride (98-107) mmol/L Carbon Dioxide (22-30) mmol/L Anion Gap mmol/L BUN (7-17) mg/dL Creatinine (0.52-1.04) mg/dL Est GFR (CKD-EPI)AfAm (>60 ml/min/1.73 sqM) Est GFR (CKD-EPI)NonAf (>60 ml/min/1.73 sqM) Glucose (74-99) mg/dL Plasma Lactic Acid Chavez (0.7-2.0) mmol/L Calcium (8.4-10.2) mg/dL Total Bilirubin (0.2-1.3) mg/dL AST (14-36) U/L ALT (4-34) U/L Alkaline Phosphatase (38-126) U/L Total Protein (6.3-8.2) g/dL Albumin (3.5-5.0) g/dL Urine Color Light Yellow Urine Appearance Clear (Clear) Urine pH 5.5 (5.0-8.0) Ur Specific [place] 1.004 (1.001-1.035) Urine Protein Negative (Negative) Urine Glucose (UA) Negative (Negative) Urine Ketones Negative (Negative) Urine Blood Large H (Negative) Urine Nitrite Negative (Negative) Urine Bilirubin Negative (Negative) Urine Urobilinogen <2.0 (<2.0) mg/dL Ur Leukocyte Esterase Negative (Negative) Urine RBC 4 (0-5) /hpf Urine WBC 1 (0-5) /hpf Ur Squamous Epith Cells 1 (0-4) /hpf Urine Bacteria Rare H (None) /hpf Coronavirus (PCR) (Not Detectd) 11/28/20 11/28/20 11/28/20 Range/Units 02:16 02:16 02:16 WBC (3.8-10.6) k/uL RBC (3.80-5.40) m/uL Hgb (11.4-16.0) gm/dL Hct (34.0-46.0) % MCV (80.0-100.0) fL MCH (25.0-35.0) pg MCHC (31.0-37.0) g/dL RDW (11.5-15.5) % Plt Count (150-450) k/uL MPV Neutrophils % % Lymphocytes % % Monocytes % % Eosinophils % % Basophils % % Neutrophils # (1.3-7.7) k/uL Lymphocytes # (1.0-4.8) k/uL Monocytes # (0-1.0) k/uL Eosinophils # (0-0.7) k/uL Basophils # (0-0.2) k/uL Microcytosis PT (9.0-12.0) sec INR (<1.2) APTT (22.0-30.0) sec Sodium 138 (137-145) mmol/L Potassium 4.2 (3.5-5.1) mmol/L Chloride 104 (98-107) mmol/L Carbon Dioxide 24 (22-30) mmol/L Anion Gap 10 mmol/L BUN 17 (7-17) mg/dL Creatinine 1.01 (0.52-1.04) mg/dL Est GFR (CKD-EPI)AfAm 76 (>60 ml/min/1.73 sqM) Est GFR (CKD-EPI)NonAf 66 (>60 ml/min/1.73 sqM) Glucose 126 H (74-99) mg/dL Plasma Lactic Acid Chavez 1.0 (0.7-2.0) mmol/L Calcium 9.1 (8.4-10.2) mg/dL Total Bilirubin 0.5 (0.2-1.3) mg/dL AST 47 H (14-36) U/L ALT 57 H (4-34) U/L Alkaline Phosphatase 81 (38-126) U/L Total Protein 7.2 (6.3-8.2) g/dL Albumin 4.3 (3.5-5.0) g/dL Urine Color Urine Appearance (Clear) Urine pH (5.0-8.0) Ur Specific [place] (1.001-1.035) Urine Protein (Negative) Urine Glucose (UA) (Negative) Urine Ketones (Negative) Urine Blood (Negative) Urine Nitrite (Negative) Urine Bilirubin (Negative) Urine Urobilinogen (<2.0) mg/dL Ur Leukocyte Esterase (Negative) Urine RBC (0-5) /hpf Urine WBC (0-5) /hpf Ur Squamous Epith Cells (0-4) /hpf Urine Bacteria (None) /hpf Coronavirus (PCR) Not Detected (Not Detectd) Disposition Clinical Impression: Fever Disposition: HOME SELF-CARE Condition: Good Instructions (If sedation given, give patient instructions): Fever in Adults (ED) Additional Instructions: Please take Motrin and Tylenol for fever alternating every 3 hours as needed. Follow-up with your oncologist tomorrow. If you have worsening symptoms return to the emergency room. Is patient prescribed a controlled substance at d/c from ED?: No Referrals: Esa Keller DO [Primary Care Provider] - 1-2 days Time of Disposition: 03:22
--- NOTE | 2020-11-28 02:24 | XR ---
EXAMINATION TYPE: XR chest 2V DATE OF EXAM: 11/28/2020 COMPARISON: 02/15/2020 HISTORY: Fever TECHNIQUE: 2 views FINDINGS: Heart and mediastinum are normal. Lungs are clear. Diaphragm is normal. Bony thorax is inta ct. IMPRESSION: Normal chest. No change.
[2020-11-28 02:32] LABS: Basophils % (A) 1 %; Eosinophils # (A) 0.1 k/uL (0-0.7); Eosinophils % (A) 2 %; HCT 30.1 % (34.0-46.0); HGB 10.5 gm/dL (11.4-16.0); Lymphocytes # (A) 1.2 k/uL (1.0-4.8); Lymphocytes % (A) 18 %; MCHC 34.9 g/dL (31.0-37.0); MCV 74.6 fL (80.0-100.0); Mean Platelet Volume 7.6; Microcytosis Slight; Monocytes # (A) 0.4 k/uL (0-1.0); Monocytes % (A) 6 %; Neutrophils # (A) 4.6 k/uL (1.3-7.7); Neutrophils % (A) 72 %; Platelet Count 225 k/uL (150-450); RBC 4.04 m/uL (3.80-5.40); RDW 13.3 % (11.5-15.5); WBC 6.4 k/uL (3.8-10.6)
[2020-11-28 02:41] LABS: INR 0.9 (<1.2); Partial Thromboplastin Time 23.6 sec (22.0-30.0); Prothrombin Time 9.9 sec (9.0-12.0)
[2020-11-28 02:50] LABS: Albumin 4.3 g/dL (3.5-5.0); Calcium 9.1 mg/dL (8.4-10.2); Potassium 4.2 mmol/L (3.5-5.1); Total Bilirubin 0.5 mg/dL (0.2-1.3); Total Protein 7.2 g/dL (6.3-8.2)
[2020-11-28 02:52] LABS: Appearance,Urine Clear (Clear); Bacteria,Urine Rare /hpf; Bilirubin,Urine Negative (Negative); Blood,Urine Large (Negative); Color,Urine Light Yellow; Glucose,Urine (UA) Negative (Negative); Ketones,Urine Negative (Negative); Leukocyte Esterase,Urine Negative (Negative); Nitrite,Urine Negative (Negative); PH, Urine 5.5 (5.0-8.0); Protein,Urine Negative (Negative); RBC,Urine 4 /hpf (0-5); Specific Gravity,Urine 1.004 (1.001-1.035); Squamous Epithelial Cell,Urine 1 /hpf (0-4); Urobilinogen,Urine <2.0 mg/dL (<2.0); WBC,Urine 1 /hpf (0-5)
[2020-11-28 03:39] VITALS: BP 126/87; PULSE 98; TEMP 98.5
== END 2020-11-28 03:51 | disposition home or self-care (01) ==
LOC: EC 01:17
DX: R50.9 Fever, unspecified (principal); C25.9 Malignant neoplasm of pancreas, unspecified; I10 Essential (primary) hypertension; E11.9 Type 2 diabetes mellitus without complications; Z87.891 Personal history of nicotine dependence; Z20.822 Contact with and (suspected) exposure to COVID-19; Z79.4 Long term (current) use of insulin; Z88.0 Allergy status to penicillin; Z88.2 Allergy status to sulfonamides; Z88.8 Allergy status to other drugs, medicaments and biological substances
CPT/HCPCS: 99284 ×2; 96374 ×2; 96361 ×2; 36415; 80053; 83605; 85025; 85610; 85730; 81001; 87040; 87635; 71046; J0696

== ENCOUNTER → 2020-12-03 | Outpatient (CLI) | payer OTHER, BC ==
--- NOTE | 2020-12-04 08:01 | CT ---
EXAMINATION TYPE: CT ChestAbdPelvis w con DATE OF EXAM: 12/03/2020 COMPARISON: 03/26/2020 HISTORY: obs for mets h/o pancreatic ca CT DLP: 1810 mGycm CONTRAST: CT scan of the chest, abdomen and pelvis is performed with Oral Contrast and with IV Contrast, patien t injected with 80 mL of Isovue 300. CT Chest: LUNGS: The lungs are clear and free of infiltrate or atelectasis. No pulmonary nodule or mass is det ected. No pleural effusion or CT evidence of interstitial lung disease. MEDIASTINUM: Thoracic aorta is of normal caliber. The heart is not enlarged. No evidence for media stinal mass or adenopathy. HILAR STRUCTURES: No evidence for mass. No hilar adenopathy is appreciated. OTHER: No significant abnormality. CONTRAST CT ABDOMEN AND PELVIS FINDINGS: LIVER/GB: No calcified gallstones. No space occupying hepatic lesion. Biliary tree is of normal ca liber. PANCREAS: No inflammation. Soft tissue mass in the region of the pancreatic head measuring 5.0 x 3.3 cm. There is atrophic change of the remainder of the pancreas. SPLEEN: No splenic enlargement. No lesion seen. ADRENALS: No nodule. No thickening. KIDNEYS/BLADDER: No hydronephrosis. No nephrolithiasis. No disctinct renal mass. BOWEL: Normal appendix. Normal bowel caliber. No inflammation. GENITAL ORGANS: No gross abnormality. LYMPH NODES: No greater than 1cm abdominal or pelvic lymph nodes are appreciated. AORTA: No significant abnormality. OSSEOUS STRUCTURES: No significant abnormality is seen. OTHER: No significant additional abnormality is seen. IMPRESSION: 1. Soft tissue mass in the region of the pancreatic head measuring 5.0 x 3.3 cm. There is atrophic ch felix of the remainder of the pancreas. 2. No evidence for metastatic disease at this time.
== END | disposition home or self-care (01) ==
LOC: RADCTMAIN 14:37
PROVIDERS: ATTEND Internal Medicine Hematology & Oncology
DX: C25.0 Malignant neoplasm of head of pancreas (principal); K86.89 Other specified diseases of pancreas
CPT/HCPCS: 82565; 84520; 71260; 74177; 36415; Q9967

== ENCOUNTER → 2020-12-06 | Outpatient (CLI) | payer OTHER, BC ==
--- NOTE | 2020-12-10 10:17 | MM ---
Reason for exam: screening (asymptomatic). Last mammogram was performed 2 years and 3 months ago. History: Patient is postmenopausal and history of other cancer. Family history of breast cancer in paternal grandmother. Took hormonal contraceptives for 2 years. Physical Findings: A clinical breast exam by your physician is recommended on an annual basis and results should be correlated with mammographic findings. MG 3D Screening Mammo W/Cad Bilateral CC and MLO view(s) were taken. Prior study comparison: September 08, 2018, bilateral MG 3d screening mammo w/cad. February 05, 2016, mammogram, performed at [facility]. There are scattered fibroglandular densities. No significant changes when compared with prior studies. ASSESSMENT: Negative, BI-RAD 1 RECOMMENDATION: Routine screening mammogram of both breasts in 1 year.
== END | disposition home or self-care (01) ==
LOC: RADMAMWWP 07:02
PROVIDERS: ATTEND Obstetrics & Gynecology
DX: Z12.31 Encounter for screening mammogram for malignant neoplasm of breast (principal); Z78.0 Asymptomatic menopausal state; Z79.3 Long term (current) use of hormonal contraceptives; Z80.3 Family history of malignant neoplasm of breast
CPT/HCPCS: 77063; 77067

== ENCOUNTER → 2020-12-12 | Outpatient (CLI) | payer OTHER, BC ==
[2020-12-12 17:25] LABS: African American GFR (CKD) 68.8 (60.0-200.0); Calcium 9.6 mg/dL (8.7-10.3); Magnesium 1.6 mg/dL (1.5-2.4); Non-African American GFR(CKD) 59.3 (60.0-200.0); Potassium 4.7 mmol/L (3.5-5.5)
== END | disposition home or self-care (01) ==
LOC: LABWHC1 09:17
PROVIDERS: ATTEND Nurse Practitioner Adult Health
DX: I10 Essential (primary) hypertension (principal)
CPT/HCPCS: 36415; 80048; 83735

== ENCOUNTER → 2021-01-14 | Outpatient (CLI) | payer OTHER, BC ==
--- NOTE | 2021-01-22 13:52 | P.ARTDOP ---
Arterial Doppler LOWER EXTREMITY ARTERIAL DOPPLER: DATE OF SERVICE: 01/14/2021 Reason for study: Diabetes mellitus, rule out vascular disease.. Doppler waveforms: Multiphasic bilaterally throughout including excellent toe waveforms. Pulse volume recording: []. Pressure gradients: None. Ankle-brachial indices: Greater than 1 bilaterally. Toe brachial indices: 0.96 on the right, 0.99 on the left Impression: Normal study.
== END | disposition home or self-care (01) ==
LOC: RADUSWWP 13:17
PROVIDERS: ATTEND Internal Medicine Interventional Cardiology
DX: R25.2 Cramp and spasm (principal); Z85.07 Personal history of malignant neoplasm of pancreas
CPT/HCPCS: 93922

== ENCOUNTER 2021-02-13 16:41 | Emergency (ER) | payer OTHER, BC ==
[2021-02-13] MEDS ORDERED: SODIUM CHLORIDE 0.9% 1,000 ML IV STA (17:32)
--- NOTE | 2021-02-13 17:40 | ED ---
General Adult HPI - General Chief complaint: Fever Stated complaint: Fever Time Seen by Provider: 02/13/21 17:07 Source: patient Mode of arrival: ambulatory Limitations: no limitations - History of Present Illness Initial comments: 50 year-old female patient with history of pancreatic neuroendocrine tumors currently maintained on chemotherapy, presents to the emergency department for evaluation of fever. States temperature got up to 102 degrees today. She denies any other current symptoms. She did recently recover from an upper respiratory infection. She does have history of UTI and sepsis. She takes oral chemotherapy and gets an injection once per month. Dr. Gallardo is her oncologist. Patient denies any recent rash, fcough, shortness of breath, chest pain, abdominal pain, nausea, vomiting, diarrhea, constipation, back pain, numbness, tingling, dizziness, weakness, hematuria, dysuria, urinary urgency, urinary frequency, headache, visual changes, or any other complaints. - Related Data Home Medications Medication Instructions Recorded Confirmed lisinopriL [Zestril] 20 mg PO PC-SUPPER 12/29/13 02/13/21 Afinitor 10mg 10 mg PO DIRECTED 06/02/19 02/13/21 Octreotide Lar [SandoSTATIN LAR] 30 mg IM Q30D 06/02/19 02/13/21 metFORMIN HCL [Glucophage] 1,000 mg PO AC-SUPPER 02/15/20 02/13/21 metFORMIN HCL [Glucophage] 500 mg PO DAILY 02/15/20 02/13/21 Insulin Glargine,Hum.rec.anlog 16 unit SQ HS 02/13/21 02/13/21 [Basaglar Kwikpen U-100] amLODIPine [Norvasc] 5 mg PO DAILY 02/13/21 02/13/21 Allergies Allergy/AdvReac Type Severity Reaction Status Date / Time Penicillins Allergy Unknown Verified 02/13/21 18:17 Childhood Sulfa (Sulfonamide Allergy Rash/Hives Verified 02/13/21 18:17 Antibiotics) GANOLINIUM CONTRAST Allergy Unknown Uncoded 02/13/21 18:17 Review of Systems ROS Statement: Those systems with pertinent positive or pertinent negative responses have been documented in the HPI. ROS Other: All systems not noted in ROS Statement are negative. 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 orthopedic surgery john feet, c-sect x 1 Past Anesthesia/Blood Transfusion Reactions: No Reported Reaction Past Psychological History: No Psychological Hx Reported Smoking Status: Former smoker Past Alcohol Use History: Rare Past Drug Use History: None Reported - Past Family History Mother Family Medical History: No Reported History General Exam Limitations: no limitations ENT exam: Present: normal exam, normal oropharynx, mucous membranes moist Respiratory exam: Present: normal lung sounds bilaterally. Absent: respiratory distress, wheezes, rales, rhonchi, stridor Cardiovascular Exam: Present: normal rhythm, tachycardia, normal heart sounds. Absent: systolic murmur, diastolic murmur, rubs, gallop, clicks GI/Abdominal exam: Present: soft, normal bowel sounds. Absent: distended, tenderness, guarding, rebound, rigid Neurological exam: Present: alert, oriented X3, CN II-XII intact Psychiatric exam: Present: normal affect, normal mood Skin exam: Present: warm, dry, intact, normal color. Absent: rash Course Vital Signs 02/13/21 02/13/21 16:43 21:25 Temperature 100.0 F H 100.5 F H Pulse Rate 105 H 86 Respiratory 19 16 Rate Blood Pressure 163/93 175/102 O2 Sat by Pulse 96 100 Oximetry Medical Decision Making - Medical Decision Making 50 year-old female patient presented to the emergency department for evaluation of fever. Physical exam is unremarkable. Patient denies any other symptoms. Labs reviewed and showed normal WBC. No evidence for UTI. Chest xray negative. Blood cultures obtained and pending. I did discuss the case with alkylation operator oncologist Dr. Warren, discussed all lab findings, patient's current medication regimen, and chest xray results. Plan is to discharge home to follow up on Wednesday. I did discuss findings, results, and plan with patient. She is agreeable. Return parameters discussed in detail. She verbalizes understanding and agrees with this plan. Case discussed with my attending Dr. Hernandez. - Lab Data Result diagrams: 02/13/21 17:50 02/13/21 17:50 Lab Results 02/13/21 02/13/21 02/13/21 Range/Units 17:50 17:50 17:50 WBC 5.7 (3.8-10.6) k/uL RBC 3.98 (3.80-5.40) m/uL Hgb 10.3 L (11.4-16.0) gm/dL Hct 30.7 L (34.0-46.0) % MCV 77.2 L (80.0-100.0) fL MCH 25.8 (25.0-35.0) pg MCHC 33.5 (31.0-37.0) g/dL RDW 14.2 (11.5-15.5) % Plt Count 272 (150-450) k/uL MPV 6.9 Neutrophils % 82 % Lymphocytes % 12 % Monocytes % 4 % Eosinophils % 1 % Basophils % 1 % Neutrophils # 4.7 (1.3-7.7) k/uL Lymphocytes # 0.7 L (1.0-4.8) k/uL Monocytes # 0.2 (0-1.0) k/uL Eosinophils # 0.1 (0-0.7) k/uL Basophils # 0.0 (0-0.2) k/uL Sodium 136 L (137-145) mmol/L Potassium 4.1 (3.5-5.1) mmol/L Chloride 101 (98-107) mmol/L Carbon Dioxide 27 (22-30) mmol/L Anion Gap 8 mmol/L BUN 22 H (7-17) mg/dL Creatinine 1.08 H (0.52-1.04) mg/dL Est GFR (CKD-EPI)AfAm 70 (>60 ml/min/1.73 sqM) Est GFR (CKD-EPI)NonAf 61 (>60 ml/min/1.73 sqM) Glucose 148 H (74-99) mg/dL Plasma Lactic Acid Chavez (0.7-2.0) mmol/L Calcium 9.0 (8.4-10.2) mg/dL Total Bilirubin 0.6 (0.2-1.3) mg/dL AST 39 H (14-36) U/L ALT 43 H (4-34) U/L Alkaline Phosphatase 105 (38-126) U/L Total Protein 7.0 (6.3-8.2) g/dL Albumin 4.0 (3.5-5.0) g/dL Urine Color Colorless Urine Appearance Clear (Clear) Urine pH 6.0 (5.0-8.0) Ur Specific [place] 1.004 (1.001-1.035) Urine Protein Trace H (Negative) Urine Glucose (UA) Negative (Negative) Urine Ketones Negative (Negative) Urine Blood Large H (Negative) Urine Nitrite Negative (Negative) Urine Bilirubin Negative (Negative) Urine Urobilinogen <2.0 (<2.0) mg/dL Ur Leukocyte Esterase Small H (Negative) Urine RBC 9 H (0-5) /hpf Urine WBC 4 (0-5) /hpf Ur Squamous Epith Cells 1 (0-4) /hpf Urine Bacteria Rare H (None) /hpf Influenza Type A (PCR) (Not Detectd) Influenza Type B (PCR) (Not Detectd) RSV (PCR) (Not Detectd) SARS-CoV-2 (PCR) (Not Detectd) 02/13/21 02/13/21 Range/Units 17:50 17:50 WBC (3.8-10.6) k/uL RBC (3.80-5.40) m/uL Hgb (11.4-16.0) gm/dL Hct (34.0-46.0) % MCV (80.0-100.0) fL MCH (25.0-35.0) pg MCHC (31.0-37.0) g/dL RDW (11.5-15.5) % Plt Count (150-450) k/uL MPV Neutrophils % % Lymphocytes % % Monocytes % % Eosinophils % % Basophils % % Neutrophils # (1.3-7.7) k/uL Lymphocytes # (1.0-4.8) k/uL Monocytes # (0-1.0) k/uL Eosinophils # (0-0.7) k/uL Basophils # (0-0.2) k/uL Sodium (137-145) mmol/L Potassium (3.5-5.1) mmol/L Chloride (98-107) mmol/L Carbon Dioxide (22-30) mmol/L Anion Gap mmol/L BUN (7-17) mg/dL Creatinine (0.52-1.04) mg/dL Est GFR (CKD-EPI)AfAm (>60 ml/min/1.73 sqM) Est GFR (CKD-EPI)NonAf (>60 ml/min/1.73 sqM) Glucose (74-99) mg/dL Plasma Lactic Acid Chavez 1.3 (0.7-2.0) mmol/L Calcium (8.4-10.2) mg/dL Total Bilirubin (0.2-1.3) mg/dL AST (14-36) U/L ALT (4-34) U/L Alkaline Phosphatase (38-126) U/L Total Protein (6.3-8.2) g/dL Albumin (3.5-5.0) g/dL Urine Color Urine Appearance (Clear) Urine pH (5.0-8.0) Ur Specific [place] (1.001-1.035) Urine Protein (Negative) Urine Glucose (UA) (Negative) Urine Ketones (Negative) Urine Blood (Negative) Urine Nitrite (Negative) Urine Bilirubin (Negative) Urine Urobilinogen (<2.0) mg/dL Ur Leukocyte Esterase (Negative) Urine RBC (0-5) /hpf Urine WBC (0-5) /hpf Ur Squamous Epith Cells (0-4) /hpf Urine Bacteria (None) /hpf Influenza Type A (PCR) Not Detected (Not Detectd) Influenza Type B (PCR) Not Detected (Not Detectd) RSV (PCR) Not Detected (Not Detectd) SARS-CoV-2 (PCR) Not Detected (Not Detectd) - Radiology Data Radiology results: report reviewed, image reviewed Two-view x-ray of the chest is obtained. Report was reviewed in its entirety. Impression by Dr. Liao how he shows no focal airspace disease, pneumothorax, pleural effusion. Normal cardiomediastinal silhouette. No acute fracture dislocation. Left upper quadrant colonic stool noted. Disposition Clinical Impression: Fever Disposition: HOME SELF-CARE Condition: Good Instructions (If sedation given, give patient instructions): Fever in Adults (ED) Additional Instructions: Continue taking Tylenol Motrin for fever control. Follow-up with your primary care physician and oncologist on Wednesday. Return to the emergency department immediately if fever persists or he develop any new symptoms. Is patient prescribed a controlled substance at d/c from ED?: No Referrals: Esa Keller DO [Primary Care Provider] - 1-2 days Time of Disposition: :28
[2021-02-13 18:04] LABS: Basophils % (A) 1 %; Eosinophils # (A) 0.1 k/uL (0-0.7); Eosinophils % (A) 1 %; HCT 30.7 % (34.0-46.0); HGB 10.3 gm/dL (11.4-16.0); Lymphocytes # (A) 0.7 k/uL (1.0-4.8); Lymphocytes % (A) 12 %; MCH 25.8 pg (25.0-35.0); MCHC 33.5 g/dL (31.0-37.0); MCV 77.2 fL (80.0-100.0); Mean Platelet Volume 6.9; Monocytes # (A) 0.2 k/uL (0-1.0); Monocytes % (A) 4 %; Neutrophils # (A) 4.7 k/uL (1.3-7.7); Neutrophils % (A) 82 %; Platelet Count 272 k/uL (150-450); RBC 3.98 m/uL (3.80-5.40); RDW 14.2 % (11.5-15.5); WBC 5.7 k/uL (3.8-10.6)
[2021-02-13 18:17] LABS: Potassium 4.1 mmol/L (3.5-5.1); Total Bilirubin 0.6 mg/dL (0.2-1.3)
[2021-02-13 20:34] LABS: Appearance,Urine Clear (Clear); Bacteria,Urine Rare /hpf; Bilirubin,Urine Negative (Negative); Blood,Urine Large (Negative); Color,Urine Colorless; Glucose,Urine (UA) Negative (Negative); Ketones,Urine Negative (Negative); Leukocyte Esterase,Urine Small (Negative); Nitrite,Urine Negative (Negative); Protein,Urine Trace (Negative); RBC,Urine 9 /hpf (0-5); Specific Gravity,Urine 1.004 (1.001-1.035); Squamous Epithelial Cell,Urine 1 /hpf (0-4); Urobilinogen,Urine <2.0 mg/dL (<2.0); WBC,Urine 4 /hpf (0-5)
--- NOTE | 2021-02-13 20:39 | XR ---
EXAMINATION TYPE: XR chest 2V DATE OF EXAM: 02/13/2021 COMPARISON: 11/28/2020 HISTORY: 50 years Female. STUDY INDICATION GIVEN: Fever . TECHNIQUE: Frontal lateral chest radiographs IMPRESSION: No focal airspace disease, pneumothorax or pleural effusion. Normal cardiomediastinal silhouette. No acute fracture or dislocation. Left upper quadrant colonic stool noted.
[2021-02-13 21:26] VITALS: BP 175/102; PULSE 86; RESP 16; TEMP 100.5
== END 2021-02-13 21:43 | disposition home or self-care (01) ==
LOC: EC 16:41
DX: R50.9 Fever, unspecified (principal); E11.9 Type 2 diabetes mellitus without complications; I10 Essential (primary) hypertension; Z79.4 Long term (current) use of insulin; Z79.899 Other long term (current) drug therapy; Z87.891 Personal history of nicotine dependence; Z88.0 Allergy status to penicillin; Z88.2 Allergy status to sulfonamides; Z88.8 Allergy status to other drugs, medicaments and biological substances; Z85.07 Personal history of malignant neoplasm of pancreas
CPT/HCPCS: 36415; 71046; 80053; 81001; 83605; 85025; 87040; 87636; 96360; 99283

== ENCOUNTER 2021-02-26 22:43 | Emergency (ER) | payer OTHER, BC ==
[2021-02-26] MEDS ORDERED: SODIUM CHLORIDE 0.9% 1,000 ML IV STA (23:01)
[2021-02-26] MEDS ORDERED: IBUPROFEN 600 MG TAB PO STA (23:01)
[2021-02-26] MEDS ORDERED: ACETAMINOPHEN TAB 500 MG TAB PO STA (23:01)
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
[2021-02-26 23:45] LABS: Basophils % (A) 0 %; Eosinophils # (A) 0.1 k/uL (0-0.7); Eosinophils % (A) 2 %; HCT 30.2 % (34.0-46.0); HGB 10.2 gm/dL (11.4-16.0); Lymphocytes # (A) 0.9 k/uL (1.0-4.8); Lymphocytes % (A) 15 %; MCH 25.7 pg (25.0-35.0); MCHC 33.8 g/dL (31.0-37.0); MCV 76.2 fL (80.0-100.0); Mean Platelet Volume 7.4; Monocytes # (A) 0.2 k/uL (0-1.0); Monocytes % (A) 4 %; Neutrophils # (A) 4.6 k/uL (1.3-7.7); Neutrophils % (A) 79 %; Platelet Count 234 k/uL (150-450); RBC 3.96 m/uL (3.80-5.40); RDW 13.8 % (11.5-15.5); WBC 5.8 k/uL (3.8-10.6)
--- NOTE | 2021-02-26 23:54 | XR ---
EXAMINATION TYPE: XR chest 1V portable DATE OF EXAM: 02/26/2021 COMPARISON: NONE HISTORY: Fever and headache TECHNIQUE: 2 view FINDINGS: There is no heart failure nor confluent pneumonic infiltrate. Costophrenic angles are clear . There are no hilar masses. Bony thorax is intact. IMPRESSION: Normal chest.
[2021-02-26 23:58] LABS: Albumin 3.9 g/dL (3.5-5.0); C Reactive Protein 5.1 mg/dL (<1.0); Calcium 8.8 mg/dL (8.4-10.2); Potassium 4.1 mmol/L (3.5-5.1); Total Bilirubin 0.3 mg/dL (0.2-1.3); Total Protein 7.1 g/dL (6.3-8.2)
[2021-02-27 00:11] LABS: Appearance,Urine Clear (Clear); Bacteria,Urine Rare /hpf; Bilirubin,Urine Negative (Negative); Blood,Urine Moderate (Negative); Color,Urine Colorless; Glucose,Urine (UA) Negative (Negative); Ketones,Urine Negative (Negative); Leukocyte Esterase,Urine Negative (Negative); Nitrite,Urine Negative (Negative); Protein,Urine Negative (Negative); RBC,Urine 17 /hpf (0-5); Specific Gravity,Urine 1.004 (1.001-1.035); Squamous Epithelial Cell,Urine 2 /hpf (0-4); Urobilinogen,Urine <2.0 mg/dL (<2.0); WBC,Urine 1 /hpf (0-5)
[2021-02-27 00:40] VITALS: BP 157/98; PULSE 93; RESP 20; TEMP 99.6
[2021-02-27] MEDS ORDERED: VANCOMYCIN IV PER PHARMACY 1 EACH MISC MISCELLANE PRN (01:06)
[2021-02-27] MEDS ORDERED: VANCOMYCIN 1,500 MG in SODIUM CHLORIDE 0.9% 250 ML IVPB ONE (01:15)
[2021-02-27] MEDS ORDERED: cefTRIAXone IN SWFI 1,000 MG/10 ML SYRINGE IVP STA (01:40)
[2021-02-27] MEDS ORDERED: SULFAMETHOX-TMP 800-160MG 1 EACH TAB PO STA (01:40)
[2021-02-27] MEDS ORDERED: SULFAMETH-TMP DS STARTER PACK 2 TAB BTL PO STA (01:40)
[2021-02-27] MEDS ORDERED: CEPHALEXIN 500MG STARTER PACK 4 CAP BTL PO STA (01:40)
[2021-02-27] MEDS ORDERED: VANCOMYCIN 1,500 MG in SODIUM CHLORIDE 0.9% 250 ML IVPB SCH (18:00)
== END 2021-02-27 02:17 | disposition home or self-care (01) ==
LOC: EC 22:43
DX: L03.114 Cellulitis of left upper limb (principal); E11.9 Type 2 diabetes mellitus without complications; I10 Essential (primary) hypertension; Z79.4 Long term (current) use of insulin; Z79.899 Other long term (current) drug therapy; Z87.891 Personal history of nicotine dependence; Z88.0 Allergy status to penicillin; Z88.2 Allergy status to sulfonamides; Z88.8 Allergy status to other drugs, medicaments and biological substances; Z85.07 Personal history of malignant neoplasm of pancreas
CPT/HCPCS: 36415; 71045; 80053; 81001; 83605; 83615; 85025; 86140; 87040; 96361; 96374; 99283

== ENCOUNTER 2021-03-05 22:48 | Inpatient (IN) | payer OTHER, BC ==
[2021-03-05] MEDS ORDERED: FAMOTIDINE 20 MG/2 ML VIAL IV STA (23:54)
[2021-03-05] MEDS ORDERED: SODIUM CHLORIDE 0.9% 500 ML 500 ML IV ONE (23:54)
[2021-03-06 00:45] LABS: Appearance,Urine Cloudy (Clear); Bacteria,Urine Rare /hpf; Bilirubin,Urine Negative (Negative); Blood,Urine Large (Negative); Color,Urine Yellow; Glucose,Urine (UA) Negative (Negative); Hyaline Casts,Urine 6 /lpf (0-2); Ketones,Urine Negative (Negative); Leukocyte Esterase,Urine Negative (Negative); Mucus,Urine Rare /hpf; Nitrite,Urine Negative (Negative); PH, Urine 5.5 (5.0-8.0); Protein,Urine 1+ (Negative); RBC,Urine 54 /hpf (0-5); Specific Gravity,Urine 1.019 (1.001-1.035); Squamous Epithelial Cell,Urine <1 /hpf (0-4); Urobilinogen,Urine <2.0 mg/dL (<2.0); WBC,Urine 4 /hpf (0-5)
[2021-03-06 00:46] LABS: HGB 9.3 gm/dL (11.4-16.0); MCH 24.9 pg (25.0-35.0); MCHC 33.1 g/dL (31.0-37.0); MCV 75.2 fL (80.0-100.0); Mean Platelet Volume 7.5; Microcytosis Slight; Platelet Count 173 k/uL (150-450); RBC 3.73 m/uL (3.80-5.40); RDW 13.7 % (11.5-15.5); WBC 7.6 k/uL (3.8-10.6)
[2021-03-06 00:50] LABS: Albumin 3.6 g/dL (3.5-5.0); Calcium 8.5 mg/dL (8.4-10.2); Potassium 4.2 mmol/L (3.5-5.1); Total Bilirubin 0.5 mg/dL (0.2-1.3); Total Protein 6.7 g/dL (6.3-8.2)
--- NOTE | 2021-03-06 01:02 | ED ---
General Adult HPI - General Chief complaint: Fever Stated complaint: Fever Time Seen by Provider: 03/05/21 23:20 Source: patient Mode of arrival: ambulatory Limitations: no limitations - History of Present Illness Initial comments: 50 year-old female patient with history of neuroendocrine tumor to the pancreas with mets to liver and lower spine, presents to the emergency department for evaluation of fever. Patient states that she was recently diagnosed with cellulitis and started on keflex and bactrim. States that she had to stop taking the bactrim due to an allergic reaction and her fever spiked again today. She states the area of infection does appear better. She denies nausea or vomiting. Denies diarrhea. She is maintained on oral chemo but did not take it today. She does have history of diabetes as well. - Related Data Home Medications Medication Instructions Recorded Confirmed lisinopriL [Zestril] 20 mg PO PC-SUPPER 12/29/13 02/13/21 Afinitor 10mg 10 mg PO DIRECTED 06/02/19 02/13/21 Octreotide Lar [SandoSTATIN LAR] 30 mg IM Q30D 06/02/19 02/13/21 metFORMIN HCL [Glucophage] 1,000 mg PO AC-SUPPER 02/15/20 02/13/21 metFORMIN HCL [Glucophage] 500 mg PO DAILY 02/15/20 02/13/21 Insulin Glargine,Hum.rec.anlog 16 unit SQ HS 02/13/21 02/13/21 [Basaglar Kwikpen U-100] amLODIPine [Norvasc] 5 mg PO DAILY 02/13/21 02/13/21 Previous Rx's Medication Instructions Recorded Cephalexin [Keflex] 500 mg PO Q6HR #40 cap 02/27/21 Sulfamethox-Tmp 800-160Mg [Bactrim 2 tab PO BID #40 tab 02/27/21 DS 800-160 mg] Allergies Allergy/AdvReac Type Severity Reaction Status Date / Time Penicillins Allergy Unknown Verified 03/05/21 22:50 Childhood Sulfa (Sulfonamide Allergy Rash/Hives Verified 03/05/21 22:50 Antibiotics) GANOLINIUM CONTRAST Allergy Unknown Uncoded 03/05/21 22:50 Review of Systems ROS Statement: Those systems with pertinent positive or pertinent negative responses have been documented in the HPI. ROS Other: All systems not noted in ROS Statement are negative. 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 orthopedic surgery john feet, c-sect x 1 Past Anesthesia/Blood Transfusion Reactions: No Reported Reaction Past Psychological History: No Psychological Hx Reported Smoking Status: Former smoker Past Alcohol Use History: Rare Past Drug Use History: None Reported - Past Family History Mother Family Medical History: No Reported History General Exam Limitations: no limitations General appearance: alert, in no apparent distress, other (Physical well- developed, well-nourished adult female patient in no acute distress.) Eye exam: Present: normal appearance, PERRL, EOMI. Absent: scleral icterus, conjunctival injection, periorbital swelling ENT exam: Present: normal exam, normal oropharynx, mucous membranes moist Respiratory exam: Present: normal lung sounds bilaterally. Absent: respiratory distress, wheezes, rales, rhonchi, stridor Cardiovascular Exam: Present: regular rate, normal rhythm, normal heart sounds. Absent: systolic murmur, diastolic murmur, rubs, gallop, clicks GI/Abdominal exam: Present: soft, normal bowel sounds. Absent: distended, tenderness, guarding, rebound, rigid Neurological exam: Present: alert, oriented X3, CN II-XII intact Psychiatric exam: Present: normal affect, normal mood Skin exam: Present: warm, dry, intact, normal color. Absent: rash Course Vital Signs 03/05/21 03/05/21 03/06/21 22:51 23:51 02:00 Temperature 101.3 F H 99.0 F Pulse Rate 92 87 Respiratory 20 18 Rate Blood Pressure 121/82 96/57 O2 Sat by Pulse 96 98 Oximetry Medical Decision Making - Medical Decision Making 50-year-old female patient presents to the emergency department today for evaluation of fever. She has history of pancreatic cancer currently maintained on oral chemotherapy. Recent and antibiotics for cellulitis of the left arm. Physical examination today is unremarkable. Labs reviewed and revealed normal white blood cell count is 7.6, hemoglobin 9.3. She has acute kidney injury with BUN of 28 and creatinine 2.17. Urinalysis did show red blood cells. COVID-19 was negative. I did discuss findings and results with her. Given history will admit to the hospital with IV antibiotics, IV fluids, further evaluation by her oncologist. She is agreeable with this plan. My attending is Dr. Rivas. - Lab Data Result diagrams: 03/06/21 00:31 03/06/21 00:31 Lab Results 03/06/21 03/06/21 03/06/21 Range/Units 00:31 00:31 00:31 WBC 7.6 (3.8-10.6) k/uL RBC 3.73 L (3.80-5.40) m/uL Hgb 9.3 L (11.4-16.0) gm/dL Hct 28.0 L (34.0-46.0) % MCV 75.2 L (80.0-100.0) fL MCH 24.9 L (25.0-35.0) pg MCHC 33.1 (31.0-37.0) g/dL RDW 13.7 (11.5-15.5) % Plt Count 173 (150-450) k/uL MPV 7.5 Neutrophils % (Manual) 63 % Band Neuts % (Manual) 23 % Lymphocytes % (Manual) 10 % Monocytes % (Manual) 4 % Neutrophils # (Manual) 6.50 (1.3-7.7) k/uL Lymphocytes # (Manual) 0.76 L (1.0-4.8) k/uL Monocytes # (Manual) 0.30 (0-1.0) k/uL Nucleated RBCs 0 (0-0) /100 WBC Manual Slide Review Performed Poikilocytosis (manual Present Microcytosis Slight Sodium 132 L (137-145) mmol/L Potassium 4.2 (3.5-5.1) mmol/L Chloride 101 (98-107) mmol/L Carbon Dioxide 20 L (22-30) mmol/L Anion Gap 11 mmol/L BUN 28 H (7-17) mg/dL Creatinine 2.17 H (0.52-1.04) mg/dL Est GFR (CKD-EPI)AfAm 30 (>60 ml/min/1.73 sqM) Est GFR (CKD-EPI)NonAf 26 (>60 ml/min/1.73 sqM) Glucose 137 H (74-99) mg/dL Plasma Lactic Acid Chavez (0.7-2.0) mmol/L Calcium 8.5 (8.4-10.2) mg/dL Total Bilirubin 0.5 (0.2-1.3) mg/dL AST 23 (14-36) U/L ALT 23 (4-34) U/L Alkaline Phosphatase 91 (38-126) U/L Total Protein 6.7 (6.3-8.2) g/dL Albumin 3.6 (3.5-5.0) g/dL Urine Color Yellow Urine Appearance Cloudy H (Clear) Urine pH 5.5 (5.0-8.0) Ur Specific [place] 1.019 (1.001-1.035) Urine Protein 1+ H (Negative) Urine Glucose (UA) Negative (Negative) Urine Ketones Negative (Negative) Urine Blood Large H (Negative) Urine Nitrite Negative (Negative) Urine Bilirubin Negative (Negative) Urine Urobilinogen <2.0 (<2.0) mg/dL Ur Leukocyte Esterase Negative (Negative) Urine RBC 54 H (0-5) /hpf Urine WBC 4 (0-5) /hpf Ur Squamous Epith Cells <1 (0-4) /hpf Urine Bacteria Rare H (None) /hpf Hyaline Casts 6 H (0-2) /lpf Urine Mucus Rare H (None) /hpf Coronavirus (PCR) (Not Detectd) 03/06/21 03/06/21 Range/Units 00:31 01:31 WBC (3.8-10.6) k/uL RBC (3.80-5.40) m/uL Hgb (11.4-16.0) gm/dL Hct (34.0-46.0) % MCV (80.0-100.0) fL MCH (25.0-35.0) pg MCHC (31.0-37.0) g/dL RDW (11.5-15.5) % Plt Count (150-450) k/uL MPV Neutrophils % (Manual) % Band Neuts % (Manual) % Lymphocytes % (Manual) % Monocytes % (Manual) % Neutrophils # (Manual) (1.3-7.7) k/uL Lymphocytes # (Manual) (1.0-4.8) k/uL Monocytes # (Manual) (0-1.0) k/uL Nucleated RBCs (0-0) /100 WBC Manual Slide Review Poikilocytosis (manual Microcytosis Sodium (137-145) mmol/L Potassium (3.5-5.1) mmol/L Chloride (98-107) mmol/L Carbon Dioxide (22-30) mmol/L Anion Gap mmol/L BUN (7-17) mg/dL Creatinine (0.52-1.04) mg/dL Est GFR (CKD-EPI)AfAm (>60 ml/min/1.73 sqM) Est GFR (CKD-EPI)NonAf (>60 ml/min/1.73 sqM) Glucose (74-99) mg/dL Plasma Lactic Acid [place]avez 1.2 (0.7-2.0) mmol/L Calcium (8.4-10.2) mg/dL Total Bilirubin (0.2-1.3) mg/dL AST (14-36) U/L ALT (4-34) U/L Alkaline Phosphatase (38-126) U/L Total Protein (6.3-8.2) g/dL Albumin (3.5-5.0) g/dL Urine Color Urine Appearance (Clear) Urine pH (5.0-8.0) Ur Specific [place] (1.001-1.035) Urine Protein (Negative) Urine Glucose (UA) (Negative) Urine Ketones (Negative) Urine Blood (Negative) Urine Nitrite (Negative) Urine Bilirubin (Negative) Urine Urobilinogen (<2.0) mg/dL Ur Leukocyte Esterase (Negative) Urine RBC (0-5) /hpf Urine WBC (0-5) /hpf Ur Squamous Epith Cells (0-4) /hpf Urine Bacteria (None) /hpf Hyaline Casts (0-2) /lpf Urine Mucus (None) /hpf Coronavirus (PCR) Not Detected (Not Detectd) Disposition Clinical Impression: Fever, Acute kidney injury, Allergic reaction to sulfonamide Disposition: ADMITTED IP TO THIS [facility] Condition: Serious Referrals: Esa Keller DO [Primary Care Provider] - 1-2 days Decision to Admit Reason: Admit from EC Decision Date: 03/06/21 Decision Time: 01:23
[2021-03-06] MEDS ORDERED: NALOXONE 0.4 MG/ML 1 ML VIAL IV PRN (01:18)
[2021-03-06] MEDS ORDERED: ACETAMINOPHEN TAB 325 MG TAB PO PRN (01:18)
[2021-03-06] MEDS ORDERED: VANCOMYCIN IV PER PHARMACY 1 EACH MISC MISCELLANE PRN (01:20)
[2021-03-06] MEDS ORDERED: CEFEPIME 2 GM in SODIUM CHLORIDE 0.9% 100 ML IVPB STA (01:20)
[2021-03-06] MEDS ORDERED: CEFEPIME 2 GM in SODIUM CHLORIDE 0.9% 100 ML IVPB ONE (01:26)
[2021-03-06 01:32] LABS: Band Neutrophils % 23 %; Lymphocytes # (M) 0.76 k/uL (1.0-4.8); Neutrophils % (M) 63 %; Nucleated Red Blood Cells 0 /100 WBC (0-0); Poikilocytosis (M) Present; Total Cells Counted 100
[2021-03-06] MEDS: SODIUM CHLORIDE 0.9% 1,000 ML IV SCH ×3 (01:42→22:30)
[2021-03-06] MEDS ORDERED: VANCOMYCIN 1,500 MG in SODIUM CHLORIDE 0.9% 250 ML IVPB ONE (02:00)
[2021-03-06] MEDS ORDERED: diphenhydrAMINE 50 MG/ML 1 ML VIAL IVP PRN (03:12)
[2021-03-06 07:31] LABS: Glucose,Whole Blood 165 mg/dL (75-99)
[2021-03-06] MEDS ORDERED: amLODIPine 5 MG TAB PO SCH (09:00)
[2021-03-06] MEDS ORDERED: FAMOTIDINE 20 MG/2 ML VIAL IV SCH (09:00)
[2021-03-06 13:58] LABS: Glucose,Whole Blood 244 mg/dL (75-99)
[2021-03-06] MEDS: INSULIN ASPART (NovoLOG) 100 UNIT/ML VIAL SQ SCH ×2 (14:51→22:31)
--- NOTE | 2021-03-06 15:55 | P.CONS ---
History of Present Illness - Reason for Consult Consult date: 03/06/21 fever Requesting physician: Lorena Banuelos - Chief Complaint fever - History of Present Illness Pt is a very pleasant female pt of Dr. 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 She presented to Dr. Keller with RUQ nagging discomfort. CT abdomen performed, revealing vague density in head of pancreas. She had EUS and bx, no malignancy. She was then seen by Dr. Green, MRI of pancreas performed. She had Whipple procedure on 07/06/12. 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 Her only carcinoid symptom was intermittent diarrhea for last 2 years of uncertain etiology. She had normal octereotide scan and chromogranin level. MRI of abdomen done at [facility] was WNL. She did ok from the cancer standpoint until 10/07/16, CT showed slight progression of liver lesions, octereotide scan + liver mets. Started on sandostatin. 11/2018 bone mets. Afinitor added to regimen. She did have some radiation, she had reaction to xgeva. 06/29 was hospitalized at [facility] with abdominal pain, found to have partial SBO, relieved rapidly with conservative measures. She was evaluated by Dr. Jones at [facility], no intervention advised. 02/26 inpatient for temp of 104F, she was worked up, no source found, suspect UTI/urosepsis. 12/28MRI at [place], can't see liver mets nor pancreatic lesion. She recently burned her arm taking somting out of the oven, the area became infected, she was treated with 2 antibiotics for suspected cellulitis of left forearm. She couldn't tolerate the bactrim so she stopped it-she was having allergic reaction with hives-but she aslo was having nausea, upset stomach, inability to tolerate oral intake. She had a 101.4 F fever and was encouraged by her to come to ER. Her hives are clearing up, she is now starting to tolerate latrice intake, no fever since admit. No other c/o to report. Review of Systems 14 point ROS is neg except as stated in HPI Past Medical History Past Medical History: Cancer, Chest Pain / Angina, Diabetes Mellitus, Hypertension Additional Past Medical History / Comment(s): hx neuroendocrine tumor, liver lesions, heart murmur, pancreatic cancer with metastasis to liver and lower vertebrae, plantar fascitis History of Any Multi-Drug Resistant Organisms: None Reported Past Surgical History: Section, Orthopedic Surgery Additional Past Surgical History / Comment(s): whipple and tumor removed. orthopedic surgery john feet, c-sect x 1 Past Anesthesia/Blood Transfusion Reactions: No Reported Reaction Past Psychological History: No Psychological Hx Reported Smoking Status: Former smoker Past Alcohol Use History: Rare Past Drug Use History: None Reported - Past Family History Mother Family Medical History: No Reported History Medications and Allergies Home Medications Medication Instructions Recorded Confirmed Type lisinopriL [Zestril] 20 mg PO PC-SUPPER 12/29/13 03/06/21 History Afinitor 10mg 10 mg PO DIRECTED 06/02/19 03/06/21 History Octreotide Lar [SandoSTATIN LAR] 30 mg IM QMONTHLY 06/02/19 03/06/21 History metFORMIN HCL [Glucophage] 1,000 mg PO AC-SUPPER 02/15/20 03/06/21 History metFORMIN HCL [Glucophage] 500 mg PO DAILY 02/15/20 03/06/21 History Insulin Glargine,Hum.rec.anlog 16 unit SQ HS 02/13/21 03/06/21 History [Basaglar Kwikpen U-100] amLODIPine [Norvasc] 5 mg PO DAILY 02/13/21 03/06/21 History Cephalexin [Keflex] 500 mg PO Q6HR #40 cap 02/27/21 03/06/21 Rx Allergies Allergy/AdvReac Type Severity Reaction Status Date / Time erythromycin base Allergy Unknown Verified 03/06/21 07:16 Penicillins Allergy Unknown Verified 03/06/21 07:16 Childhood Sulfa (Sulfonamide Allergy Rash/Hives Verified 03/06/21 07:16 Antibiotics) sulfamethoxazole Allergy rash/hives/ Verified 03/06/21 07:16 [From Bactrim] ROSELIA/weaknes s trimethoprim [From Bactrim] Allergy rash/hives/ Verified 03/06/21 07:16 ROSELIA/weaknes s GANOLINIUM CONTRAST Allergy Unknown Uncoded 03/05/21 22:50 Physical Exam Vitals: Vital Signs Temp Pulse Resp BP Pulse Ox 03/06/21 09:57 77 16 109/71 100 03/06/21 07:32 98.2 F 77 18 118/74 97 03/06/21 06:44 75 18 98/65 99 03/06/21 04:07 98.1 F 71 18 96/65 97 03/06/21 02:00 87 18 96/57 98 03/05/21 23:51 99.0 F 03/05/21 22:51 101.3 F H 92 20 121/82 96 - Constitutional General appearance: average body habitus, cooperative, no acute distress - EENT Eyes: anicteric sclerae, EOMI ENT: hearing grossly normal, normal oropharynx - Neck Neck: no lymphadenopathy - Respiratory Respiratory: bilateral: CTA - Cardiovascular Rhythm: regular Heart sounds: normal: S1, S2 Abnormal Heart Sounds: no systolic murmur, no diastolic murmur, no rub, no S3 Gallop, no S4 Gallop, no click, no other leg Peripheral Edema: bilateral: None - Gastrointestinal General gastrointestinal: no absent bowel sounds, no decreased bowel sounds, no distended, no hepatomegaly, no hyperactive bowel sounds, normal bowel sounds, no organomegaly, no rigid, no scaphoid, soft, no splenomegaly, no tenderness, no umbilical hernia, no ventral hernia - Integumentary left forearm 6in area of epidermal redness from a burn, nothing open, no blisters. Pt does have faint hives on the back and upper arms (likely from sulfa allergy?) - Neurologic Neurologic: CNII-XII intact - Musculoskeletal Musculoskeletal: strength equal bilaterally - Psychiatric Psychiatric: A&O x's 3, appropriate affect, intact judgment & insight Results CBC & Chem 7: 03/06/21 00:31 03/06/21 00:31 Labs: Abnormal Lab Results - Last 24 Hours (Table) 03/06/21 03/06/21 03/06/21 Range/Units 00:31 00:31 00:31 RBC 3.73 L (3.80-5.40) m/uL Hgb 9.3 L (11.4-16.0) gm/dL Hct 28.0 L (34.0-46.0) % MCV 75.2 L (80.0-100.0) fL MCH 24.9 L (25.0-35.0) pg Lymphocytes # (Manual) 0.76 L (1.0-4.8) k/uL Sodium 132 L (137-145) mmol/L Carbon Dioxide 20 L (22-30) mmol/L BUN 28 H (7-17) mg/dL Creatinine 2.17 H (0.52-1.04) mg/dL Glucose 137 H (74-99) mg/dL POC Glucose (mg/dL) (75-99) mg/dL Urine Appearance Cloudy H (Clear) Urine Protein 1+ H (Negative) Urine Blood Large H (Negative) Urine RBC 54 H (0-5) /hpf Urine Bacteria Rare H (None) /hpf Hyaline Casts 6 H (0-2) /lpf Urine Mucus Rare H (None) /hpf 03/06/21 03/06/21 Range/Units 07:29 13:54 RBC (3.80-5.40) m/uL Hgb (11.4-16.0) gm/dL Hct (34.0-46.0) % MCV (80.0-100.0) fL MCH (25.0-35.0) pg Lymphocytes # (Manual) (1.0-4.8) k/uL Sodium (137-145) mmol/L Carbon Dioxide (22-30) mmol/L BUN (7-17) mg/dL Creatinine (0.52-1.04) mg/dL Glucose (74-99) mg/dL POC Glucose (mg/dL) 165 H 244 H (75-99) mg/dL Urine Appearance (Clear) Urine Protein (Negative) Urine Blood (Negative) Urine RBC (0-5) /hpf Urine Bacteria (None) /hpf Hyaline Casts (0-2) /lpf Urine Mucus (None) /hpf Assessment and Plan (1) Acute kidney injury Current Visit: Yes Status: Acute Priority: High Code(s): N17.9 - ACUTE KIDNEY FAILURE, UNSPECIFIED SNOMED Code(s): 00601459 (2) Allergic reaction to sulfonamide Current Visit: Yes Status: Acute Priority: High Code(s): T37.0X1A - POISONING BY SULFONAMIDES, ACCIDENTAL (UNINTENTIONAL), INIT SNOMED Code(s): 17563546881281052 (3) Fever Current Visit: Yes Status: Acute Priority: High Code(s): R50.9 - FEVER, UNSPECIFIED SNOMED Code(s): 307395228 (4) Neuroendocrine tumor of pancreas Narrative/Plan: Hold afinitor until antibiotic course complete Current Visit: No Status: Chronic Priority: Low Code(s): D3A.8 - OTHER BENIGN NEUROENDOCRINE TUMORS SNOMED Code(s): 178121368 Plan: Pt symptoms are r/t reaction to sulfa drug (bactrim). This has been stopped. It is documented as an allergy. Acute kidney injury likely 2/2 dehydration since pt was vomiting and having diarrhea and bactrim. She is being hydrated, nausea is better and she is tolerating oral intake. Abx have been adjusted for treatment of her cellulitis Dr attests: I have performed H&P, seen and examined pt, developed impression and plan of care. Discussed with dictator. Agree with dictated note, documented as a scribe.
[2021-03-06] MEDS ORDERED: metFORMIN 500 MG TAB PO SCH (17:30)
[2021-03-06] MEDS ORDERED: lisinopriL 20 MG TAB PO SCH (18:30)
--- NOTE | 2021-03-06 20:09 | P.HPIM ---
History of Present Illness H&P Date: 03/06/21 Chief Complaint: Fever History of presenting complaint: This is a pleasant 50-year-old patient of Dr. Keller. Oncologist Dr. tay pope. Diagnosed with pancreatic cancer and about 8 years ago. During a routine ultrasound. Underwent Whipple's procedure. About 3 years ago had metastatic systems the liver and/or vertebra. On maintenance chemotherapy pill doing this well with the same. Last PET scan not too long ago done by her oncologist showed that the metastatic to the shrinking. Patient presented to ER on February 26. Was found to have left arm cellulitis. Was discharged on Bactrim and Keflex. Her left arm lesion which is looking pretty rough she describes Acticort significantly better. Yesterday she developed some weakness some shortness of breath some dizziness. Slight rash. She called her family doctor's office. Those conservative this was an ALLERGIC reaction. Told to hold off the Bactrim and decided to come to the ER. Had a fever yet of 101.3. Patient denies any respiratory urinary symptoms. Left arm lesion/cellulitis is actually better. Her appetite is okay. Review of systems: GEN.: Fever tired EYES: None HEENT: None NECK: None RESPIRATORY: None CARDIOVASCULAR: None GASTROINTESTINAL: None GENITOURINARY: None MUSCULOSKELETAL: None LYMPHATICS: None HEMATOLOGICAL: None PSYCHIATRY: None NEUROLOGICAL: None. DERMATOLOGICAL: Left forearm cellulitis improving Past medical history to include: Diabetes mellitus type 2, hypertension, or endocrine tumor, liver lesions, pancreatic cancer metastatic systems the liver and lower vertebra, plantar fasciitis Social history: Patient smoked for about 10-12 years, half a pack a day stopped her age of 27. Alcohol rarely. Family history: Reviewed, noncontributory to presentation Physical examination: VITAL SIGNS: 11.3, 92, 20, 121/82, 96% on room air GENERAL: BMI 33.4, laying in bed, comfortable. EYES: Pupils equal. Conjunctiva normal. HEENT: External appearance of nose and ears normal, oral cavity grossly normal. NECK: JVD not raised; masses not palpable. HEART: First and second heart sounds are normal; no edema. LUNGS: Respiratory rate normal; clear to auscultation. ABDOMEN: Soft, nontender, liver spleen not palpable, no masses palpable. PSYCH: Alert and oriented x3; mood and affect normal. Dermatological: Small area of discoloration on the left forearm. No increased local temperature or redness NEUROLOGICAL: Cranial nerves grossly intact; no facial asymmetry, power and sensation grossly intact. LYMPHATICS: No lymph nodes palpable in the axilla and neck INVESTIGATIONS, reviewed in the clinical context: WBC 7.6 and globin 9.3 platelets 173 sodium 132 potassium 4.2 BUN 28 creatinine 2.17 Previous labs: BUN 19 creatinine 1.06 on [03/06/2021] Assessment: -Febrile illness in a patient who is immunosuppressed. Patient just over a week ago appears to better cellulitis of the left forearm. DC Bactrim and Keflex in the ER. Symptoms actually improved. Patient stopped the Bactrim and Keflex yesterday as a concern because of ALLERGIC reaction. Does not have any respiratory or urinary symptoms. We will check blood cultures -Pancreatic cancer treated with Whipple's surgery several half years ago but now with recurrence to the liver and lower vertebra. Currently on chemotherapeutic pills . Increase in bed cat has shown decrease of the metastatic since. Follow with oncology -Normocytic anemia secondary to underlying malignancy -Diabetes mellitus type 2, and oral hypoglycemic Glucophage thousand milligrams with supper and 5 mg the morning. Follow Accu- Cheks -Essential hypertension Zestril 20 mg with supper. Norvasc 5 mg a day. -Obesity BMI 33.4 Weight loss measures -Acute kidney injury, likely ATN. Creatinine gone up from 1.06-2.17 IV fluids. DC YONY inhibitor. Repeat labs. Care was discussed with the patient. Blood culture ordered. ID consulted. Care was discussed length with the patient. Repeat labs in the morning. Patient did receive a dose of Vanco mycin in the ER. Given the renal function discontinued. Await further input from ID. 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 orthopedic surgery john feet, c-sect x 1 Past Anesthesia/Blood Transfusion Reactions: No Reported Reaction Past Psychological History: No Psychological Hx Reported Smoking Status: Former smoker Past Alcohol Use History: Rare Past Drug Use History: None Reported - Past Family History Mother Family Medical History: No Reported History Medications and Allergies Home Medications Medication Instructions Recorded Confirmed Type lisinopriL [Zestril] 20 mg PO PC-SUPPER 12/29/13 03/06/21 History Afinitor 10mg 10 mg PO DIRECTED 06/02/19 03/06/21 History Octreotide Lar [SandoSTATIN LAR] 30 mg IM QMONTHLY 06/02/19 03/06/21 History metFORMIN HCL [Glucophage] 1,000 mg PO AC-SUPPER 02/15/20 03/06/21 History metFORMIN HCL [Glucophage] 500 mg PO DAILY 02/15/20 03/06/21 History Insulin Glargine,Hum.rec.anlog 16 unit SQ HS 02/13/21 03/06/21 History [Basaglar Kwikpen U-100] amLODIPine [Norvasc] 5 mg PO DAILY 02/13/21 03/06/21 History Cephalexin [Keflex] 500 mg PO Q6HR #40 cap 02/27/21 03/06/21 Rx Allergies Allergy/AdvReac Type Severity Reaction Status Date / Time erythromycin base Allergy Unknown Verified 03/06/21 07:16 Penicillins Allergy Unknown Verified 03/06/21 07:16 Childhood Sulfa (Sulfonamide Allergy Rash/Hives Verified 03/06/21 07:16 Antibiotics) sulfamethoxazole Allergy rash/hives/ Verified 03/06/21 07:16 [From Bactrim] ROSELIA/weaknes s trimethoprim [From Bactrim] Allergy rash/hives/ Verified 03/06/21 07:16 ROSELIA/weaknes s GANOLINIUM CONTRAST Allergy Unknown Uncoded 03/05/21 22:50 Physical Exam Vitals: Vital Signs Temp Pulse Resp BP Pulse Ox 03/06/21 07:32 98.2 F 77 18 118/74 97 03/06/21 06:44 75 18 98/65 99 03/06/21 04:07 98.1 F 71 18 96/65 97 03/06/21 02:00 87 18 96/57 98 03/05/21 23:51 99.0 F 03/05/21 22:51 101.3 F H 92 20 121/82 96 Intake and Output 03/05/21 03/06/21 03/06/21 22:59 06:59 14:59 Other: Weight 96.615 kg Results CBC & Chem 7: 03/06/21 00:31 03/06/21 00:31 Labs: Abnormal Lab Results - Last 24 Hours (Table) 03/06/21 03/06/21 03/06/21 Range/Units 00:31 00:31 00:31 RBC 3.73 L (3.80-5.40) m/uL Hgb 9.3 L (11.4-16.0) gm/dL Hct 28.0 L (34.0-46.0) % MCV 75.2 L (80.0-100.0) fL MCH 24.9 L (25.0-35.0) pg Lymphocytes # (Manual) 0.76 L (1.0-4.8) k/uL Sodium 132 L (137-145) mmol/L Carbon Dioxide 20 L (22-30) mmol/L BUN 28 H (7-17) mg/dL Creatinine 2.17 H (0.52-1.04) mg/dL Glucose 137 H (74-99) mg/dL POC Glucose (mg/dL) (75-99) mg/dL Urine Appearance Cloudy H (Clear) Urine Protein 1+ H (Negative) Urine Blood Large H (Negative) Urine RBC 54 H (0-5) /hpf Urine Bacteria Rare H (None) /hpf Hyaline Casts 6 H (0-2) /lpf Urine Mucus Rare H (None) /hpf 03/06/21 Range/Units 07:29 RBC (3.80-5.40) m/uL Hgb (11.4-16.0) gm/dL Hct (34.0-46.0) % MCV (80.0-100.0) fL MCH (25.0-35.0) pg Lymphocytes # (Manual) (1.0-4.8) k/uL Sodium (137-145) mmol/L Carbon Dioxide (22-30) mmol/L BUN (7-17) mg/dL Creatinine (0.52-1.04) mg/dL Glucose (74-99) mg/dL POC Glucose (mg/dL) 165 H (75-99) mg/dL Urine Appearance (Clear) Urine Protein (Negative) Urine Blood (Negative) Urine RBC (0-5) /hpf Urine Bacteria (None) /hpf Hyaline Casts (0-2) /lpf Urine Mucus (None) /hpf
[2021-03-06] MEDS: AFINITOR 10 MG PO SCH (21:51)
[2021-03-06 22:00] LABS: Glucose,Whole Blood 131 mg/dL (75-99)
[2021-03-06] MEDS: INSULIN DETEMIR (LEVEMIR) 100 UNIT/ML SYR SQ SCH (22:12)
--- NOTE | 2021-03-06 22:14 | XR ---
EXAMINATION TYPE: XR chest 2V DATE OF EXAM: 03/06/2021 COMPARISON: 02/26/2021 HISTORY: Fever TECHNIQUE: FINDINGS: Heart and mediastinum are normal. Lungs are clear. Diaphragm is normal. Bony thorax appears normal. IMPRESSION: Normal chest. No change.
--- NOTE | 2021-03-06 23:17 | P.CONS ---
History of Present Illness - Reason for Consult Consult date: 03/06/21 Fever Requesting physician: David Mack - Chief Complaint Fever x 1 day - History of Present Illness History of present illness : Patient is a 50-year-old female with a past medical history significant for neuroendocrine pancreatic cancer for which patient is currently on oral chemotherapy patient presenting to the ER with concern for a fever apparently the patient was recently evaluated in the ER and diagnosed with a bone wound to the left forearm patient was sent home on Bactrim and Keflex given the patient is allergic to Bactrim patient stopped taking it as she did have some allergic reaction to the Bactrim and start having a fever for the patient came to the hospital patient describing a fever of 101 F patient is having any headache or URI symptoms no chest pain shortness with occasional cough no nausea no vomiting no abdominal pain no diarrhea patient on presentation to the hospital did have a fever of 101.3 degrees form height patient was not hypoxic patient did have a normal white count with lymphopenia creatinine was mildly elevated liver enzymes are normal urine did show some hematuria ram PCR came back negative patient didnot have a chest x-ray patient has been admitted to the hospital has received a dose of cefepime and vancomycin infectious disease was consulted for further management of antibiotic therapy Review of system: CONSTITUTIONAL: Positive for weakness along with the fever. EYES: No complaint. ENT: No complaint. RESPIRATORY: As per history of present illness. CARDIOVASCULAR: No complaint. GENITOURINARY: No complaint. GASTROINTESTINAL: No complaint. MUSCULOSKELETAL: No complaint. INTEGUMENTARY: No complaint. PSYCHOLOGIC: No complaint. ENDOCRINE: No complaint. NEUROLOGIC: No complaint. Past medical history : Reviewed, documented below Past surgical history : Reviewed, documented below Social history: Reviewed, documented below Medications: Reviewed, as documented below EXAMINATION: Vital sigans= Reviewed and documented below GENERAL DESCRIPTION: Middle-aged female lying in bed, no distress. No tachypnea or accessory muscle of respiration use. HEENT: Shows Pallor , no scleral icterus. Oral mucous membrane is dry. NECK: Trachea central, no thyromegaly. LUNGS: Unlabored breathing. Clear to auscultation anteriorly. No wheeze or crackle. HEART: S1, S2, regular rate and rhythm. ABDOMEN: Soft, no tenderness , guarding or rigidity EXTREMITIES: No edema of feet. SKIN: No rash, no masses palpable. NEUROLOGICAL: The patient is awake, alert, oriented x3, mood and affect normal. LABS AND RADIOLOGY: Reviewed results see below Assessment : Patient presented to hospital with fever in this patient initial work-up has been negative apparently did have a burn wound to the left upper extremity however there was no evidence of any cellulitis urine was negative abdominal soft on clinical examination patient did have a normal white count had lymphopenia that would point more towards a possible viral syndrome however she came back negative for Covid test Plan: 1-obtain a chest x-ray 2-we will continue the patient on cefepime 2 g every 8 hours waiting for the culture to finalize 3-repeat inflammatory markers with a.m. lab and check influenza swab We will follow on clinical condition and cultures to further adjust medication if needed Thank you for this consultation we will follow the patient along with you Past Medical History Past Medical History: Cancer, Chest Pain / Angina, Diabetes Mellitus, Hypertension Additional Past Medical History / Comment(s): hx neuroendocrine tumor, liver lesions, heart murmur, pancreatic cancer with metastasis to liver and lower vertebrae, plantar fascitis History of Any Multi-Drug Resistant Organisms: None Reported Past Surgical History: Section, Orthopedic Surgery Additional Past Surgical History / Comment(s): whipple and tumor removed. orthopedic surgery john feet, c-sect x 1 Past Anesthesia/Blood Transfusion Reactions: No Reported Reaction Past Psychological History: No Psychological Hx Reported Smoking Status: Former smoker Past Alcohol Use History: Rare Additional Past Alcohol Use History / Comment(s): smoked 10-12 years 1/2 ppd quit age 27 Past Drug Use History: None Reported - Past Family History Mother Family Medical History: No Reported History Medications and Allergies Home Medications Medication Instructions Recorded Confirmed Type lisinopriL [Zestril] 20 mg PO PC-SUPPER 12/29/13 03/06/21 History Afinitor 10mg 10 mg PO DIRECTED 06/02/19 03/06/21 History Octreotide Lar [SandoSTATIN LAR] 30 mg IM QMONTHLY 06/02/19 03/06/21 History metFORMIN HCL [Glucophage] 1,000 mg PO AC-SUPPER 02/15/20 03/06/21 History metFORMIN HCL [Glucophage] 500 mg PO DAILY 02/15/20 03/06/21 History Insulin Glargine,Hum.rec.anlog 16 unit SQ HS 02/13/21 03/06/21 History [Siva Hodges U-100] amLODIPine [Norvasc] 5 mg PO DAILY 02/13/21 03/06/21 History Cephalexin [Keflex] 500 mg PO Q6HR #40 cap 02/27/21 03/06/21 Rx Allergies Allergy/AdvReac Type Severity Reaction Status Date / Time erythromycin base Allergy Unknown Verified 03/06/21 07:16 Penicillins Allergy Unknown Verified 03/06/21 07:16 Childhood Sulfa (Sulfonamide Allergy Rash/Hives Verified 03/06/21 07:16 Antibiotics) sulfamethoxazole Allergy rash/hives/ Verified 03/06/21 07:16 [From Bactrim] ROSELIA/weaknes s trimethoprim [From Bactrim] Allergy rash/hives/ Verified 03/06/21 07:16 ROSELIA/weaknes s GANOLINIUM CONTRAST Allergy Unknown Uncoded 03/05/21 22:50 Physical Exam Vitals: Vital Signs Temp Pulse Pulse Resp BP BP Pulse Ox 03/06/21 22:34 79 16 03/06/21 21:52 98.8 F 79 16 131/83 98 03/06/21 16:34 98.1 F 74 16 121/83 98 03/06/21 09:57 77 16 109/71 100 03/06/21 07:32 98.2 F 77 18 118/74 97 03/06/21 06:44 75 18 98/65 99 03/06/21 04:07 98.1 F 71 18 96/65 97 03/06/21 02:00 87 18 96/57 98 03/05/21 23:51 99.0 F Intake and Output 03/06/21 03/06/21 03/07/21 14:59 22:59 06:59 Intake Total 200 Balance 200 Intake: Oral 200 Other: Voiding Method Toilet Weight 96.615 kg Results CBC & Chem 7: 03/06/21 00:31 03/06/21 00:31 Labs: Abnormal Lab Results - Last 24 Hours (Table) 03/06/21 03/06/21 03/06/21 Range/Units 00:31 00:31 00:31 RBC 3.73 L (3.80-5.40) m/uL Hgb 9.3 L (11.4-16.0) gm/dL Hct 28.0 L (34.0-46.0) % MCV 75.2 L (80.0-100.0) fL MCH 24.9 L (25.0-35.0) pg Lymphocytes # (Manual) 0.76 L (1.0-4.8) k/uL Sodium 132 L (137-145) mmol/L Carbon Dioxide 20 L (22-30) mmol/L BUN 28 H (7-17) mg/dL Creatinine 2.17 H (0.52-1.04) mg/dL Glucose 137 H (74-99) mg/dL POC Glucose (mg/dL) (75-99) mg/dL Urine Appearance Cloudy H (Clear) Urine Protein 1+ H (Negative) Urine Blood Large H (Negative) Urine RBC 54 H (0-5) /hpf Urine Bacteria Rare H (None) /hpf Hyaline Casts 6 H (0-2) /lpf Urine Mucus Rare H (None) /hpf 03/06/21 03/06/21 03/06/21 Range/Units 07:29 13:54 21:59 RBC (3.80-5.40) m/uL Hgb (11.4-16.0) gm/dL Hct (34.0-46.0) % MCV (80.0-100.0) fL MCH (25.0-35.0) pg Lymphocytes # (Manual) (1.0-4.8) k/uL Sodium (137-145) mmol/L Carbon Dioxide (22-30) mmol/L BUN (7-17) mg/dL Creatinine (0.52-1.04) mg/dL Glucose (74-99) mg/dL POC Glucose (mg/dL) 165 H 244 H 131 H (75-99) mg/dL Urine Appearance (Clear) Urine Protein (Negative) Urine Blood (Negative) Urine RBC (0-5) /hpf Urine Bacteria (None) /hpf Hyaline Casts (0-2) /lpf Urine Mucus (None) /hpf
[2021-03-07] MEDS: CEFEPIME 2 GM in SODIUM CHLORIDE 0.9% 100 ML IVPB SCH ×3 (00:17→19:58)
[2021-03-07] MEDS ORDERED: VANCOMYCIN 1,500 MG in SODIUM CHLORIDE 0.9% 250 ML IVPB SCH (02:00)
[2021-03-07] MEDS: SODIUM CHLORIDE 0.9% 1,000 ML IV SCH ×5 (04:11→17:47)
[2021-03-07 06:23] LABS: HCT 26.1 % (34.0-46.0); HGB 9.1 gm/dL (11.4-16.0); MCHC 34.9 g/dL (31.0-37.0); MCV 74.5 fL (80.0-100.0); Mean Platelet Volume 7.5; Microcytosis Slight; Platelet Count 180 k/uL (150-450); Poikilocytosis Slight; RDW 14.2 % (11.5-15.5); WBC 5.3 k/uL (3.8-10.6)
[2021-03-07 06:56] LABS: ALT 25 U/L (4-34); AST 27 U/L (14-36); African American GFR (CKD) 56 (>60 ml/min/1.73 sqM); Albumin 3.4 g/dL (3.5-5.0); Albumin/Globulin Ratio 1.1; Alkaline Phosphatase 95 U/L (38-126); Anion Gap 8 mmol/L; Blood Urea Nitrogen 21 mg/dL (7-17); C Reactive Protein 4.4 mg/dL (<1.0); Calcium 8.8 mg/dL (8.4-10.2); Carbon Dioxide 23 mmol/L (22-30); Chloride 105 mmol/L (98-107); Glucose 126 mg/dL (74-99); LDH 682 U/L (313-618); Non-African American GFR(CKD) 48 (>60 ml/min/1.73 sqM); Potassium 4.6 mmol/L (3.5-5.1); Sodium 136 mmol/L (137-145); Total Bilirubin 0.5 mg/dL (0.2-1.3); Total Protein 6.4 g/dL (6.3-8.2)
[2021-03-07 07:00] LABS: Band Neutrophils % 33 %; Eosinophils # (M) 0.27 k/uL (0-0.7); Lymphocytes # (M) 1.54 k/uL (1.0-4.8); Monocytes # (M) 0.42 k/uL (0-1.0); Neutrophils % (M) 25 %; Nucleated Red Blood Cells 0 /100 WBC (0-0); Total Cells Counted 200
[2021-03-07 07:26] LABS: Glucose,Whole Blood 132 mg/dL (75-99)
[2021-03-07] MEDS: AFINITOR 10 MG PO SCH (08:14)
[2021-03-07] MEDS: FAMOTIDINE 20 MG TAB PO SCH (08:24)
[2021-03-07] MEDS: INSULIN ASPART (NovoLOG) 100 UNIT/ML VIAL SQ SCH ×4 (08:28→20:53)
[2021-03-07 12:11] LABS: Glucose,Whole Blood 208 mg/dL (75-99)
--- NOTE | 2021-03-07 15:16 | CDI ---
Documentation Clarification Form Date: 03/07/2021 02:21:39 PM From: Johanna Novoa RN, CCDS Admit Date: 03/06/2021 02:02:00 AM Patient Name: Trice Manjarerz Visit Number: [id number] Discharge Date: ATTENTION: The Clinical Documentation Specialists (CDI) and [facility] Coding Staff appreciate your assistance in clarifying documentation. Please respond to the clarification below the line at the bottom and electronically sign. The CDI & [facility] Coding staff will review the response and follow-up if needed. Please note: Queries are made part of the Legal Health Record. If you have any questions, please contact the author of this message via ITS. Dr. David Mack There is documentation of acute renal failure Additional clarification is requested. 03/06 Oncology consult: Acute kidney injury likely 2/2 dehydration since patient was vomiting and having diarrhea on Bactrim. History/Risk Factors: Pancreatic cancer with mets to liver, vertebra, Diabetes Mellitus type 2, Essential hypertension, Former smoker Clinical Indicators: 50-year-old female who present to emergency with some weakness, shortness of breath some dizziness, possible allergic reaction to Bactrim. In the 03/06/21 Oncology consult patient was having nausea, upset stomach, inability to tolerate oral intake. 03/05 Vital signs: 1231/82 92 20 101.3 Treatment: Monitor Lab: BUN, Creatinine, Electrolytes .9NS 500 Bolus .9NS @ 75 MLS HR Can you please clarify possible cause of acute renal failure with ATN? [ ] FAUSTINO with ATN secondary to dehydration [ ] FAUSTINO with ATN secondary to Bactrim [ ] Other, please specify [ ] Unable to determine (Template Last Revised: July 2020) FAUSTINO with ATN possibly secondary to Bactrim MTDD
--- NOTE | 2021-03-07 17:29 | PN ---
PROGRESS NOTE DATE OF SERVICE: 03/07/2021 REASON FOR FOLLOWUP: Fever. INTERVAL HISTORY: The patient is afebrile. No fever has been recorded since admission to the hospital. The patient is feeling better. She is breathing comfortably. No chest pain, shortness of breath or cough. No abdominal pain. No vomiting or diarrhea PHYSICAL EXAMINATION: Blood pressure 111/75, pulse of 73, temperature 97.9. She is 99% on room air. General description is a middle-aged female up in the chair in no distress. Respiratory system: Unlabored breathing, decreased intensity of breath sounds. No wheeze. Heart S1, S2. Regular rate and rhythm. Abdomen soft, no tenderness. LABS: Hemoglobin is 9.1, white count of 5.3, creatinine 1.31. CRP is mildly elevated as well as ( ) 0.18. Coronavirus PCR was negative. Influenza is negative. Cultures are currently pending. DIAGNOSTIC IMPRESSION AND PLAN: Patient to the hospital with fever and this patient did have extensive workup with no obvious focus. Chest x-ray negative. Urine was negative. Coronavirus PCR was negative. She is on cefepime, the culture remains negative. Medline, short course of oral Ceftin on discharge and close outpatient followup. MMODL / IJN: [id number] /
[2021-03-07 17:42] LABS: Glucose,Whole Blood 117 mg/dL (75-99)
--- NOTE | 2021-03-07 19:07 | P.PN ---
Progress Note - Text Progress Note Date: 03/07/21 Chief Complaint: Fever History of presenting complaint: This is a pleasant 50-year-old patient of Dr. Keller. Oncologist Dr. tay pope. Diagnosed with pancreatic cancer and about 8 years ago. During a routine ultrasound. Underwent Whipple's procedure. About 3 years ago had metastatic systems the liver and/or vertebra. On maintenance chemotherapy pill doing this well with the same. Last PET scan not too long ago done by her oncologist showed that the metastatic to the shrinking. Patient presented to ER on February 26. Was found to have left arm cellulitis. Was discharged on Bactrim and Keflex. Her left arm lesion which is looking pretty rough she ary cribes Acticort significantly better. Yesterday she developed some weakness some shortness of breath some dizziness. Slight rash. She called her family doctor's office. Those conservative this was an ALLERGIC reaction. Told to hold off the Bactrim and decided to come to the ER. Had a fever yet of 101.3. Patient denies any respiratory urinary symptoms. Left arm lesion/cellulitis is actually better. Her appetite is okay. 03/07/2021: Patient feeling well. No fever. Getting IV fluids. Empirically on IV cefepime. Being followed by ID. Discussed with patient. Good oral intake. Review of systems: Was done for constitutional, cardiovascular, GI, pulmonary. relevant finding as above Active Medications Acetaminophen (Acetaminophen Tab 325 Mg Tab) 650 mg PO Q6HR PRN PRN Reason: Mild Pain or Fever > 100.5 Diphenhydramine HCl (Diphenhydramine 50 Mg/Ml 1 Ml Vial) 25 mg IVP Q6HR PRN PRN Reason: Allergy Symptoms Famotidine (Famotidine 20 Mg Tab) 20 mg PO DAILY ON LICENSE OF [facility] Last Admin: 03/07/21 08:24 Dose: 20 mg Documented by: Sodium Chloride (Saline 0.9%) 1,000 mls @ 75 mls/hr IV .[id number] ON LICENSE OF [facility] Last Admin: 03/07/21 08:24 Dose: 75 mls/hr Documented by: Sodium Chloride (Saline 0.9%) 1,000 mls @ 130 mls/hr IV .[id number] ON LICENSE OF [facility] Last Admin: 03/07/21 17:47 Dose: Not Given Documented by: Cefepime HCl 2 gm/ Sodium (Chloride) 100 mls @ 25 mls/hr IVPB Q12HR ON LICENSE OF [facility] Insulin Aspart (Insulin Aspart (Novolog) 100 Unit/Ml Vial) 0 unit SQ ACHS ON LICENSE OF [facility]; Protocol Last Admin: 03/07/21 17:46 Dose: Not Given Documented by: Insulin Detemir (Insulin Detemir (Levemir) 100 Unit/Ml Syr) 16 unit SQ HS ON LICENSE OF [facility] Last Admin: 03/06/21 22:12 Dose: 16 unit Documented by: Naloxone HCl (Naloxone 0.4 Mg/Ml 1 Ml Vial) 0.2 mg IV Q2M PRN PRN Reason: Opioid Reversal Non-Formulary Medication (Afinitor) 10 mg PO DAILY ON LICENSE OF [facility] Last Admin: 03/07/21 08:14 Dose: Not Given Documented by: Past medical history to include: Diabetes mellitus type 2, hypertension, or endocrine tumor, liver lesions, pancreatic cancer metastatic systems the liver and lower vertebra, plantar fasciitis Social history: Patient smoked for about 10-12 years, half a pack a day stopped her age of 27. Alcohol rarely. Family history: Reviewed, noncontributory to presentation Physical examination: VITAL SIGNS: Afebrile, 73, 16, 111/75, 99% room air GENERAL: Sitting up on bed, comfortable awake EYES: Pupils equal. Conjunctiva normal. HEENT: External appearance of nose and ears normal, oral cavity grossly normal. NECK: JVD not raised; masses not palpable. HEART: First and second heart sounds are normal; no edema. LUNGS: Respiratory rate normal; clear to auscultation. ABDOMEN: Soft, nontender, liver spleen not palpable, no masses palpable. PSYCH: Alert and oriented x3; mood and affect normal. Dermatological: Small area of discoloration on the left forearm. No increased local temperature or redness INVESTIGATIONS, reviewed in the clinical context: March 07: White count 5.3 hemoglobin 9.1 platelets 180 potassium 4.6 BUN 21 creatinine 1.31 WBC 7.6 and globin 9.3 platelets 173 sodium 132 potassium 4.2 BUN 28 creatinine 2.17 Previous labs: BUN 19 creatinine 1.06 on [03/06/2021] Assessment: -Febrile illness in a patient who is immunosuppressed. Patient just over a week ago appears to better cellulitis of the left forearm. DC Bactrim and Keflex in the ER. Symptoms actually improved. Patient stopped the Bactrim and Keflex yesterday as a concern because of ALLERGIC reaction. Does not have any respiratory or urinary symptoms. We will check blood cultures -Pancreatic cancer treated with Whipple's surgery several half years ago but now with recurrence to the liver and lower vertebra. Currently on chemotherapeutic pills . Increase in bed cat has shown decrease of the metastatic since. Follow with oncology -Normocytic anemia secondary to underlying malignancy -Diabetes mellitus type 2, and oral hypoglycemic Glucophage thousand milligrams with supper and 5 mg the morning. Follow Accu- Cheks -Essential hypertension Zestril 20 mg with supper. Norvasc 5 mg a day. -Obesity BMI 33.4 Weight loss measures -Acute kidney injury, likely ATN. Creatinine gone up from 1.06-2.17, improving Continue IV fluids. DC YONY inhibitor. Repeat labs. Discussed with patient. Continue IV fluids. Other medications to continue. Follow with ID. Repeat BMP.
[2021-03-07 20:20] LABS: Glucose,Whole Blood 228 mg/dL (75-99)
[2021-03-07] MEDS: INSULIN DETEMIR (LEVEMIR) 100 UNIT/ML SYR SQ SCH (20:53)
--- NOTE | 2021-03-07 21:15 | P.PN ---
Subjective Progress Note Date: 03/07/21 Principal diagnosis: Bactrim reaction Renal FUnction is improving, she had no acute complaints overnight Objective - Vital Signs Vital signs: Vital Signs Temp 98.4 F 03/07/21 20:28 Pulse 76 03/07/21 20:28 Resp 18 03/07/21 20:28 BP 127/82 03/07/21 20:28 Pulse Ox 100 03/07/21 20:28 Intake & Output 03/07/21 03/07/21 03/08/21 06:59 18:59 06:59 Intake Total 790 900 Balance 790 900 Weight 96.615 kg Intake: Intake, IV Titration 350 900 Amount Cefepime 2 gm In Sodium 100 Chloride 0.9% 100 ml @ 25 mls/hr IVPB Q8HR [facility] Rx# :[id number] Sodium Chloride 0.9% 1, 900 000 ml @ 75 mls/hr IV . [id number] [facility] Rx#:[id number] Vancomycin 1,500 mg In 250 Sodium Chloride 0.9% 250 ml @ 125 mls/hr IVPB Q24H [facility] Rx#:[id number] Oral 440 Other: Voiding Method Toilet Toilet # Voids 2 2 - Constitutional General appearance: Present: cooperative, no acute distress - EENT Eyes: Present: EOMI, PERRLA ENT: Present: NA/AT - Neck Neck: Present: normal ROM - Respiratory Respiratory: bilateral: CTA - Gastrointestinal General gastrointestinal: Present: soft - Integumentary Integumentary: Present: pale - Neurologic Neurologic: Present: CNII-XII intact - Musculoskeletal Musculoskeletal: Present: generalized weakness, strength equal bilaterally - Psychiatric Psychiatric: Present: A&O x's 3, appropriate affect, intact judgment & insight - Labs CBC & Chem 7: 03/07/21 06:01 03/07/21 06:01 Labs: Abnormal Lab Results - Last 24 Hours (Table) 03/06/21 03/07/21 03/07/21 Range/Units 21:59 06:01 06:01 RBC 3.50 L (3.80-5.40) m/uL Hgb 9.1 L (11.4-16.0) gm/dL Hct 26.1 L (34.0-46.0) % MCV 74.5 L (80.0-100.0) fL Sodium 136 L (137-145) mmol/L BUN 21 H (7-17) mg/dL Creatinine 1.31 H (0.52-1.04) mg/dL Glucose 126 H (74-99) mg/dL POC Glucose (mg/dL) 131 H (75-99) mg/dL Ferritin 860.0 H (10.0-291.0) ng/mL Lactate Dehydrogenase 682 H (313-618) U/L C-Reactive Protein 4.4 H (<1.0) mg/dL Albumin 3.4 L (3.5-5.0) g/dL Procalcitonin (0.02-0.09) ng/mL 03/07/21 03/07/21 03/07/21 Range/Units 06:01 07:24 12:10 RBC (3.80-5.40) m/uL Hgb (11.4-16.0) gm/dL Hct (34.0-46.0) % MCV (80.0-100.0) fL Sodium (137-145) mmol/L BUN (7-17) mg/dL Creatinine (0.52-1.04) mg/dL Glucose (74-99) mg/dL POC Glucose (mg/dL) 132 H 208 H (75-99) mg/dL Ferritin (10.0-291.0) ng/mL Lactate Dehydrogenase (313-618) U/L C-Reactive Protein (<1.0) mg/dL Albumin (3.5-5.0) g/dL Procalcitonin 0.18 H (0.02-0.09) ng/mL 03/07/21 03/07/21 Range/Units 17:40 20:12 RBC (3.80-5.40) m/uL Hgb (11.4-16.0) gm/dL Hct (34.0-46.0) % MCV (80.0-100.0) fL Sodium (137-145) mmol/L BUN (7-17) mg/dL Creatinine (0.52-1.04) mg/dL Glucose (74-99) mg/dL POC Glucose (mg/dL) 117 H 228 H (75-99) mg/dL Ferritin (10.0-291.0) ng/mL Lactate Dehydrogenase (313-618) U/L C-Reactive Protein (<1.0) mg/dL Albumin (3.5-5.0) g/dL Procalcitonin (0.02-0.09) ng/mL Assessment and Plan (1) Acute kidney injury Current Visit: Yes Status: Acute Priority: High Code(s): N17.9 - ACUTE KIDNEY FAILURE, UNSPECIFIED SNOMED Code(s): 56535002 (2) Allergic reaction to sulfonamide Current Visit: Yes Status: Acute Priority: High Code(s): T37.0X1A - POISONING BY SULFONAMIDES, ACCIDENTAL (UNINTENTIONAL), INIT SNOMED Code(s): 34726686367497076 (3) Fever Current Visit: Yes Status: Acute Priority: High Code(s): R50.9 - FEVER, UNSPECIFIED SNOMED Code(s): 634127223 (4) Metastatic disease Current Visit: No Status: Acute Code(s): C79.9 - SECONDARY MALIGNANT NEOPLASM OF UNSPECIFIED SITE SNOMED Code(s): 556943362 (5) Neuroendocrine tumor of pancreas Current Visit: No Status: Chronic Priority: Low Code(s): D3A.8 - OTHER BENIGN NEUROENDOCRINE TUMORS SNOMED Code(s): 247775459 Plan: She continues to show improvement objectively in her renal function and her subjective complaints Continue to monitor labs Physician attest: I have completed her full history and physical and agree with above dictation, dictated as a scribe
[2021-03-08] MEDS: SODIUM CHLORIDE 0.9% 1,000 ML IV SCH ×3 (03:19→12:00)
[2021-03-08 07:40] LABS: Glucose,Whole Blood 135 mg/dL (75-99)
[2021-03-08] MEDS: INSULIN ASPART (NovoLOG) 100 UNIT/ML VIAL SQ SCH ×2 (08:18→12:47)
[2021-03-08] MEDS: AFINITOR 10 MG PO SCH (08:19)
[2021-03-08] MEDS: CEFEPIME 2 GM in SODIUM CHLORIDE 0.9% 100 ML IVPB SCH (08:19)
[2021-03-08 08:24] LABS: African American GFR (CKD) 80 (>60 ml/min/1.73 sqM); Anion Gap 9 mmol/L; Blood Urea Nitrogen 18 mg/dL (7-17); Calcium 9.1 mg/dL (8.4-10.2); Carbon Dioxide 22 mmol/L (22-30); Chloride 107 mmol/L (98-107); Glucose 138 mg/dL (74-99); Non-African American GFR(CKD) 70 (>60 ml/min/1.73 sqM); Potassium 4.7 mmol/L (3.5-5.1); Sodium 138 mmol/L (137-145)
[2021-03-08] MEDS: FAMOTIDINE 20 MG TAB PO SCH (10:54)
[2021-03-08 12:36] LABS: Glucose,Whole Blood 195 mg/dL (75-99)
[2021-03-08 13:03] VITALS: BP 144/80; PULSE 58; RESP 16; TEMP 98.5
--- NOTE | 2021-03-08 14:33 | P.DS ---
Providers Date of admission: 03/06/21 02:02 Expected date of discharge: 03/08/21 Attending physician: David Mack Consults: 03/06/21 01:19 Consult Physician Routine Consulting Provider: Hugo Gallardo Consult Reason/Comments: Fever Do you want consulting provider notified?: Yes 03/06/21 08:36 Consult Physician Routine Consulting Provider: Ryan Hannon Consult Reason/Comments: fever Do you want consulting provider notified?: Yes Primary care physician: Esa [facility] Course: Chief Complaint: Fever History of presenting complaint: This is a pleasant 50-year-old patient of Dr. Keller. Oncologist Dr. tay pope. Diagnosed with pancreatic cancer and about 8 years ago. During a routine ultrasound. Underwent Whipple's procedure. About 3 years ago had metastatic systems the liver and/or vertebra. On maintenance chemotherapy pill doing this well with the same. Last PET scan not too long ago done by her oncologist showed that the metastatic to the shrinking. Patient presented to ER on February 26. Was found to have left arm cellulitis. Was discharged on Bactrim and Keflex. Her left arm lesion which is looking pretty rough she describes Acticort significantly better. Yesterday she developed some weakness some shortness of breath some dizziness. Slight rash. She called her family doctor's office. Those conservative this was an ALLERGIC reaction. Told to hold off the Bactrim and decided to come to the ER. Had a fever yet of 101.3. Patient denies any respiratory urinary symptoms. Left arm lesion/cellulitis is actually better. Her appetite is okay. Patient is put on IV cefepime on presentation. Patient continued to look good. No respiratory urinary symptoms. Lesion in the left forearm minimal. No further fevers. Oral intake good. Today: Patient doing well. Up and about. No fever. Discussed with Dr. Edmond from [place]. Okay to discharge the patient stop all antibiotics. Initial fever could've been from the antibiotic itself. Discussed with the patient. It is explained to the patient that given her weak immune system chance of ear infections recurring are high. Discussed with the nurse. Discussion and discharge planning more than 35 minutes Consultation: Dr. Uriostegui from oncology Dr. Hannon from [place] Past medical history to include: Diabetes mellitus type 2, hypertension, or endocrine tumor, liver lesions, pancreatic cancer metastatic systems the liver and lower vertebra, plantar fasciitis Social history: Patient smoked for about 10-12 years, half a pack a day stopped her age of 27. Alcohol rarely. Family history: Reviewed, noncontributory to presentation Physical examination: VITAL SIGNS: 98.5, 58, 16, 144-80, 96% room air GENERAL: Sitting up on bed, comfortable awake EYES: Pupils equal. Conjunctiva normal. HEENT: External appearance of nose and ears normal, oral cavity grossly normal. NECK: JVD not raised; masses not palpable. HEART: First and second heart sounds are normal; no edema. LUNGS: Respiratory rate normal; clear to auscultation. ABDOMEN: Soft, nontender, liver spleen not palpable, no masses palpable. PSYCH: Alert and oriented x3; mood and affect normal. Dermatological: Small area of discoloration on the left forearm. No increased local temperature or redness INVESTIGATIONS, reviewed in the clinical context: March 08: Potassium 4.7 creatinine 0.97 March 07: White count 5.3 hemoglobin 9.1 platelets 180 potassium 4.6 BUN 21 creatinine 1.31 WBC 7.6 and globin 9.3 platelets 173 sodium 132 potassium 4.2 BUN 28 creatinine 2.17 Previous labs: BUN 19 creatinine 1.06 on [03/06/2021] Assessment: -Fever possibly from antibiotics. Clinically patient looking good. No other evidence of infection. Antibiotics discontinued. -Pancreatic cancer treated with Whipple's surgery several half years ago but now with recurrence to the liver and lower vertebra. Currently on chemotherapeutic pills . Increase in bed cat has shown decrease of the metastatic since. Follow with oncology -Normocytic anemia secondary to underlying malignancy -Diabetes mellitus type 2, and oral hypoglycemic Glucophage 1000 milligrams with supper and 500 mg the morning. Follow Accu- Cheks -Essential hypertension Zestril 20 mg with supper. Norvasc 5 mg a day. -Obesity BMI 33.4 Weight loss measures -Acute kidney injury, likely ATN. Creatinine gone up from 1.06-2.17, improving Continue IV fluids. DC YONY inhibitor. Creatinine down to 0.97 Disposition: Home Plan - Discharge Summary Discharge Rx Participant: No New Discharge Prescriptions: Continue lisinopriL [Zestril] 20 mg PO PC-SUPPER Octreotide Lar [SandoSTATIN LAR] 30 mg IM QMONTHLY Afinitor 10mg 10 mg PO DIRECTED metFORMIN HCL [Glucophage] 500 mg PO DAILY metFORMIN HCL [Glucophage] 1,000 mg PO AC-SUPPER amLODIPine [Norvasc] 5 mg PO DAILY Insulin Glargine,Hum.rec.anlog [Basaglar Kwikpen U-100] 16 unit SQ HS Discontinued Cephalexin [Keflex] 500 mg PO Q6HR #40 cap Discharge Medication List lisinopriL [Zestril] 20 mg PO PC-SUPPER 12/29/13 [History] Afinitor 10mg 10 mg PO DIRECTED 06/02/19 [History] Octreotide Lar [SandoSTATIN LAR] 30 mg IM QMONTHLY 06/02/19 [History] metFORMIN HCL [Glucophage] 1,000 mg PO AC-SUPPER 02/15/20 [History] metFORMIN HCL [Glucophage] 500 mg PO DAILY 02/15/20 [History] Insulin Glargine,Hum.rec.anlog [Basaglar Kwikpen U-100] 16 unit SQ HS 02/13/21 [History] amLODIPine [Norvasc] 5 mg PO DAILY 02/13/21 [History] Follow up Appointment(s)/Referral(s): Esa Kellre DO [Primary Care Provider] - 1-2 days Hugo Gallardo MD [STAFF PHYSICIAN] - 03/27/21 8:45 am Activity/Diet/Wound Care/Special Instructions: Hold afinitor until antibiotics completed, then result no dc antibiotics - cleared by dr hannon
[2021-03-08] MEDS ORDERED: CEFEPIME 2 GM in SODIUM CHLORIDE 0.9% 100 ML IVPB SCH (16:00)
== END 2021-03-08 14:44 | disposition home or self-care (01) | DRG 683 ==
LOC: EC 22:48 → 5NMEDONC 03-06 02:02
PROVIDERS: ADMIT Hospitalist; ATTEND Hospitalist
DX: N17.0 Acute kidney failure with tubular necrosis (principal); D84.9 Immunodeficiency, unspecified; L03.114 Cellulitis of left upper limb; C7A.8 Other malignant neuroendocrine tumors; C7B.8 Other secondary neuroendocrine tumors; E86.0 Dehydration; T36.8X5A Adverse effect of other systemic antibiotics, initial encounter; R50.2 Drug induced fever; D63.0 Anemia in neoplastic disease; E11.9 Type 2 diabetes mellitus without complications; E66.9 Obesity, unspecified; I10 Essential (primary) hypertension; Z68.33 Body mass index [BMI] 33.0-33.9, adult; Z20.822 Contact with and (suspected) exposure to COVID-19; B34.9 Viral infection, unspecified; Z90.411 Acquired partial absence of pancreas; Z98.890 Other specified postprocedural states; Z88.0 Allergy status to penicillin; Z88.2 Allergy status to sulfonamides; Z88.1 Allergy status to other antibiotic agents; Z91.041 Radiographic dye allergy status; Z87.891 Personal history of nicotine dependence; Z79.84 Long term (current) use of oral hypoglycemic drugs; Z79.899 Other long term (current) drug therapy; Z79.4 Long term (current) use of insulin
CPT/HCPCS: 36415; 71046; 80048; 80053; 81001; 82728; 83605; 83615; 84145; 85025; 86140; 87502; 87635; 96374; 99284

== ENCOUNTER 2021-11-13 06:58 | Day surgery (SDC) | payer BC, MEDICARE, OTHER ==
[2021-11-11 10:00] VITALS: BMI 33.2
[~2021-11-13 06:58] MED LIST: LACTATED RINGERS 1,000 ML IV SCH
[2021-11-13 07:31] VITALS: TEMP 97
[2021-11-13 07:50] LABS: Glucose,Whole Blood 228 mg/dL (70-110)
[2021-11-13] MEDS ORDERED: FAMOTIDINE 20 MG/2 ML VIAL IVP ONE (07:52)
[2021-11-13] MEDS ORDERED: fentaNYL (PF) 50 MCG/ML 2 ML AMP ONE (08:30)
[2021-11-13] MEDS ORDERED: PROPOFOL 10 MG/ML 20 ML VIAL IV ONE (08:30)
[2021-11-13] MEDS ORDERED: MIDAZOLAM 2 MG/2 ML VIAL ONE (08:30)
--- NOTE | 2021-11-13 08:49 | P.GSHP ---
History of Present Illness H&P Date: 11/13/21 Chief Complaint: Screening colonoscopy, family history of colon cancer This a 42-year-old female presents today for screening colonoscopy. Patient has a strong family history of colon cancer. She denies any significant GI complaints. Past Medical History Past Medical History: Cancer, Diabetes Mellitus, Hypertension, Liver Disease Additional Past Medical History / Comment(s): hx neuroendocrine tumor, liver lesions, "slight heart murmur", pancreatic cancer with metastasis to liver and lower vertebrae, plantar fasciitis , hernia x 2, anemia(gets infusions occ), decreased kidney function, hx bowel obstruction. COVID x 2(2019,05/2021) History of Any Multi-Drug Resistant Organisms: None Reported Past Surgical History: Section, Cholecystectomy, Orthopedic Surgery Additional Past Surgical History / Comment(s): whipple surgery and tumor removed. orthopedic surgery john feet, c-sect x 1 Past Anesthesia/Blood Transfusion Reactions: No Reported Reaction Additional Past Anesthesia/Blood Transfusion Reaction / Comment(s): pt requests to be transfered to [facility] if ever any need to be transfered to another facility Smoking Status: Former smoker - Past Family History Mother Family Medical History: No Reported History Father Family Medical History: Cancer Additional Family Medical History / Comment(s): colon Medications and Allergies Home Medications Medication Instructions Recorded Confirmed Type lisinopriL [Zestril] 20 mg PO 1900 12/29/13 11/11/21 History metFORMIN HCL [Glucophage] 1,000 mg PO AC-SUPPER 02/15/20 11/11/21 History metFORMIN HCL [Glucophage] 500 mg PO QAM 02/15/20 11/11/21 History Insulin Glargine,Hum.rec.anlog 20 unit SQ HS 02/13/21 11/11/21 History [Basaglar Kwikpen U-100] amLODIPine [Norvasc] 5 mg PO DAILY 02/13/21 11/11/21 History Cholecalciferol [Vitamin D3 (25 150 mcg PO DAILY 11/11/21 11/11/21 History Mcg = 1000 Iu)] Everolimus 10 mg PO HS 11/11/21 11/11/21 History Ferrous Sulfate [Feosol] 325 mg PO DAILY 11/11/21 11/11/21 History Insulin Lispro [humaLOG Kwikpen] 0 unit SQ TID-W/MEALS PRN 11/11/21 11/11/21 His tory Sandostatin Injection 1 dose IJ QMONTHLY 11/11/21 11/11/21 History Allergies Allergy/AdvReac Type Severity Reaction Status Date / Time erythromycin base Allergy Unknown Verified 11/13/21 07:27 Penicillins Allergy Unknown Verified 11/13/21 07:27 Childhood Sulfa (Sulfonamide Allergy Rash/Hives Verified 11/13/21 07:27 Antibiotics) sulfamethoxazole Allergy rash/hives/ Verified 11/13/21 07:27 [From Bactrim] ROSELIA/weaknes s trimethoprim [From Bactrim] Allergy rash/hives/ Verified 11/13/21 07:27 septic GANOLINIUM CONTRAST Allergy Unknown Uncoded 11/13/21 07:27 Surgical - Exam Vital Signs Temp Pulse Resp BP Pulse Ox 97.0 F L 73 20 162/82 96 11/13/21 07:30 11/13/21 07:30 11/13/21 07:30 11/13/21 07:30 11/13/21 07:30 - General well developed, well nourished, no distress - Eyes PERRL - ENT normal pinna - Neck no masses - Respiratory normal expansion - Cardiovascular Rhythm: regular - Abdomen Abdomen: soft, non tender Results - Labs Abnormal Lab Results - Last 24 Hours (Table) 11/13/21 Range/Units 07:49 POC Glucose (mg/dL) 228 H (70-110) mg/dL Assessment and Plan Assessment: Family history of colon cancer. We'll perform screening colonoscopy.
--- NOTE | 2021-11-13 08:50 | P.OP ---
Date of Procedure: 11/13/21 Preoperative Diagnosis: Screening colonoscopy Postoperative Diagnosis: Normal colon Procedure(s) Performed: Colonoscopy Anesthesia: MAC Surgeon: Prashant Hunt Pathology: none sent Condition: stable Disposition: PACU Description of Procedure: The patient's placed on the endoscopy table in the lateral position. He received IV sedation. Digital rectal exam was performed. This revealed no abnormalities. Flexible colonoscope was then placed patient anus and passed throughout the entire colon. The ileocecal valve was visualized. The cecum, ascending and transverse colon appeared normal. The descending and sigmoid colon appeared normal. The scope was withdrawn for patient.
[2021-11-13 09:02] LABS: Glucose,Whole Blood 174 mg/dL (70-110)
[2021-11-13 09:09] VITALS: BP 127/81; PULSE 53; RESP 16
== END 2021-11-13 09:42 | disposition home or self-care (01) ==
LOC: ORWHC2ENDO 06:58
PROVIDERS: ATTEND Surgery
DX: Z12.11 Encounter for screening for malignant neoplasm of colon (principal); Z80.0 Family history of malignant neoplasm of digestive organs; E11.9 Type 2 diabetes mellitus without complications; I10 Essential (primary) hypertension; R01.1 Cardiac murmur, unspecified; C25.9 Malignant neoplasm of pancreas, unspecified; C78.7 Secondary malignant neoplasm of liver and intrahepatic bile duct; C79.51 Secondary malignant neoplasm of bone; D64.9 Anemia, unspecified; Z87.19 Personal history of other diseases of the digestive system; Z86.16 Personal history of COVID-19; Z90.49 Acquired absence of other specified parts of digestive tract; Z87.891 Personal history of nicotine dependence; Z79.4 Long term (current) use of insulin; Z79.899 Other long term (current) drug therapy; Z88.0 Allergy status to penicillin; Z88.3 Allergy status to other anti-infective agents; Z88.2 Allergy status to sulfonamides; Z91.041 Radiographic dye allergy status; N28.9 Disorder of kidney and ureter, unspecified; Z86.19 Personal history of other infectious and parasitic diseases
CPT/HCPCS: 45378; J2250; J3010; J2704

== ENCOUNTER → 2021-12-08 | Outpatient (CLI) | payer BC, MEDICARE, OTHER ==
--- NOTE | 2021-12-09 16:18 | MM ---
Reason for Exam: Screening (asymptomatic). Last mammogram was performed 1 year(s) and 1 month(s) ago. Patient History: Menarche at age 14. First Full-Term at age 31. Postmenopausal. Other cancer. Patient used Hormonal Contraceptives for 2 years. Paternal grandmother had breast cancer. Risk Values: Maribel 5 year model risk: 1.0%. NCI Lifetime model risk: 10.0%. Prior Study Comparison: 02/05/2016 Screening Mammogram, [facility]. 09/08/2018 Bilateral Screening Mammogram, [facility]. 12/06/2020 Bilateral Screening Mammogram, [facility]. Tissue Density: There are scattered fibroglandular densities. Findings: Analyzed By CAD. Pattern appears symmetrical and stable. A few benign punctate calcifications are present. No suspicious groups of microcalcifications, spiculated or lobular masses, architectural distortion or other secondary signs of malignancy are mammographically apparent. Overall Assessment: Benign, BI-RAD 2 Management: Screening Mammogram of both breasts in 1 year. A negative mammogram report should not preclude additional follow up of suspicious palpable abnormalities. Patient should continue monthly self breast exam. A clinical breast exam by your physician is recommended on an annual basis and results should be correlated with mammographic findings. Electronically signed and approved by: Esa Walls D.O. Radiologis
== END | disposition home or self-care (01) ==
LOC: RADMAMWWP 07:25
PROVIDERS: ATTEND Obstetrics & Gynecology
DX: Z12.31 Encounter for screening mammogram for malignant neoplasm of breast (principal); Z78.0 Asymptomatic menopausal state; Z80.3 Family history of malignant neoplasm of breast
CPT/HCPCS: 77063; 77067

== ENCOUNTER → 2022-06-05 | Outpatient (CLI) | payer MEDICARE, OTHER ==
--- NOTE | 2022-06-05 08:42 | USB ---
Reason for Exam: Clinical finding. Patient History: Menarche at age 14. First Full-Term at age 31. Postmenopausal. Other cancer. Patient used Hormonal Contraceptives for 2 years. Paternal grandmother had breast cancer. Risk Values: Maribel 5 year model risk: 1.0%. NCI Lifetime model risk: 10.0%. Technique: Method: Targeted. Prior Study Comparison: 09/08/2018 Bilateral Screening Mammogram, [facility]. 12/06/2020 Bilateral Screening Mammogram, [facility]. 12/08/2021 Bilateral MG 3D screening mammo w/cad, [facility]. Findings: The lower inner quadrant of the left breast and the retroareolar of the left breast were scanned. No solid or cystic masses are identified. No abnormality to correlate with the patient's reported small palpable abnormalities the lower inner quadrant of the. Overall Assessment: Incomplete: need additional imaging evaluation, BI-RAD 0 Management: Diagnostic Mammogram of the left breast. A clinical breast exam by your physician is recommended on an annual basis and results should be correlated with mammographic findings. This exam should not preclude additional follow-up of suspicious palpable abnormalities. Results were given to the patient verbally at the time of exam. Electronically signed and approved by: Esa Walls D.O. Radiologis
--- NOTE | 2022-06-05 09:16 | MM ---
Reason for Exam: Clinical finding. Last screening mammogram was performed 5 month(s) ago. Indicated Problems: Palpable abnormality of the left side. Patient History: Menarche at age 14. First Full-Term at age 31. Postmenopausal. Other cancer. Patient used Hormonal Contraceptives for 2 years. Paternal grandmother had breast cancer. Risk Values: Maribel 5 year model risk: 1.0%. NCI Lifetime model risk: 10.0%. Prior Study Comparison: 09/08/2018 Bilateral Screening Mammogram, [facility]. 12/06/2020 Bilateral Screening Mammogram, [facility]. 12/08/2021 Bilateral MG 3D screening mammo w/cad, [facility]. Tissue Density: Left: The breast tissue is heterogeneously dense. This may lower the sensitivity of mammography. Findings: Analyzed By CAD. Pattern appears stable. A benign calcification is within the left breast. No discrete suspicious mammographic quadrant palpable regions identified. No suspicious spiculated or lobular masses, cluster microcalcifications, distortion, or other secondary signs are radiographically apparent. Follow-up mammogram on schedule is recommended. Overall Assessment: Benign, BI-RAD 2 Management: Screening Mammogram of both breasts in 8 months. A clinical breast exam by your physician is recommended on an annual basis and results should be correlated with mammographic findings. This exam should not preclude additional follow-up of suspicious palpable abnormalities. Results were given to the patient verbally at the time of exam. Electronically signed and approved by: Esa Walls D.O. Radiologis
== END | disposition home or self-care (01) ==
LOC: RADUSWWP 08:11
PROVIDERS: ATTEND Family Medicine
DX: N63.20 Unspecified lump in the left breast, unspecified quadrant (principal); R92.2 Inconclusive mammogram; Z78.0 Asymptomatic menopausal state; Z80.3 Family history of malignant neoplasm of breast
CPT/HCPCS: 77065; 76642; G0279; 77061

== ENCOUNTER 2022-09-27 15:04 | Emergency (ER) | payer MEDICARE, OTHER ==
[2022-09-27] MEDS ORDERED: IBUPROFEN 600 MG TAB PO STA (16:18)
[2022-09-27] MEDS ORDERED: SODIUM CHLORIDE 0.9% 1,000 ML IV ONE (16:18)
--- NOTE | 2022-09-27 16:21 | ED ---
General Adult HPI - General Chief complaint: Fever Stated complaint: fever Time Seen by Provider: 09/27/22 16:07 Source: patient, RN notes reviewed Mode of arrival: ambulatory Limitations: no limitations - History of Present Illness Initial comments: 31-year-old female with a past medical history significant for neuroendocrine tumor of the pancreas presents to the emergency department with a chief complaint of high fever times one day. She is also complaining of accompanying symptoms of generalized body aches. She took Tylenol 2 hours prior to arrival. She reports she can only get her fever down to 100.5 she does report recent sick contacts. She is not vaccinated against Covid or influenza. She denies any dizziness, lightheaded, cough, nausea, vomiting, abdominal pain, chest pain, shortness of breath. - Related Data Home Medications Medication Instructions Recorded Confirmed lisinopriL [Zestril] 20 mg PO 1900 12/29/13 11/11/21 metFORMIN HCL [Glucophage] 1,000 mg PO AC-SUPPER 02/15/20 11/11/21 metFORMIN HCL [Glucophage] 500 mg PO QAM 02/15/20 11/11/21 Insulin Glargine,Hum.rec.anlog 20 unit SQ HS 02/13/21 11/11/21 [Basaglar Kwikpen U-100] amLODIPine [Norvasc] 5 mg PO DAILY 02/13/21 11/11/21 Cholecalciferol [Vitamin D3 (25 150 mcg PO DAILY 11/11/21 11/11/21 Mcg = 1000 Iu)] Everolimus 10 mg PO HS 11/11/21 11/11/21 Ferrous Sulfate [Feosol] 325 mg PO DAILY 11/11/21 11/11/21 Insulin Lispro [humaLOG Kwikpen] 0 unit SQ TID-W/MEALS PRN 11/11/21 11/11/21 Sandostatin Injection 1 dose IJ QMONTHLY 11/11/21 11/11/21 Allergies Allergy/AdvReac Type Severity Reaction Status Date / Time erythromycin base Allergy Unknown Verified 09/27/22 15:27 Penicillins Allergy Unknown Verified 09/27/22 15:27 Childhood Sulfa (Sulfonamide Allergy Rash/Hives Verified 09/27/22 15:27 Antibiotics) sulfamethoxazole Allergy rash/hives/ Verified 09/27/22 15:27 [From Bactrim] ROSELIA/weaknes s trimethoprim [From Bactrim] Allergy rash/hives/ Verified 09/27/22 15:27 septic GANOLINIUM CONTRAST Allergy Unknown Uncoded 09/27/22 15:27 Review of Systems ROS Statement: Those systems with pertinent positive or pertinent negative responses have been documented in the HPI. ROS Other: All systems not noted in ROS Statement are negative. Past Medical History Past Medical History: Cancer, Diabetes Mellitus, Hypertension, Liver Disease Additional Past Medical History / Comment(s): hx neuroendocrine tumor, liver lesions, "slight heart murmur", pancreatic cancer with metastasis to liver and lower vertebrae, plantar fasciitis , hernia x 2, anemia(gets infusions occ), decreased kidney function, hx bowel obstruction. COVID x 2(2019,05/2021) History of Any Multi-Drug Resistant Organisms: None Reported Past Surgical History: Section, Cholecystectomy, Orthopedic Surgery Additional Past Surgical History / Comment(s): whipple surgery and tumor removed. orthopedic surgery john feet, c-sect x 1 Past Anesthesia/Blood Transfusion Reactions: No Reported Reaction Additional Past Anesthesia/Blood Transfusion Reaction / Comment(s): pt requests to be transfered to [facility] if ever any need to be transfered to another facility Past Psychological History: No Psychological Hx Reported Smoking Status: Former smoker Past Alcohol Use History: None Reported Past Drug Use History: None Reported - Past Family History Mother Family Medical History: No Reported History Father Family Medical History: Cancer Additional Family Medical History / Comment(s): colon General Exam - General Exam Comments Initial Comments: General: Alert, in no acute distress, febrile Head: atraumatic normocephalic. Eyes PERRL, EOMI intact, mucous membranes moist Respiratory: Lungs clear to auscultation bilaterally Cardiovascular: Tachycardic Abdominal: Soft without guarding or rebound Extremities: Normal inspection with full range of motion and normal capillary refill Neuroogic: alert and oriented 3, CN II-XII intact, able to ambulate with steady gait Skin: warm dry and intact with normal color Limitations: no limitations Course Vital Signs 09/27/22 09/27/22 09/27/22 15:19 16:50 19:18 Temperature 101.8 F H 99.0 F 998.9 F H Pulse Rate 120 H 89 Respiratory 20 16 Rate Blood Pressure 165/84 148/69 O2 Sat by Pulse 96 98 Oximetry Medical Decision Making - Medical Decision Making Was pt. sent in by a medical professional or institution (MANJEET Lee, [employer], urgent care, hospital, or [facility]...) When possible be specific @ -[No] Did you speak to anyone other than the patient for history (EMS, parent, family, police, friend...)? What history was obtained from this source @ -[No] Did you review nursing and triage notes (agree or disagree)? Why? @ -[I reviewed and agree with nursing and triage notes] Were old charts reviewed (outside hosp., previous admission, EMS record, old EKG, old radiological studies, urgent care reports/EKG's, [facility] records)? Report findings @ -[No old charts were reviewed] Differential Diagnosis (chest pain, altered mental status, abdominal pain women, abdominal pain men, vaginal bleeding, weakness, fever, dyspnea, syncope, headache, dizziness, GI bleed, back pain, seizure, CVA, palpatations, mental health, musculoskeletal)? @ -[not applicable] EKG interpreted by me (3pts min.). @ -[As above] X-rays interpreted by me (1pt min.). @ -Chest x-ray negative for any evidence of pleural effusion CT interpreted by me (1pt min.). @ -[None done] U/S interpreted by me (1pt. min.). @ -[None done] What testing was considered but not performed or refused? (CT, X-rays, U/S, labs)? Why? @ -[None] What meds were considered but not given or refused? Why? @ -[None] Did you discuss the management of the patient with other professionals (pr ofessionals i.e. MANJEET Lee, [employer], lab, RT, psych nurse, social media editor, grinder machine setter, teacher, agricultural technical officer, telehealth case manager)? Give summary @ -[No] Was smoking cessation discussed for >3mins.? @ -[No] Was critical care preformed (if so, how long)? @ -[No] Were there social determinants of health that impacted care today? How? (Homelessness, low income, unemployed, alcoholism, drug addiction, tra nsportation, low edu. Level, literacy, decrease access to med. care, halfway, rehab)? @ -[No] Was there de-escalation of care discussed even if they declined (Discuss DNR or withdrawal of care, Hospice)? DNR status @ -[No] What co-morbidities impacted this encounter? (DM, HTN, Smoking, COPD, CAD, Cancer, CVA, ARF, Chemo, Hep., AIDS, mental health diagnosis, sleep apnea, morbid obesity)? @ -[None] Was patient admitted / discharged? Hospital course, mention meds given and route, prescriptions, significant lab abnormalities, going to OR and other pertinent info. @ -Discharged. This is a 51-year-old female to the emergency department with fever. Patient had thorough history and physical exam performed while in the ED. Heart rate regular rate and rhythm lungs clear to auscultation bilaterally abdomen soft nontender. Patient initially febrile upon arrival. Patient was given Tylenol Motrin and 1 L IV fluids with symptomatic relief. She had lab work and imaging performed which was negative. I discussed the results in detail with the patient verbalized understanding all questions were addressed. Return precautions were discussed at length. Patient discharged in stable condition. He is discussed with Dr. Staples agrees with plan of care Undiagnosed new problem with uncertain prognosis? @ -[No] Drug Therapy requiring intensive monitoring for toxicity (Heparin, Nitro, Insulin, Cardizem)? @ -[No] Were any procedures done? @ -[No] Diagnosis/symptom? @ -fever Acute, or Chronic, or Acute on Chronic? @ -acute Uncomplicated (without systemic symptoms) or Complicated (systemic symptoms)? @ -uncomplicated Side effects of treatment? @ -[No] Exacerbation, Progression, or Severe Exacerbation? @ -[No] Poses a threat to life or bodily function? How? (Chest pain, [place], [place], pneumonia, PE, COPD, DKA, ARF, appy, cholecystitis, CVA, Diverticulitis, Homicidal, Suicidal, threat to staff... and all critical care pts) @ -low likelihood - Lab Data Result diagrams: 09/27/22 16:47 09/27/22 16:47 Lab Results 09/27/22 09/27/22 09/27/22 Range/Units 16:47 16:47 16:47 WBC 9.5 (3.8-10.6) k/uL RBC 4.14 (3.80-5.40) m/uL Hgb 10.6 L (11.4-16.0) gm/dL Hct 31.5 L (34.0-46.0) % MCV 76.1 L (80.0-100.0) fL MCH 25.7 (25.0-35.0) pg MCHC 33.7 (31.0-37.0) g/dL RDW 13.8 (11.5-15.5) % Plt Count 218 (150-450) k/uL MPV 7.4 Neutrophils % 89 % Lymphocytes % 6 % Monocytes % 3 % Eosinophils % 2 % Basophils % 0 % Neutrophils # 8.5 H (1.3-7.7) k/uL Lymphocytes # 0.6 L (1.0-4.8) k/uL Monocytes # 0.3 (0-1.0) k/uL Eosinophils # 0.2 (0-0.7) k/uL Basophils # 0.0 (0-0.2) k/uL Microcytosis Slight Sodium 137 (137-145) mmol/L Potassium 4.3 (3.5-5.1) mmol/L Chloride 103 (98-107) mmol/L Carbon Dioxide 22 (22-30) mmol/L Anion Gap 12 mmol/L BUN 24 H (7-17) mg/dL Creatinine 1.41 H (0.52-1.04) mg/dL Est GFR (CKD-EPI)AfAm 51 (>60 ml/min/1.73 sqM) Est GFR (CKD-EPI)NonAf 44 (>60 ml/min/1.73 sqM) Glucose 268 H (74-99) mg/dL Calcium 8.2 L (8.4-10.2) mg/dL Total Bilirubin 0.4 (0.2-1.3) mg/dL AST 86 H (14-36) U/L ALT 77 H (4-34) U/L Alkaline Phosphatase 113 (38-126) U/L Total Protein 7.0 (6.3-8.2) g/dL Albumin 4.0 (3.5-5.0) g/dL Urine Color Yellow Urine Appearance Cloudy H (Clear) Urine pH 5.0 (5.0-8.0) Ur Specific [place] 1.013 (1.001-1.035) Urine Protein 1+ H (Negative) Urine Glucose (UA) Negative (Negative) Urine Ketones Negative (Negative) Urine Blood Large H (Negative) Urine Nitrite Negative (Negative) Urine Bilirubin Negative (Negative) Urine Urobilinogen <2.0 (<2.0) mg/dL Ur Leukocyte Esterase Trace H (Negative) Urine RBC 134 H (0-5) /hpf Urine WBC 3 (0-5) /hpf Ur Squamous Epith Cells 1 (0-4) /hpf Urine Bacteria Rare H (None) /hpf Urine Mucus Rare H (None) /hpf Influenza Type A (PCR) (Not Detectd) Influenza Type B (PCR) (Not Detectd) RSV (PCR) (Not Detectd) SARS-CoV-2 (PCR) (Not Detectd) Group A Strep (PCR) (Not Detectd) 09/27/22 09/27/22 Range/Units 16:47 16:47 WBC (3.8-10.6) k/uL RBC (3.80-5.40) m/uL Hgb (11.4-16.0) gm/dL Hct (34.0-46.0) % MCV (80.0-100.0) fL MCH (25.0-35.0) pg MCHC (31.0-37.0) g/dL RDW (11.5-15.5) % Plt Count (150-450) k/uL MPV Neutrophils % % Lymphocytes % % Monocytes % % Eosinophils % % Basophils % % Neutrophils # (1.3-7.7) k/uL Lymphocytes # (1.0-4.8) k/uL Monocytes # (0-1.0) k/uL Eosinophils # (0-0.7) k/uL Basophils # (0-0.2) k/uL Microcytosis Sodium (137-145) mmol/L Potassium (3.5-5.1) mmol/L Chloride (98-107) mmol/L Carbon Dioxide (22-30) mmol/L Anion Gap mmol/L BUN (7-17) mg/dL Creatinine (0.52-1.04) mg/dL Est GFR (CKD-EPI)AfAm (>60 ml/min/1.73 sqM) Est GFR (CKD-EPI)NonAf (>60 ml/min/1.73 sqM) Glucose (74-99) mg/dL Calcium (8.4-10.2) mg/dL Total Bilirubin (0.2-1.3) mg/dL AST (14-36) U/L ALT (4-34) U/L Alkaline Phosphatase (38-126) U/L Total Protein (6.3-8.2) g/dL Albumin (3.5-5.0) g/dL Urine Color Urine Appearance (Clear) Urine pH (5.0-8.0) Ur Specific [place] (1.001-1.035) Urine Protein (Negative) Urine Glucose (UA) (Negative) Urine Ketones (Negative) Urine Blood (Negative) Urine Nitrite (Negative) Urine Bilirubin (Negative) Urine Urobilinogen (<2.0) mg/dL Ur Leukocyte Esterase (Negative) Urine RBC (0-5) /hpf Urine WBC (0-5) /hpf Ur Squamous Epith Cells (0-4) /hpf Urine Bacteria (None) /hpf Urine Mucus (None) /hpf Influenza Type A (PCR) Not Detected (Not Detectd) Influenza Type B (PCR) Not Detected (Not Detectd) RSV (PCR) Not Detected (Not Detectd) SARS-CoV-2 (PCR) Not Detected (Not Detectd) Group A Strep (PCR) NOT DETECTED (Not Detectd) Disposition Clinical Impression: Fever Disposition: HOME SELF-CARE Condition: Stable Instructions (If sedation given, give patient instructions): Fever in Adults (ED) Additional Instructions: Return to the nearest emergency department symptoms worsen or persist Is patient prescribed a controlled substance at d/c from ED?: No Referrals: Esa Keller DO [Primary Care Provider] - 1-2 days Time of Disposition: 18:47
[2022-09-27 17:00] LABS: Basophils % (A) 0 %; Eosinophils # (A) 0.2 k/uL (0-0.7); Eosinophils % (A) 2 %; HCT 31.5 % (34.0-46.0); HGB 10.6 gm/dL (11.4-16.0); Lymphocytes # (A) 0.6 k/uL (1.0-4.8); Lymphocytes % (A) 6 %; MCH 25.7 pg (25.0-35.0); MCHC 33.7 g/dL (31.0-37.0); MCV 76.1 fL (80.0-100.0); Mean Platelet Volume 7.4; Microcytosis Slight; Monocytes # (A) 0.3 k/uL (0-1.0); Monocytes % (A) 3 %; Neutrophils # (A) 8.5 k/uL (1.3-7.7); Neutrophils % (A) 89 %; Platelet Count 218 k/uL (150-450); RBC 4.14 m/uL (3.80-5.40); RDW 13.8 % (11.5-15.5); WBC 9.5 k/uL (3.8-10.6)
--- NOTE | 2022-09-27 17:09 | XR ---
EXAMINATION TYPE: XR chest 2V DATE OF EXAM: 09/27/2022 COMPARISON: Chest x-ray March 06, 2021 HISTORY: Fever TECHNIQUE: Frontal and lateral views of the chest are obtained. FINDINGS: There is no suspicious focal air space opacity, pleural effusion, or pneumothorax seen. T he cardiac silhouette size is stable and within normal limits. The osseous structures are intact. IMPRESSION: No acute pulmonary process.
[2022-09-27 17:14] LABS: Calcium 8.2 mg/dL (8.4-10.2); Potassium 4.3 mmol/L (3.5-5.1); Total Bilirubin 0.4 mg/dL (0.2-1.3)
[2022-09-27 17:16] LABS: Appearance,Urine Cloudy (Clear); Bacteria,Urine Rare /hpf; Bilirubin,Urine Negative (Negative); Blood,Urine Large (Negative); Color,Urine Yellow; Glucose,Urine (UA) Negative (Negative); Ketones,Urine Negative (Negative); Leukocyte Esterase,Urine Trace (Negative); Mucus,Urine Rare /hpf; Nitrite,Urine Negative (Negative); Protein,Urine 1+ (Negative); RBC,Urine 134 /hpf (0-5); Specific Gravity,Urine 1.013 (1.001-1.035); Squamous Epithelial Cell,Urine 1 /hpf (0-4); Urobilinogen,Urine <2.0 mg/dL (<2.0); WBC,Urine 3 /hpf (0-5)
[2022-09-27 19:19] VITALS: BP 148/69; PULSE 89; RESP 16; TEMP 998.9
== END 2022-09-27 19:30 | disposition home or self-care (01) ==
LOC: EC 15:04
DX: R50.9 Fever, unspecified (principal); I10 Essential (primary) hypertension; E11.9 Type 2 diabetes mellitus without complications; Z79.84 Long term (current) use of oral hypoglycemic drugs; Z79.899 Other long term (current) drug therapy; Z87.891 Personal history of nicotine dependence; Z88.0 Allergy status to penicillin; Z88.1 Allergy status to other antibiotic agents; Z88.2 Allergy status to sulfonamides; Z88.8 Allergy status to other drugs, medicaments and biological substances; Z28.310 Unvaccinated for COVID-19; Z20.822 Contact with and (suspected) exposure to COVID-19; Z90.49 Acquired absence of other specified parts of digestive tract
CPT/HCPCS: 36415; 71046; 80053; 81001; 85025; 87040; 87636; 87651; 96360; 99283

== ENCOUNTER → 2022-12-22 | Outpatient (CLI) | payer MEDICARE, OTHER ==
--- NOTE | 2022-12-22 14:14 | MM ---
Reason for Exam: Follow-up at short interval from prior study. Last screening mammogram was performed 12 month(s) ago. Patient History: Menarche at age 14. First Full-Term at age 31. Postmenopausal. Patient has history of breast feeding. Previous chemotherapy at age 48. Patient used Hormonal Contraceptives for 2 years. Paternal grandmother had breast cancer. Risk Values: Maribel 5 year model risk: 1.1%. NCI Lifetime model risk: 9.9%. Prior Study Comparison: 06/13/2010 Bilateral Screening Mammogram, [facility]. 09/05/2013 Bilateral Screening Mammogram, [facility]. 01/30/2015 Screening Mammogram, [facility]. 02/05/2016 Screening Mammogram, [facility]. 09/08/2018 Bilateral Screening Mammogram, [facility]. 12/06/2020 Bilateral Screening Mammogram, [facility]. 12/08/2021 Bilateral MG 3D screening mammo w/cad, [facility]. 06/05/2022 Left MG 3D diag mammo w/cad LT, [facility]. 06/05/2022 Left US breast limited LT, [facility]. Tissue Density: There are scattered fibroglandular densities. Findings: Analyzed By CAD. No new suspicious mass or group of calcification within either breast. No architectural distortion. Benign-appearing stable calcifications within both breasts. Overall Assessment: Benign, BI-RAD 2 Management: Screening Mammogram of both breasts in 1 year. A clinical breast exam by your physician is recommended on an annual basis and results should be correlated with mammographic findings. This exam should not preclude additional follow-up of suspicious palpable abnormalities. Results were given to the patient verbally at the time of exam. Note on Maribel scores and lifetime risk: 1. A Maribel score greater than 3% is considered moderate risk. If this is the case, consider specialist referral to assess eligibility for a risk reducing agent. If overall lifetime risk for the development of breast cancer is 20% or higher, the patient may qualify for future screening with alternating mammogram and breast MRI. Electronically signed and approved by: Jono Barillas D.O.
== END | disposition home or self-care (01) ==
LOC: RADMAMWWP 13:41
PROVIDERS: ATTEND Obstetrics & Gynecology
DX: N63.10 Unspecified lump in the right breast, unspecified quadrant (principal); N63.20 Unspecified lump in the left breast, unspecified quadrant; N64.4 Mastodynia; Z78.0 Asymptomatic menopausal state; Z80.3 Family history of malignant neoplasm of breast
CPT/HCPCS: 77066; G0279; 77062

== ENCOUNTER → 2023-07-16 | Outpatient (CLI) | payer OTHER, BC ==
[2023-07-16 18:40] LABS: Basophils # (A) 0.02 X 10*3/uL (0.00-0.10); Basophils % (A) 0.4 %; Eosinophils # (A) 0.11 X 10*3/uL (0.04-0.35); HCT 31.2 % (37.2-46.3); HGB 9.9 g/dL (12.0-15.0); Lymphocytes # (A) 1.23 X 10*3/uL (0.90-5.00); Lymphocytes % (A) 22.7 %; MCH 25.5 pg (27.0-32.0); MCHC 31.7 g/dL (32.0-37.0); MCV 80.4 FL (80.0-97.0); Mean Platelet Volume 11.4 FL (9.5-12.2); Monocytes # (A) 0.23 X 10*3/uL (0.20-1.00); Monocytes % (A) 4.2 %; NRBC Per 100 WBC 0 X 10*3/uL (0.00-0.01); Neutrophils # (A) 3.79 X 10*3/uL (1.80-7.70); Platelet Count 218 X 10*3/uL (140-440); RBC 3.88 X 10*6/uL (4.10-5.20); RDW 13.8 % (11.5-14.5); WBC 5.42 X 10*3/uL (4.50-10.00)
[2023-07-17 03:20] LABS: Appearance,Urine Clear (Clear); Bilirubin,Urine Negative (Negative); Blood,Urine Moderate (Negative); Color,Urine Yellow (Yellow); Ketones,Urine Negative (Negative); Nitrite,Urine Negative (Negative); PH, Urine 5.5; Specific Gravity,Urine 1.008 (1.001-1.030); Urobilinogen,Urine 0.2 E.U./DL
[2023-07-17 03:50] LABS: Bacteria,Urine None Seen (None Seen)
[2023-07-17 03:52] LABS: ALT 62 U/L (8-44); AST 37 U/L (13-35); Albumin 4.2 g/dL (3.8-4.9); Alkaline Phosphatase 118 U/L (41-126); BUN/Creat Ratio 17.09 Ratio (12.00-20.00); Blood Urea Nitrogen 18.8 mg/dL (9.0-27.0); Calcium 9.1 mg/dL (8.7-10.3); Carbon Dioxide 24.3 mmol/L (21.6-31.8); Chloride 99 mmol/L (96-109); Glucose 362 mg/dL (70-110); Magnesium 1.7 mg/dL (1.5-2.4); Potassium 4.1 mmol/L (3.5-5.5); Sodium 135 mmol/L (135-145); Total Bilirubin <0.2 mg/dL (0.3-1.2); Total Protein 7.2 g/dL (6.2-8.2)
--- NOTE | 2023-07-18 14:21 | US ---
EXAMINATION TYPE: US kidneys/renal and bladder DATE OF EXAM: 07/16/2023 COMPARISON: None CLINICAL INDICATION: Female, 52 years old with history of N28.9 DISORDER OF KIDNEY AND URETER, UNSPEC IFIED; EXAM MEASUREMENTS: Right Kidney: 10.6 x 5.1 x 5.2 cm Left Kidney: 10.0 x 5.3 x 4.6 cm Right Kidney: No hydronephrosis or masses seen Left Kidney: No hydronephrosis or masses seen Bladder: wnl Bilateral Jets seen: right jet seen, left jet not seen Diffusely echogenic hepatic parenchyma. IMPRESSION: 1. No hydronephrosis. 2. Incidental: Moderate to severe hepatic steatosis. Appropriate clinical management is advised.
== END | disposition home or self-care (01) ==
LOC: RADUSWWP 15:52
PROVIDERS: ATTEND Family Medicine
DX: N28.9 Disorder of kidney and ureter, unspecified (principal); K76.0 Fatty (change of) liver, not elsewhere classified
CPT/HCPCS: 76770; 80053; 81001; 83735; 85025

== ENCOUNTER → 2023-08-17 | Outpatient (CLI) | payer OTHER, BC ==
[2023-08-17 16:25] LABS: BUN/Creat Ratio 19.38 Ratio (12.00-20.00); Blood Urea Nitrogen 25.2 mg/dL (9.0-27.0); Calcium 9.2 mg/dL (8.7-10.3); Carbon Dioxide 23.8 mmol/L (21.6-31.8); Chloride 107 mmol/L (96-109); Glucose 182 mg/dL (70-110); Potassium 4.5 mmol/L (3.5-5.5); Sodium 142 mmol/L (135-145)
== END | disposition home or self-care (01) ==
LOC: LABWHC1 10:04
PROVIDERS: ATTEND Internal Medicine
DX: E11.9 Type 2 diabetes mellitus without complications (principal)
CPT/HCPCS: 36415; 80048

== ENCOUNTER → 2023-09-14 | Outpatient (CLI) | payer OTHER, BC ==
[2023-09-14 19:11] LABS: Basophils # (A) 0.04 X 10*3/uL (0.00-0.10); Basophils % (A) 0.6 %; Eosinophils # (A) 0.16 X 10*3/uL (0.04-0.35); Eosinophils % (A) 2.5 %; HCT 34.6 % (37.2-46.3); HGB 10.6 g/dL (12.0-15.0); Lymphocytes # (A) 1.61 X 10*3/uL (0.90-5.00); Lymphocytes % (A) 25.2 %; MCH 24.9 pg (27.0-32.0); MCHC 30.6 g/dL (32.0-37.0); MCV 81.2 FL (80.0-97.0); Mean Platelet Volume 11.1 FL (9.5-12.2); Monocytes # (A) 0.27 X 10*3/uL (0.20-1.00); Monocytes % (A) 4.2 %; NRBC Per 100 WBC 0 X 10*3/uL (0.00-0.01); Neutrophils # (A) 4.28 X 10*3/uL (1.80-7.70); Platelet Count 273 X 10*3/uL (140-440); RBC 4.26 X 10*6/uL (4.10-5.20); RDW 13.8 % (11.5-14.5); WBC 6.39 X 10*3/uL (4.50-10.00)
[2023-09-14 19:12] LABS: Protein, Total 7.7 g/dL (6.2-8.2)
[2023-09-14 19:43] LABS: % Iron Saturation 20.88 (12.00-45.00); ALT 74 U/L (8-44); AST 49 U/L (13-35); Albumin 4.7 g/dL (3.8-4.9); Albumin/Globulin Ratio 1.52 Ratio (1.60-3.17); Alkaline Phosphatase 135 U/L (41-126); BUN/Creat Ratio 18.92 Ratio (12.00-20.00); Blood Urea Nitrogen 22.7 mg/dL (9.0-27.0); Calcium 9.6 mg/dL (8.7-10.3); Carbon Dioxide 25.8 mmol/L (21.6-31.8); Chloride 104 mmol/L (96-109); Globulin 3.1 g/dL (1.6-3.3); Glucose 101 mg/dL (70-110); Iron 71 UG/DL (50-170); Sodium 143 mmol/L (135-145); Total Bilirubin 0.3 mg/dL (0.3-1.2); Total Iron Binding Capacity 340 UG/DL (228-460); Total Protein 7.8 g/dL (6.2-8.2)
[2023-09-14 22:16] LABS: Hepatitis B Surface Antigen Nonreactive (Nonreactive); Hepatitis C IgG Antibody Nonreactive (Nonreactive)
[2023-09-14 22:35] LABS: Ceruloplasmin 30.8 mg/dL (20.0-60.0)
[2023-09-15 12:57] LABS: Smooth Muscle Antibody 7 UNITS (<20)
[2023-09-15 18:18] LABS: Albumin 4.24 g/dL (3.80-4.90)
== END | disposition home or self-care (01) ==
LOC: LABWHC1 14:09
PROVIDERS: ATTEND Internal Medicine Gastroenterology
DX: R74.8 Abnormal levels of other serum enzymes (principal)
CPT/HCPCS: 36415; 80053; 81596; 82103; 82390; 82728; 83516; 83540; 83550; 84165; 85025; 86038; 86803; 87340

== ENCOUNTER → 2024-04-12 | Outpatient (CLI) | payer OTHER, BC ==
[2024-04-12 15:13] LABS: Basophils # (A) 0.04 X 10*3/uL (0.00-0.10); Basophils % (A) 0.8 %; Eosinophils # (A) 0.13 X 10*3/uL (0.04-0.35); Eosinophils % (A) 2.7 %; HCT 34.7 % (37.2-46.3); HGB 10.9 g/dL (12.0-15.0); Lymphocytes # (A) 1.46 X 10*3/uL (0.90-5.00); Lymphocytes % (A) 30.5 %; MCH 24.8 pg (27.0-32.0); MCHC 31.4 g/dL (32.0-37.0); Mean Platelet Volume 10.5 FL (9.5-12.2); Monocytes # (A) 0.25 X 10*3/uL (0.20-1.00); Monocytes % (A) 5.2 %; NRBC Per 100 WBC 0 X 10*3/uL (0.00-0.01); Neutrophils % (A) 60.6 %; Platelet Count 178 X 10*3/uL (140-440); RBC 4.39 X 10*6/uL (4.10-5.20); WBC 4.79 X 10*3/uL (4.50-10.00)
[2024-04-12 15:35] LABS: Albumin 4.2 g/dL (3.8-4.9); BUN/Creat Ratio 19.58 Ratio (12.00-20.00); Blood Urea Nitrogen 23.5 mg/dL (9.0-27.0); Calcium 8.9 mg/dL (8.7-10.3); Carbon Dioxide 22.1 mmol/L (21.6-31.8); Chloride 106 mmol/L (96-109); Globulin 2.8 g/dL (1.6-3.3); Glucose 198 mg/dL (70-110); Potassium 4.3 mmol/L (3.5-5.5); Sodium 141 mmol/L (135-145); Total Bilirubin 0.3 mg/dL (0.3-1.2)
[2024-04-12 15:36] LABS: ALT 61 U/L (8-44); AST 52 U/L (13-35); Alkaline Phosphatase 119 U/L (41-126)
== END | disposition home or self-care (01) ==
LOC: LABWHC1 09:35
PROVIDERS: ATTEND Nurse Practitioner Family
DX: R74.8 Abnormal levels of other serum enzymes (principal)
CPT/HCPCS: 36415; 80053; 85025

== ENCOUNTER 2024-05-04 02:43 | Emergency (ER) | payer OTHER, BC ==
[2024-05-04 02:53] LABS: Glucose,Whole Blood 135 mg/dL (70-110)
[2024-05-04 03:31] LABS: Basophils % (A) 1 %; Eosinophils # (A) 0.2 k/uL (0-0.7); Eosinophils % (A) 3 %; HCT 36.1 % (34.0-46.0); HGB 12.1 gm/dL (11.4-16.0); Lymphocytes # (A) 1.7 k/uL (1.0-4.8); Lymphocytes % (A) 32 %; MCH 25.8 pg (25.0-35.0); MCHC 33.4 g/dL (31.0-37.0); MCV 77.1 fL (80.0-100.0); Mean Platelet Volume 7.5; Monocytes # (A) 0.2 k/uL (0-1.0); Monocytes % (A) 3 %; Neutrophils # (A) 3.2 k/uL (1.3-7.7); Neutrophils % (A) 61 %; Platelet Count 241 k/uL (150-450); RBC 4.68 m/uL (3.80-5.40); RDW 14.1 % (11.5-15.5); WBC 5.3 k/uL (3.8-10.6)
[2024-05-04 03:36] LABS: ALT 60 U/L (4-34); AST 42 U/L (14-36); African American GFR (CKD) 58 (>60 ml/min/1.73 sqM); Albumin 4.6 g/dL (3.5-5.0); Alkaline Phosphatase 129 U/L (38-126); Anion Gap 9 mmol/L; Blood Urea Nitrogen 24 mg/dL (7-17); Calcium 9.5 mg/dL (8.4-10.2); Carbon Dioxide 23 mmol/L (22-30); Chloride 106 mmol/L (98-107); Glucose 105 mg/dL (74-99); Non-African American GFR(CKD) 50 (>60 ml/min/1.73 sqM); Potassium 3.8 mmol/L (3.5-5.1); Sodium 138 mmol/L (137-145); Total Bilirubin 0.3 mg/dL (0.2-1.3)
--- NOTE | 2024-05-04 05:34 | ED ---
Overdose HPI - General Chief Complaint: Overdose Stated Complaint: Insulin Overdose Time Seen by Provider: 05/04/24 03:05 Source: patient Mode of arrival: ambulatory - History of Present Illness Initial Comments: This patient is a 53-year-old woman who presents to be evaluated after she states she took probably more insulin than needed. The patient states that she had taken her long-acting insulin. She had then checked her blood sugar and it read up to 500. She took 14 units of sliding scale insulin and then when she checked her blood sugar again it was lower than the first reading had been. Patient states that she is concerned that her blood sugar will crash. She st ates that she feels like it may be going low already. Complaint: accidental overdose Onset/Timin -: hour(s) Intent: other Context: Intentional Overdose: other Treatments Prior to Arrival: none - Related Data Home Medications Medication Instructions Recorded Confirmed lisinopriL [Zestril] 20 mg PO 1900 12/29/13 11/11/21 metFORMIN HCL [Glucophage] 1,000 mg PO AC-SUPPER 02/15/20 11/11/21 metFORMIN HCL [Glucophage] 500 mg PO QAM 02/15/20 11/11/21 Insulin Glargine,Hum.rec.anlog 20 unit SQ HS 02/13/21 11/11/21 [Basaglar Kwikpen U-100] amLODIPine [Norvasc] 5 mg PO DAILY 02/13/21 11/11/21 Cholecalciferol [Vitamin D3 (25 150 mcg PO DAILY 11/11/21 11/11/21 Mcg = 1000 Iu)] Everolimus 10 mg PO HS 11/11/21 11/11/21 Ferrous Sulfate [Feosol] 325 mg PO DAILY 11/11/21 11/11/21 Insulin Lispro [humaLOG Kwikpen] 0 unit SQ TID-W/MEALS PRN 11/11/21 11/11/21 Sandostatin Injection 1 dose IJ QMONTHLY 11/11/21 11/11/21 Allergies Allergy/AdvReac Type Severity Reaction Status Date / Time erythromycin base Allergy Unknown Verified 05/04/24 02:57 Penicillins Allergy Unknown Verified 05/04/24 02:57 Childhood Sulfa (Sulfonamide Allergy Rash/Hives Verified 05/04/24 02:57 Antibiotics) sulfamethoxazole Allergy rash/hives/ Verified 05/04/24 02:57 [From Bactrim] ROSELIA/weaknes s trimethoprim [From Bactrim] Allergy rash/hives/ Verified 05/04/24 02:57 septic GANOLINIUM CONTRAST Allergy Unknown Uncoded 05/04/24 02:57 Review of Systems ROS Statement: Those systems with pertinent positive or pertinent negative responses have been documented in the HPI. ROS Other: All systems not noted in ROS Statement are negative. Constitutional: Denies: fever, weakness Eyes: Denies: vision change Respiratory: Denies: cough, dyspnea Cardiovascular: Denies: chest pain, syncope Gastrointestinal: Denies: abdominal pain, nausea, vomiting Skin: Denies: rash Neurological: Denies: headache, weakness Past Medical History Past Medical History: Cancer, Diabetes Mellitus, Hypertension, Liver Disease Additional Past Medical History / Comment(s): hx neuroendocrine tumor, liver lesions, "slight heart murmur", pancreatic cancer with metastasis to liver and lower vertebrae, plantar fasciitis , hernia x 2, anemia(gets infusions occ), decreased kidney function, hx bowel obstruction. COVID x 2(2019,05/2021) History of Any Multi-Drug Resistant Organisms: None Reported Past Surgical History: Section, Cholecystectomy, Orthopedic Surgery Additional Past Surgical History / Comment(s): whipple surgery and tumor removed. orthopedic surgery john feet, c-sect x 1 Past Anesthesia/Blood Transfusion Reactions: No Reported Reaction Additional Past Anesthesia/Blood Transfusion Reaction / Comment(s): pt requests to be transfered to [facility] if ever any need to be transfered to another facility Past Psychological History: No Psychological Hx Reported Smoking Status: Former smoker Past Alcohol Use History: None Reported Past Drug Use History: None Reported - Past Family History Mother Family Medical History: No Reported History Father Family Medical History: Cancer Additional Family Medical History / Comment(s): colon General Exam General appearance: alert, in no apparent distress Head exam: Present: atraumatic, normocephalic Eye exam: Present: normal appearance. Absent: scleral icterus, conjunctival injection ENT exam: Present: normal oropharynx Neck exam: Present: normal inspection Respiratory exam: Present: normal lung sounds bilaterally. Absent: respiratory distress, wheezes, rales, rhonchi, stridor, accessory muscle use Cardiovascular Exam: Present: regular rate, normal rhythm, normal heart sounds. Absent: systolic murmur, diastolic murmur, rubs, gallop GI/Abdominal exam: Present: soft. Absent: distended, tenderness, guarding, rebound, rigid, mass Extremities exam: Present: normal inspection, normal capillary refill. Absent: pedal edema, calf tenderness Back exam: Present: normal inspection. Absent: CVA tenderness (R), CVA tenderness (L) Neurological exam: Present: alert Skin exam: Present: warm, dry, intact, normal color. Absent: rash Course Vital Signs 05/04/24 05/04/24 02:53 05:50 Temperature 98 F 97.5 F L Pulse Rate 70 73 Respiratory 20 16 Rate Blood Pressure 189/100 145/96 O2 Sat by Pulse 100 98 Oximetry Medical Decision Making - Medical Decision Making Was pt. sent in by a medical professional or institution (, PA, PRINTING TABLE WORKER, urgent care, hospital, or penitentiary...) When possible be specific @ -[No] Did you speak to anyone other than the patient for history (EMS, parent, family, police, friend...)? What history was obtained from this source @ -[No] Did you review nursing and triage notes (agree or disagree)? Why? @ -[I reviewed and agree with nursing and triage notes] Were old charts reviewed (outside hosp., previous admission, EMS record, old EKG, old radiological studies, urgent care reports/EKG's, penitentiary records)? Report findings @ -[No old charts were reviewed] Differential Diagnosis (chest pain, altered mental status, abdominal pain women, abdominal pain men, vaginal bleeding, weakness, fever, dyspnea, syncope, headache, dizziness, GI bleed, back pain, seizure, CVA, palpatations, mental health, musculoskeletal)? @ -[not applicable] EKG interpreted by me (3pts min.). @ -[As above] X-rays interpreted by me (1pt min.). @ -[None done] CT interpreted by me (1pt min.). @ -[None done] U/S interpreted by me (1pt. min.). @ -[None done] What testing was considered but not performed or refused? (CT, X-rays, U/S, labs)? Why? @ -[None] What meds were considered but not given or refused? Why? @ -[None] Did you discuss the management of the patient with other professionals (professionals i.e. Dr., PA, PRINTING TABLE WORKER, lab, RT, psych nurse, social work program coordinator, program director cable television, teacher, wildlife conservation officer, geriatric case manager)? Give summary @ -[No] Was smoking cessation discussed for >3mins.? @ -[No] Was critical care preformed (if so, how long)? @ -[No] Were there social determinants of health that impacted care today? How? (Homelessness, low income, unemployed, alcoholism, drug addiction, transportation, low edu. Level, literacy, decrease access to med. care, long-term, rehab)? @ -[No] Was there de-escalation of care discussed even if they declined (Discuss DNR or withdrawal of care, Hospice)? DNR status @ -[No] What co-morbidities impacted this encounter? (DM, HTN, Smoking, COPD, CAD, Cancer, CVA, ARF, Chemo, Hep., AIDS, mental health diagnosis, sleep apnea, morbid obesity)? @ -[Diabetes Was patient admitted / discharged? Hospital course, mention meds given and route, prescriptions, significant lab abnormalities, going to OR and other pertinent info. @ -[Patient is 53-year-old woman who had accidentally administered excess insulin at home. The patient did have some hypoglycemia. She is treated here and is feeling better. She is observed with stable blood sugar and would like to go home. Undiagnosed new problem with uncertain prognosis? @ -[No] Drug Therapy requiring intensive monitoring for toxicity (Heparin, Nitro, Insulin, Cardizem)? @ -[No] Were any procedures done? @ -[No] Diagnosis/symptom? @ -[Accidental insulin overdose Acute hypoglycemia Acute, or Chronic, or Acute on Chronic? @ -[Acute Uncomplicated (without systemic symptoms) or Complicated (systemic symptoms)? @ -[Uncomplicated Side effects of treatment? @ -[No] Exacerbation, Progression, or Severe Exacerbation? @ -[No] Poses a threat to life or bodily function? How? (Chest pain, USA, OR, pneumonia, PE, COPD, DKA, ARF, appy, cholecystitis, CVA, Diverticulitis, Homicidal, Suicidal, threat to staff... and all critical care pts) @ -[No] All treatments are based on ideal body weight as in ED triage - Lab Data Result diagrams: 05/04/24 03:11 05/04/24 03:11 Lab Results 05/04/24 05/04/24 05/04/24 Range/Units 02:51 03:11 03:11 WBC 5.3 (3.8-10.6) k/uL RBC 4.68 (3.80-5.40) m/uL Hgb 12.1 (11.4-16.0) gm/dL Hct 36.1 (34.0-46.0) % MCV 77.1 L (80.0-100.0) fL MCH 25.8 (25.0-35.0) pg MCHC 33.4 (31.0-37.0) g/dL RDW 14.1 (11.5-15.5) % Plt Count 241 (150-450) k/uL MPV 7.5 Neutrophils % 61 % Lymphocytes % 32 % Monocytes % 3 % Eosinophils % 3 % Basophils % 1 % Neutrophils # 3.2 (1.3-7.7) k/uL Lymphocytes # 1.7 (1.0-4.8) k/uL Monocytes # 0.2 (0-1.0) k/uL Eosinophils # 0.2 (0-0.7) k/uL Basophils # 0.0 (0-0.2) k/uL Sodium 138 (137-145) mmol/L Potassium 3.8 (3.5-5.1) mmol/L Chloride 106 (98-107) mmol/L Carbon Dioxide 23 (22-30) mmol/L Anion Gap 9 mmol/L BUN 24 H (7-17) mg/dL Creatinine 1.24 H (0.52-1.04) mg/dL Est GFR (CKD-EPI)AfAm 58 (>60 ml/min/1.73 sqM) Est GFR (CKD-EPI)NonAf 50 (>60 ml/min/1.73 sqM) Glucose 105 H (74-99) mg/dL POC Glucose (mg/dL) 135 H (70-110) mg/dL POC Glu Power Plant Technician ID Eduardo Amenda Calcium 9.5 (8.4-10.2) mg/dL Total Bilirubin 0.3 (0.2-1.3) mg/dL AST 42 H (14-36) U/L ALT 60 H (4-34) U/L Alkaline Phosphatase 129 H (38-126) U/L Total Protein 8.0 (6.3-8.2) g/dL Albumin 4.6 (3.5-5.0) g/dL 05/04/24 05/04/24 05/04/24 Range/Units 03:32 03:51 04:27 WBC (3.8-10.6) k/uL RBC (3.80-5.40) m/uL Hgb (11.4-16.0) gm/dL Hct (34.0-46.0) % MCV (80.0-100.0) fL MCH (25.0-35.0) pg MCHC (31.0-37.0) g/dL RDW (11.5-15.5) % Plt Count (150-450) k/uL MPV Neutrophils % % Lymphocytes % % Monocytes % % Eosinophils % % Basophils % % Neutrophils # (1.3-7.7) k/uL Lymphocytes # (1.0-4.8) k/uL Monocytes # (0-1.0) k/uL Eosinophils # (0-0.7) k/uL Basophils # (0-0.2) k/uL Sodium (137-145) mmol/L Potassium (3.5-5.1) mmol/L Chloride (98-107) mmol/L Carbon Dioxide (22-30) mmol/L Anion Gap mmol/L BUN (7-17) mg/dL Creatinine (0.52-1.04) mg/dL Est GFR (CKD-EPI)AfAm (>60 ml/min/1.73 sqM) Est GFR (CKD-EPI)NonAf (>60 ml/min/1.73 sqM) Glucose (74-99) mg/dL POC Glucose (mg/dL) 89 93 119 H (70-110) mg/dL POC Glu Power Plant Technician ID Beal Tiffani Beal Tiffani Beal Tiffani Calcium (8.4-10.2) mg/dL Total Bilirubin (0.2-1.3) mg/dL AST (14-36) U/L ALT (4-34) U/L Alkaline Phosphatase (38-126) U/L Total Protein (6.3-8.2) g/dL Albumin (3.5-5.0) g/dL 05/04/24 Range/Units 05:32 WBC (3.8-10.6) k/uL RBC (3.80-5.40) m/uL Hgb (11.4-16.0) gm/dL Hct (34.0-46.0) % MCV (80.0-100.0) fL MCH (25.0-35.0) pg MCHC (31.0-37.0) g/dL RDW (11.5-15.5) % Plt Count (150-450) k/uL MPV Neutrophils % % Lymphocytes % % Monocytes % % Eosinophils % % Basophils % % Neutrophils # (1.3-7.7) k/uL Lymphocytes # (1.0-4.8) k/uL Monocytes # (0-1.0) k/uL Eosinophils # (0-0.7) k/uL Basophils # (0-0.2) k/uL Sodium (137-145) mmol/L Potassium (3.5-5.1) mmol/L Chloride (98-107) mmol/L Carbon Dioxide (22-30) mmol/L Anion Gap mmol/L BUN (7-17) mg/dL Creatinine (0.52-1.04) mg/dL Est GFR (CKD-EPI)AfAm (>60 ml/min/1.73 sqM) Est GFR (CKD-EPI)NonAf (>60 ml/min/1.73 sqM) Glucose (74-99) mg/dL POC Glucose (mg/dL) 119 H (70-110) mg/dL POC Glu Power Plant Technician ID Sharita Long Calcium (8.4-10.2) mg/dL Total Bilirubin (0.2-1.3) mg/dL AST (14-36) U/L ALT (4-34) U/L Alkaline Phosphatase (38-126) U/L Total Protein (6.3-8.2) g/dL Albumin (3.5-5.0) g/dL Disposition Clinical Impression: Accidental overdose of insulin Disposition: HOME SELF-CARE Condition: Good Instructions (If sedation given, give patient instructions): What to Do if Your Blood Sugar is Low (ED) Is patient prescribed a controlled substance at d/c from ED?: No Referrals: Esa Keller DO [Primary Care Provider] - 1-2 days
[2024-05-04 05:51] VITALS: BP 145/96; PULSE 73; RESP 16; TEMP 97.5
[2024-05-04 07:11] LABS: Glucose,Whole Blood 119 mg/dL (70-110)
[2024-05-04 07:11] LABS: Glucose,Whole Blood 93 mg/dL (70-110)
[2024-05-04 07:11] LABS: Glucose,Whole Blood 119 mg/dL (70-110)
[2024-05-04 07:11] LABS: Glucose,Whole Blood 89 mg/dL (70-110)
== END 2024-05-04 05:51 | disposition home or self-care (01) ==
LOC: EC 02:43
DX: T38.3X1A Poisoning by insulin and oral hypoglycemic [antidiabetic] drugs, accidental (unintentional), initial encounter (principal); E11.9 Type 2 diabetes mellitus without complications; Z87.891 Personal history of nicotine dependence; Z88.1 Allergy status to other antibiotic agents; Z88.0 Allergy status to penicillin; Z88.2 Allergy status to sulfonamides; Z91.041 Radiographic dye allergy status
CPT/HCPCS: 36415; 80053; 85025; 99284

== ENCOUNTER → 2024-05-19 | Outpatient (CLI) | payer OTHER, BC ==
[2024-05-19 19:06] LABS: Gliadin AB IgA, Deaminated Negative (Negative); Gliadin AB IgA, Unit 3.6 U/mL; Gliadin AB IgG, Deaminated Negative (Negative); Gliadin AB IgG, Unit 1.5 U/mL
== END | disposition home or self-care (01) ==
LOC: LABWHC1 08:23
PROVIDERS: ATTEND Internal Medicine Gastroenterology
DX: R14.0 Abdominal distension (gaseous) (principal)
CPT/HCPCS: 36415; 83516